=== PATIENT | female | born 1995 | race African-American/Black ===

== ENCOUNTER 2017-03-05 18:39 | Inpatient (IN) | payer MEDICAID, OTHER ==
--- NOTE | 2017-03-05 19:40 | ED ---
Psychiatric Complaint - HPI Summary HPI Summary: Pt arrives via ems and police for erratic behavior, not making sense. medication at pts residence has not been touched, "stock piled" per the act team person who called, leah stevens [phone]. also was mentioned that about a week ago pt appears fine and today was 'off the wall". On exam, patient is unable to answer direct questions and is disillusioned. She has been seen here before for similar issues and usually d/t stockpiling lithium and not taking her medications as prescribed. She is currently in a mental health facility. It is unclear is she has been using drugs, ETOH or other prescription medications d/t unclear speech. - History Of Current Complaint Chief Complaint: EDMentalHealth Time Seen by Provider: 03/05/17 18:54 Hx Obtained From: Patient ?: No Onset/Duration: Sudden Onset Timing: Constant Severity Initially: Moderate Severity Currently: Moderate Aggravating Factor(s): Medication Non-compliance Alleviating Factor(s): Medication Associated Signs And Symptoms: Positive: Confused, Hallucinating, Paranoid Behavior, Social Withdrawal, Social Isolation Related History: Positive For: Prior Psychiatric Issues, Drug Abuse Counseling, Admissions Related To Substance Abuse - Risk Factor(s) Completed Suicide Risk Factors: Negative - Allergies/Home Medications Allergies/Adverse Reactions: Allergies Allergy/AdvReac Type Severity Reaction Status Date / Time Penicillins Allergy Intermediate Rash Verified 08/04/16 18:53 Home Medications: Home Medications Divalproex ER TAB(*) [Depakote ER TAB(*)] 500 mg PO BEDTIME 03/05/17 [History Confirmed 03/05/17] Gabapentin CAP(*) [Neurontin 400 mg CAP(*)] 800 mg PO BID 03/05/17 [History Confirmed 03/05/17] Nicotine PATCH 7 MG/24 HR* 1 patch TRANSDERM DAILY 03/05/17 [History Confirmed 03/05/17] Norethindrone & Eth Estradiol [Nortrel 0.5/35 (28) 0.5-35 mg-Mcg] 1 tab PO DAILY 03/05/17 [History Confirmed 03/05/17] Ziprasidone HCl [Geodon] 60 mg PO BID 03/05/17 [History Confirmed 03/05/17] hydrOXYzine PAMOATE CAP* [Vistaril CAP*] 50 mg PO Q4HR PRN 03/05/17 [History Confirmed 03/05/17] PMH/Surg Hx/FS Hx/Imm Hx Previously Healthy: Yes Endocrine/Hematology History: Denies: Hx Diabetes Cardiovascular History: Denies: Hx Hypertension, Hx Pacemaker/ICD Respiratory History: Denies: Hx Asthma History: Denies: Hx Renal Disease Musculoskeletal History: Reports: Hx Back Problems - Chronic back pain Sensory History: Denies: Hx Hearing Aid Psychiatric History: Reports: Hx Anxiety, Hx Depression, Hx Inpatient Treatment , Hx Community Mental Health Tx, Hx Schizophrenia, Hx Bipolar Disorder, Hx Substance Abuse, Other Psychiatric Issues/Disorders Denies: Hx Eating Disorder, Hx Panic Disorder, Hx of Violent Episodes Against Others - Immunization History Date of Tetanus Vaccine: unk Date of Influenza Vaccine: unk Infectious Disease History: Unable to Obtain/Confirm Infectious Disease History: Denies: Traveled Outside the [place] in Last 30 Days - Family History Known Family History: Positive: Other - possible schizophrenia and depression to father. Brother -- autism - Social History Occupation: Unemployed Lives: Assisted Living Alcohol Use: None Hx Substance Use: Yes Substance Use Type: Reports: Marijuana Substance Use Comment - Amount & Last Used: Vague regarding amount and frequency , only acknowledges the use Hx Tobacco Use: Yes Smoking Status (MU): Light Every Day Tobacco Smoker Type: Cigarettes Amount Used/How Often: 3 cigarrettes a day maximum current smoker Have You Smoked in the Last Year: Yes Review of Systems - ROS Summary Review of Systems Summary: unable to complete a ROS d/t patients state Constitutional: Negative Eyes: Negative Cardiovascular: Negative Respiratory: Negative Positive: no symptoms reported, see HPI All Other Systems Reviewed And Are Negative: Yes Physical Exam Triage Information Reviewed: Yes Vital Signs On Initial Exam: Initial Vitals Temp Pulse Resp BP Pulse Ox 98 F 85 16 124/72 100 03/05/17 18:53 03/05/17 18:53 03/05/17 18:53 03/05/17 18:53 03/05/17 18:53 Vital Signs Reviewed: Yes Appearance: Positive: Well-Appearing, No Pain Distress, Well-Nourished Skin: Positive: Warm, Skin Color Reflects Adequate Perfusion Eyes: Positive: EOMI, DENISE Neck: Positive: Supple, No Lymphadenopathy Respiratory/Lung Sounds: Positive: Clear to Auscultation, Breath Sounds Present Cardiovascular: Positive: Normal, RRR, Pulses are Symmetrical in both Upper and Lower Extremities Musculoskeletal: Positive: Strength/ROM Intact Neurological: Positive: Alert, Oriented to Person Place, Time, CN Intact II-III Psychiatric: Positive: Normal AVPU Assessment: Alert - Yordan Coma Scale Best Eye Response: 4 - Spontaneous Best Motor Response: 6 - Obeys Commands Best Verbal Response: 5 - Oriented Coma Scale Total: 14 Diagnostics - Vital Signs Vital Signs Temp Pulse Resp BP Pulse Ox 03/05/17 18:53 98 F 85 16 124/72 100 - Laboratory Result Diagrams: 03/05/17 18:32 03/05/17 18:32 Lab Statement: Any lab studies that have been ordered have been reviewed, and results considered in the medical decision making process. Course/Dx - Course Course Of Treatment: Patient is well known to the ED for similar issues. Previously patient has not been taking depakote or lithium when she arrives with sxs such as these. Depakote and lithium level on patient. Patient [place] [facility] - Differential Dx/Clinical Impression Differential Diagnosis/HQI/PQRI: Positive: Acute Psychosis, Bipolar Disorder, Drug Overdose/Intentional, Schizophrenia Provider Diagnosis: Psychosis Discharge - Discharge Plan Condition: Stable Disposition: ADMITTED TO [facility] Discharge Disposition Comment: Admitted to [facility]
[2017-03-05 19:45] LABS: Hematocrit 37 % (35-47); Hemoglobin 12.3 g/dl (12.0-16.0); Mean Corpuscular HGB Conc 33 g/dl (31-36); Mean Corpuscular Hemoglobin 28 pg (27-31); Mean Corpuscular Volume 84 fL (80-97); Mean Platelet Volume 8 um3 (7.4-10.4); Red Blood Count 4.39 10^6/ul (4.0-5.4); Red Cell Distribution Width 15 % (10.5-15)
[2017-03-05 20:09] LABS: ALT 17 U/L (7-52); AST 24 U/L (13-39); Albumin 4.2 g/dL (3.2-5.2); Alkaline Phosphatase 71 U/L (34-104); Anion Gap 8 mmol/L (2-11); BUN/Creatinine Ratio 13.1 (8-20); Blood Urea Nitrogen 11 mg/dL (6-24); CO2 Carbon Dioxide 22 mmol/L (22-32); Calcium 9.5 mg/dL (8.6-10.3); Chloride 106 mmol/L (101-111); EGFR African American 111.2 (>60); EGFR Non-African American 86.4 (>60); Globulin 2.9 g/dL (2-4); Glucose 89 mg/dL (70-100); Potassium 3.9 mmol/L (3.5-5.0); Sodium 136 mmol/L (133-145); Total Protein 7.1 g/dL (6.4-8.9)
[2017-03-05 20:16] LABS: Acetaminophen < 15 mcg/mL; Alcohol < 10 mg/dL (<10); Lithium < 0.10 mmol/L (0.6-1.2); Salicylate < 2.50 mg/dL (<30)
[2017-03-05 20:25] LABS: TSH (Thyroid Stimulating Horm) 0.86 mcIU/mL (0.34-5.60)
[2017-03-05] MEDS ORDERED: Nicotine Inhaler* 10 MG AMP INH PRN (22:05)
[2017-03-05] MEDS ORDERED: Nicotine GUM* 2 MG PO PRN (22:05)
[2017-03-05] MEDS ORDERED: Mouth Piece, Nicotine* 1 EACH CARTRIDGE INH SCH (22:05)
[2017-03-05] MEDS ORDERED: Acetaminophen TAB* 325 MG PO PRN (22:05)
[2017-03-05] MEDS ORDERED: hydrOXYzine HCL TAB* 50 MG PO PRN (22:06)
[2017-03-05 22:07] LABS: Valproic Acid < 13.0 mcg/mL (50-100)
[2017-03-05] MEDS ORDERED: Docusate CAP* 100 MG PO PRN (22:07)
[2017-03-06] MEDS: Vitamin THERAPEUTIC TAB PO SCH (10:37)
[2017-03-06] MEDS: Gabapentin CAP(*) 400 MG PO SCH ×2 (10:39→22:00)
[2017-03-06] MEDS: Ziprasidone * 20 MG CAP (generic Geodon) PO SCH ×2 (10:39→22:02)
[2017-03-06] MEDS: Nicotine PATCH 7 MG/24 HR* PATCH TRANSDERM SCH (10:39)
[2017-03-06] MEDS: NORTREL PO SCH (10:40)
[2017-03-06] MEDS ORDERED: Ibuprofen TAB* 400 MG PO PRN (13:44)
--- NOTE | 2017-03-06 15:21 | HP ---
HISTORY AND PHYSICAL: DATE OF ADMISSION: 03/05/17 IDENTIFYING DATA: Marisa is a 21-year-old female of [place] descent with an extens maria a history of mental illness as well as substance abuse with multiple prior psychiatric hospitaliza tions, was readmitted to behavioral health unit last night because of disorganized behaviors at her residence. CHIEF COMPLAINT: "I just do not know how to associate with others." HISTORY OF PRESENT ILLNESS: This 21-year-old female was brought in by ambulance followed by [place] [employer]. According to the reports the patient was found in her room acting bizarre and wa s unresponsive initially followed by one- word answers, rasing a concern that she was risk to self a nd others. The patient actually contacted ACT Team making statements of being sorry for causing tro uble and existing as a being. Just like last evening, the patient had difficulty answering any ques tions and mostly answered with one word or two initially. Eventually, she opened up a little bit and reported that she was just trying to get away from the society and her family, especially her dad, because of some undisclosed reasons and then she reported that she has been experiencing some audito ry hallucinations as well as feeling like she could figure out what others were going to say or answ er if she asks them a question and that bothered her. Throughout the interview she tried to answer q uestions but became very emotional and tearful talking about her parents, her siblings, or anything related to her past made her very emotional and she wanted to get clear about why she goes to that. PAST PSYCHIATRIC HISTORY: Remarkable for multiple prior psychiatric hospitalizations on this unit. Her last admission was on 07/22/16, prior to that 06/17/16. She was discharged home on Depakote, G eodon, gabapentin, and hydroxyzine with a plan to follow up at [facility] as well as [facility] ACT Team. Per ACT Team report she has not been compliant with her medications a nd possibly involved in doing drugs. She did not give her urine samples during last night's admissi on and we do not know if there were any drugs involved in her mental status change last night. SUBSTANCE ABUSE HISTORY: As mentioned in HPI, there is a history of substance abuse including joon lee and she mentioned something about K2. Today she is very guarded and would not talk about any s ubstance abuse. PAST MEDICAL HISTORY: Unremarkable. ALLERGIES: PENICILLIN. FAMILY HISTORY: Marisa was born in [place] and moved to this county as a child and grew up in [place], went to school here. From collaterals it is event that she was a bright student. She has 2 sisters and a younger brother, she is the oldest among the siblings. She denies any one else in the family has mental illness; however, we are going to get collaterals to find out whether there was a nybody who has mental illness. PERSONAL OR SOCIAL HISTORY: Very limited because of the patient's uncooperativeness. She is the ol dest of 3 children from her parents who are from [place]. Marisa reports that she does not have much contact with her immediate family, although she stays in touch with her siblings. She graduated fr high school and went into college and then she did not want to talk anything about her education. 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 She left her parental home because she was asked by her mother to pay rent and there was some conflict i n the family. Since her mental status change she could not pursue her education, rather quit school and currently unemployed and mentally disabled. She does not have any legal problems. PHYSICAL EXAMINATION Was offered she just walked away; however, she does not appear to be in any kind of physical distres s at this time and from prior history there is no evidence of physical health issues. I reviewed the physical exam done in the emergency department, it is unremarkable. VITAL SIGNS: Taken this morning on the unit shows a blood pressure of 146/73, respirations 16, puls e 64, temperature 98.1, O2 sat 100. LABORATORY DATA: Labs done in the emergency department include a CBC with differential, CMP, and t ox screen. No urinalysis or urine drug screen available for review. Labs were pretty much unremark able. MENTAL STATUS EXAMINATION: The patient is a short-statured, healthy-appearing fema le wearing paper scrubs. Alert and oriented to time, place, and person. Makes good eye contact, so metimes intense. Speech is slow and frequently interrupted and stops saying anything for a while; h owever, it is mostly goal directed. At the time of evaluation, she reported feeling uncomfortable a round others as if they were being critical of her or staring at her, but denied any hallucinations, suicidal or homicidal ideations. Intelligence appears to be average as evidenced by her vocabulary , educational background, and fund of knowledge. Memory functions were grossly intact. Insight and judgement impaired. SUMMARY: This 21-year-old female with known history of substance abuse, multiple psychotic hospital izations, mostly in the context of nonadherence to treatments and ongoing substance abuse, was readm itted in a disorganized mental status. MENTAL HEALTH DIAGNOSIS: Psychosis NOS, rule out substance-induced psychosis. PHYSICAL HEALTH DIAGNOSIS: None. TREATMENT RECOMMENDATIONS: The patient will remain hospitalized on an involuntary basis for safety and stabilization. Her code status will remain full. Supportive milieu, individual, and group ther apy will be initiated. I will continue her outpatient medications and encourage her to continue to take it and will defer further changes to her assigned psychiatrist on the unit. [id number]/[facility] #: [id number]
--- NOTE | 2017-03-06 16:00 | ADMNOTE ---
Identification - Identify Employment Status: Disabled Hx Psychiatric Hospitalization: Yes Arrived to Hospital Via: BIB Ambulence History - Objective HPI: 21 y/o BF with prior h/o admission on [facility] on 07/22/16 was readmitted last night due to disorganized behavior at her retirement raising concern by ACT staff who found her unresponsive in her room and called [facility] for help and later brought her to the ED. She is limited but somewhat better cooperative today. Says she hasn't been taking her meds and reportedly was suspected of doing drugs. She heard voices yesterday and doesn't want to disclose if she was hearing voices today. Guarded and reports of feeling uncomfortable around others on the unit. Feels sad and depressed but denies SI/HI. Past Medical History: Unremarkable. Exam Appearance: Healthy Appearing Hygiene: Normal Grooming: Fairly Well Kept Psychomotor Activities: Abnormal-Decreased Exhibits Abnormal Movement: No Attitude and Relatedness: Guarded Eye Contact: Poor - Speech Quality: Unpressured Latencies: Normal Quantity: Terse Patient's Decription of Mood: "Sad" Observed Affect: Depressed Affect Consistent with: Dysphoria Patient's Thought Process: Coherent, Tangential, Circumstantial Thought Content: No Passive Wish, No Suicidal Planning, No Homicidal Ideation, No Paranoid Ideation Type of Hallucinations: Visual: No, Auditory: Yes, Command: No Level of Consciousness: Alert Orientation: Yes Intact, Yes Orientated to Time, Yes Orientated to Place, Yes Orientated to Person Impulse Control: Tenuous Insight and Judgement: Impaired Impression - Impression Merits Inpatient Hospitalization: Yes - [place] [facility] Mental Illness: Psychotic d/o NOS - [place] [facility] Medical Illness: No dx Plan - Treatment Plan Continued Medication Management: Continue Outpt Medication Medications: Current Medications Acetaminophen (Tylenol Tab*) 650 mg PO Q4H PRN PRN Reason: PAIN or TEMP > 101 F Al Hydrox/Mg Hydrox/Simethicone (Maalox Plus*) 30 ml PO Q4H PRN PRN Reason: INDIGESTION Device (Nicotine Mouth Piece*) 1 each INH .CARTRIDGE [facility] Divalproex Sodium (Depakote Dr Tab(*)) 500 mg PO BEDTIME [facility] Docusate Sodium (Colace Cap*) 100 mg PO DAILY PRN PRN Reason: CONSTIPATION Gabapentin (Neurontin Cap(*)) 800 mg PO BID [facility] Last Admin: 03/06/17 10:39 Dose: 800 mg Hydroxyzine HCl (Atarax Tab*) 50 mg PO Q4H PRN PRN Reason: . Last Admin: 03/06/17 10:37 Dose: 50 mg Ibuprofen (Motrin Tab*) 400 mg PO Q6H PRN PRN Reason: PAIN Multivitamins (Theragran Tab*) 1 tab PO DAILY [facility] Last Admin: 03/06/17 10:37 Dose: 1 tab Nicotine (Nicotine Inhaler*) 10 mg INH Q2H PRN PRN Reason: CRAVING Nicotine (Nicotine Patch 7 Mg/24 Hr*) 1 patch TRANSDERM DAILY [facility] Last Admin: 03/06/17 10:39 Dose: Not Given Nicotine Polacrilex (Nicotine Gum*) 2 mg PO Q2H PRN PRN Reason: CRAVING Nortrel ( Norethindrone/Ethinyl Estradiol) 0 .5/35 1 dose PO DAILY [facility] Last Admin: 03/06/17 10:40 Dose: Not Given Pharmacy Profile Note (Nicotine Patch Removal Note*) 1 note PATCH OFF 2099 [facility] Ziprasidone (Geodon (Generic) *) 60 mg PO BID [facility] Last Admin: 03/06/17 10:39 Dose: Not Given - Discharge Plan Discharge Plan: Outpatient Follow Up Outpatient Program: [facility]
[2017-03-06] MEDS: Divalproex DR TAB(*) 500 MG PO SCH (22:01)
[2017-03-06] MEDS: Nicotine Patch Removal NOTE PATCH OFF SCH (22:02)
[2017-03-07] MEDS: Vitamin THERAPEUTIC TAB PO SCH (09:28)
[2017-03-07] MEDS: Gabapentin CAP(*) 400 MG PO SCH ×2 (09:29→20:22)
[2017-03-07] MEDS: Ziprasidone * 20 MG CAP (generic Geodon) PO SCH ×4 (09:30→23:05)
[2017-03-07] MEDS: NORTREL PO SCH (09:37)
--- NOTE | 2017-03-07 11:43 | PN ---
Subjective - Subjective Service Type: [id number] Hosp care 15 min low complexity Subjective: Sreedhar is found in her bed under the covers where she smiles up at me and asks "Can I go now?" I inquire about her symptoms of unresponsiveness and disorganized behavior leading up to admission and she minimizes these, stating "It's just my way of showing love." She remains non-adherent with medications and states "Those don't work for me, they take me out of my high." We discuss several medication alternatives, such as paliperidone and aripiprazole, but she dismisses these, claiming to have had failed trials of them in the past. She does endorse conflict with her roommate at [facility] but denies SI or HI. Objective - Appearance Appearance: Well Developed/Nourished Dysmorphic Features: No Hygiene: Normal Grooming: Fairly Well Kept - Behavior Psychomotor Activities: Normal Exhibits Abnormal Movement: No - Attitude and Relatedness Attitude and Relatedness: Psychotically Related Eye Contact: Fair - Speech Quality: Unpressured Latencies: Normal Quantity: Appropriate - Mood Patient's Decription of Mood: "Fine" - Affect Observed Affect: Euphoric Affect Consistent with: Euphoria - Thought Process Patient's Thought Process: Loose Associations Thought Content: Yes Paranoid Ideation, No Passive Wish, No Suicidal Planning, No Homicidal Ideation - Sensorium Experiencing Hallucinations: No, Sensorium is Clear Type of Hallucinations: Visual: No, Auditory: No, Command: No - Level of Consciousness Level of Consciousness: Alert Orientation: Yes Intact, Yes Orientated to Time, Yes Orientated to Place, Yes Orientated to Person - Impulse Control Impulse Control: Poor - Insight and Judgement Insight and Judgement: Impaired - Group Participation Particating in Group Activities: No - Medication Management Medication Management Adherence: No Assessment - Assessment Merits Inpatient Hospitalization: For Immediate Safety, For Stabilization Inpatient DSM-IV Dx: Schizoaffective DO, Bipolar Type Clinical Impression: 21 y.o. single, AA female of [place] origin with a history of schizoaffective DO and minimal outpatient adherence to treatment who arrives on 9.41 due to bizarre, unresponsive behavior and inability to care for herself in the community. Plan - Plan Treatment Plan: Name: SREEDHAR MUKHERJEE Birthdate: 1995 [id number] We have resumed outpatient meds, including gabapentin, Depakote and ziprasidone , although she is refusing them thus far. She remains poorly organized, although more interactive. Continue inpatient treatment. Continued Medication Management: Continue Outpt Medication Medications: Current Medications Acetaminophen (Tylenol Tab*) 650 mg PO Q4H PRN PRN Reason: PAIN or TEMP > 101 F Al Hydrox/Mg Hydrox/Simethicone (Maalox Plus*) 30 ml PO Q4H PRN PRN Reason: INDIGESTION Device (Nicotine Mouth Piece*) 1 each INH .[facility]TRIDGE [facility] Divalproex Sodium (Depakote Dr Tab(*)) 500 mg PO BEDTIME [facility] Last Admin: 03/06/17 22:01 Dose: Not Given Docusate Sodium (Colace Cap*) 100 mg PO DAILY PRN PRN Reason: CONSTIPATION Gabapentin (Neurontin Cap(*)) 800 mg PO BID [facility] Last Admin: 03/07/17 09:29 Dose: 800 mg Hydroxyzine HCl (Atarax Tab*) 50 mg PO Q4H PRN PRN Reason: . Last Admin: 03/06/17 10:37 Dose: 50 mg Ibuprofen (Motrin Tab*) 400 mg PO Q6H PRN PRN Reason: PAIN Multivitamins (Theragran Tab*) 1 tab PO DAILY [facility] Last Admin: 03/07/17 09:28 Dose: 1 tab Nicotine (Nicotine Inhaler*) 10 mg INH Q2H PRN PRN Reason: CRAVING Nicotine (Nicotine Patch 7 Mg/24 Hr*) 1 patch TRANSDERM DAILY [facility] Last Admin: 03/06/17 10:39 Dose: Not Given Nicotine Polacrilex (Nicotine Gum*) 2 mg PO Q2H PRN PRN Reason: CRAVING Nortrel ( Norethindrone/Ethinyl Estradiol) 0 .5/35 1 dose PO DAILY [facility] Last Admin: 03/07/17 09:37 Dose: Not Given Pharmacy Profile Note (Nicotine Patch Removal Note*) 1 note PATCH OFF 2100 [facility] Last Admin: 03/06/17 22:02 Dose: Not Given Ziprasidone (Geodon (Generic) *) 60 mg PO BID [facility] Last Admin: 03/07/17 09:36 Dose: Not Given - Discharge Plan Discharge Plan: Inpatient Hospitalization
[2017-03-07] MEDS: Nicotine PATCH 7 MG/24 HR* PATCH TRANSDERM SCH ×2 (11:46→11:47)
[2017-03-07] MEDS: Divalproex DR TAB(*) 500 MG PO SCH ×2 (20:24→23:04)
[2017-03-07] MEDS: Nicotine Patch Removal NOTE PATCH OFF SCH (20:32)
[2017-03-07] MEDS: Al Hydrox/Mg Hydrox/Simet LIQ* 30 ML UDC PO PRN (23:26)
[2017-03-08 02:55] LABS: Urine Bacteria 1+ (Absent); Urine Bilirubin Negative (Negative); Urine Glucose Negative (Negative); Urine Nitrite Negative (Negative)
[2017-03-08] MEDS: Gabapentin CAP(*) 400 MG PO SCH ×2 (07:16→09:44)
[2017-03-08] MEDS: Divalproex DR TAB(*) 500 MG PO SCH ×2 (07:16→20:28)
[2017-03-08] MEDS: Ziprasidone * 20 MG CAP (generic Geodon) PO SCH ×3 (07:16→20:28)
[2017-03-08] MEDS: Vitamin THERAPEUTIC TAB PO SCH (09:44)
[2017-03-08] MEDS: Nicotine PATCH 7 MG/24 HR* PATCH TRANSDERM SCH (09:44)
[2017-03-08] MEDS: NORTREL PO SCH (09:50)
--- NOTE | 2017-03-08 11:00 | PN ---
Subjective - Subjective Service Type: 67232 Hosp care 15 min low complexity Subjective: Sreedhar presents as tired but organized and has mostly secluded herself to her room so far this morning. She became adherent with medications yesterday and does blame her somnolence on this fact. I challenge her lightly on this account , bringing up the concerns of the ACT team and the [place] agency that she appeared to be altered, as though using unknown substances of abuse just prior to admission, and suggesting perhaps that drug withdrawal was the cause of her fatigue. The patient denies abusing drugs prior to admission, stating "Oh, you' re talking about that bag they found in my room of old pills. That was just a bunch of medicine that was prescribed to me that I don't take anymore." She denies SI or HI and does not appear to be responding to internal stimuli. Objective - Appearance Appearance: Well Developed/Nourished Dysmorphic Features: No Hygiene: Normal Grooming: Fairly Well Kept - Behavior Psychomotor Activities: Normal Exhibits Abnormal Movement: No - Attitude and Relatedness Attitude and Relatedness: Cooperative Eye Contact: Fair - Speech Quality: Unpressured Latencies: Normal Quantity: Appropriate - Mood Patient's Decription of Mood: "Okay" - Affect Observed Affect: Fair Affect Consistent with: Euthymia - Thought Process Patient's Thought Process: Circumstantial Thought Content: No Passive Wish, No Suicidal Planning, No Homicidal Ideation, No Paranoid Ideation - Sensorium Experiencing Hallucinations: No, Sensorium is Clear Type of Hallucinations: Visual: No, Auditory: No, Command: No - Level of Consciousness Level of Consciousness: Alert Orientation: Yes Intact, Yes Orientated to Time, Yes Orientated to Place, Yes Orientated to Person - Impulse Control Impulse Control: Tenuous - Insight and Judgement Insight and Judgement: Fair - Group Participation Particating in Group Activities: No - Medication Management Medication Management Adherence: Yes Assessment - Assessment Merits Inpatient Hospitalization: [facility], For Discharge Planning Inpatient DSM-IV Dx: Schizoaffective DO, Bipolar Type Clinical Impression: 21 y.o. single, AA female of [place] origin with a history of schizoaffective DO and minimal outpatient adherence to treatment who arrives on 9.41 due to bizarre, unresponsive behavior and inability to care for herself in the community. Plan - Plan Treatment Plan: Name: SREEDHAR MUKHERJEE Birthdate: 1995 [id number] We have resumed outpatient meds, including gabapentin, Depakote and ziprasidone , and she is now agreeable, although she complains of sedation. We will discontinue gabapentin in the hopes that her adherence with the other medications improves. Her organization is improving and we could consider discharging her back to her [place] apartment as early as tomorrow. Continued Medication Management: Continue Outpt Medication Medications: Current Medications Acetaminophen (Tylenol Tab*) 650 mg PO Q4H PRN PRN Reason: PAIN or TEMP > 101 F Al Hydrox/Mg Hydrox/Simethicone (Maalox Plus*) 30 ml PO Q4H PRN PRN Reason: INDIGESTION Last Admin: 03/07/17 23:26 Dose: 30 ml Device (Nicotine Mouth Piece*) 1 each INH .CARTRIDGE [facility] Divalproex Sodium (Depakote Dr Tab(*)) 500 mg PO BEDTIME [facility] Last Admin: 03/08/17 07:16 Dose: Not Given Docusate Sodium (Colace Cap*) 100 mg PO DAILY PRN PRN Reason: CONSTIPATION Hydroxyzine HCl (Atarax Tab*) 50 mg PO Q4H PRN PRN Reason: . Last Admin: 03/06/17 10:37 Dose: 50 mg Ibuprofen (Motrin Tab*) 400 mg PO Q6H PRN PRN Reason: PAIN Multivitamins (Theragran Tab*) 1 tab PO DAILY [facility] Last Admin: 03/08/17 09:44 Dose: 1 tab Nicotine (Nicotine Inhaler*) 10 mg INH Q2H PRN PRN Reason: CRAVING Nicotine (Nicotine Patch 7 Mg/24 Hr*) 1 patch TRANSDERM DAILY [facility] Last Admin: 03/08/17 09:44 Dose: 1 patch Nicotine Polacrilex (Nicotine Gum*) 2 mg PO Q2H PRN PRN Reason: CRAVING Nortrel ( Norethindrone/Ethinyl Estradiol) 0 .5/35 1 dose PO DAILY [facility] Last Admin: 03/08/17 09:50 Dose: Not Given Pharmacy Profile Note (Nicotine Patch Removal Note*) 1 note PATCH OFF 2100 [facility] Last Admin: 03/07/17 20:32 Dose: 1 note Ziprasidone (Geodon (Generic) *) 60 mg PO BID [facility] Last Admin: 03/08/17 09:44 Dose: 60 mg - Discharge Plan Discharge Plan: Outpatient Follow Up Outpatient Program: ACT Team
[2017-03-08] MEDS: Nicotine Patch Removal NOTE PATCH OFF SCH (20:30)
[2017-03-08] MEDS: Al Hydrox/Mg Hydrox/Simet LIQ* 30 ML UDC PO PRN (21:20)
[2017-03-09 08:23] VITALS: BP 120/63
[2017-03-09] MEDS: Vitamin THERAPEUTIC TAB PO SCH (08:37)
[2017-03-09] MEDS: Ziprasidone * 20 MG CAP (generic Geodon) PO SCH (08:38)
[2017-03-09] MEDS: Nicotine PATCH 7 MG/24 HR* PATCH TRANSDERM SCH (08:38)
[2017-03-09] MEDS: NORTREL PO SCH (08:38)
[2017-03-09 08:59] LABS: HDL Cholesterol 46.6 mg/dL
[2017-03-09] MEDS ORDERED: diPHENhydraMINE IV* 50 MG/ML 1 ml VIAL (BENADRYL) ONE (10:57)
--- NOTE | 2017-03-09 11:33 | PN ---
MHU: Group Therapy Note - Service Type Service Type: [id number] Group Psychotherapy - Cognitive Behavioral Group Therapy ( CBT):Patient was attentive and participatory in CBT programming this morning, and remained in good behavioral control. Patient expressed positive insights regarding relevant treatment interventions and goals.
[2017-03-09] MEDS ORDERED: diPHENhydraMINE IV* 50 MG/ML 1 ml VIAL (BENADRYL) IM ONE (12:23)
--- NOTE | 2017-03-09 15:26 | DS ---
DATE OF ADMISSION: 03/05/17 DATE OF DISCHARGE: 03/09/17 DISCHARGE DIAGNOSES: Fallon I: Schizoaffective disorder, bipolar type. Fallon II: None. Fallon III: Non e. Fallon IV: Moderate primary support and housing stressors. Fallon V: At the time of admission was 3 0 and at the time of discharge is 60. CONDITION UPON RELEASE: Improved. The patient is able to respond to questions with coherent answer s. She is calm, cooperative. She has been attending groups. Her affect is bright and she is lookin g forward to spending the weekend at home in her apartment in [place], [place]. The psychotic unres ponsiveness that she presented with is fully resolved and she is able to speak not only of the prese nt, but also of the future. With respect to the future, she indicates that her plan is to follow up with her [facility], who is arriving to pick her up and transport her home to her supported housing apartment through the [facility] here in [place]. The patient is reque sting discharge and we see no reason that would justify keeping her any further on an involuntary ba sis. MENTAL STATUS EXAM AT THE TIME OF DISCHARGE: The patient is a young female of [place] descent who speaks with somewhat thick accent. She is calm, cooperative, clean, well gr oomed. Makes good eye contact. Mood is euthymic with a full affect. Through process is linear and goal directed. Thought content is significant for her desire to leave the hospital. She denies lewis icidal or homicidal ideation. She denies auditory or visual hallucinations. Insight and judgement are fair given her willingness to follow up with the [facility]. Cognitivel y, she is awake and alert with what would appear to be an average intellect. DISCHARGE INSTRUCTIONS TO THE PATIENT: A. Medications: She is taking Geodon 60 mg p.o. daily. She is taking Depakote 500 mg p.o. q.h.s. She takes a nicotine patch 7 mg transdermally daily and she takes hydroxyzine 50 mg up to every 4 hours for either anxiety or extrapyramidal side effects. She is also taking docusate 100 mg p.o. daily as a p.r.n. for constipation and she takes Nortrel oral co ntraceptive 1 dose p.o. daily. B. Diet: Regular. C. Activities: As tolerated. The patient is in the active stage of trying to quit smoking cigaret boyd and she accepts the continuation of nicotine replacement therapy as indicated in the medication section. There are no laboratory or diagnostic studies pending at this time of discharge. D. Followup Care: The patient is to follow up with the [facility] Treatment Team. They a re arriving this afternoon to pick the patient up and transport her to her supported living apartmen t. All clinical followups will be through that agency. HOSPITAL COURSE - PART A: Reason for admission: The patient is a 21-year-old mayo redding of Citizen [place] descent with an extensive history of mental illness as well as substance abuse with m augustine prior psychiatric hospitalizations who was brought in on the advice of the [facility] Treatment Team as well as her housing providers at the [facility] secondary to bizarre behav ior and inability to meet her own needs in the community. According to reports, the patient was fou nd in her room acting in a bizarre and unresponsive fashion making only 1-word nonsensical responses to questions asked by care providers. The patient did contact her ACT team making statements of be ing sorry for causing trouble and sorry for her existence as a being. She had difficulty answering questions and seemed to indicate when she could speak further that she wanted to get away from [facility] and her family. She did report that she has been experiencing some auditory hallucinations as we ll as feeling like she could figure out what people were about to say or answer questions before peo ple had even asked her. Throughout her initial interview, she tried to participate, but was very em otional and tearful and could not seem to provide a coherent history. HOSPITAL COURSE - PART B: Psychiatric treatment rendered: The patient was admitted to the [facility] unit where she was placed on q.15 minute checks for her own safety. Initially she r efused the resumption of outpatient medications, but she eventually changed her mind and did take De pakote and Geodon which she seemed to tolerate well. We were able to get collateral information fro m both the [facility] as well as the [facility] Treatment Team, both of whom seemed to indicate that until very recently the patient had been doing well in the community and th e onset of her decompensation appeared to be somewhat rapid making them wonder whether or not she pandey d used substances of abuse. It is notable that she did refuse a urine drug screen at the time of adm ission and we never did find any objective evidence of drug use. When I asked the patient about thi s topic, she indicates that at one point, her ACT team found a bag of old medicines in a plastic bag , but she denied that these were controlled substances and she further denied that she had used anyt zaire to get high in the community. Progressively, the patient became more interactive and more socia l. She became more reality focused, able to answer questions, able to carry on a conversation. At t he time of discharge, she appears fully back to her baseline, such as we understand it from prior ad missions and she is requesting discharge back to the community. Both the [facility] agencies are in agreement with the discharge plan and they are willing to come pick her up and transport her home. [id number]/[facility] #: [id number]
== END 2017-03-09 14:15 | disposition home or self-care (01) | DRG 750 ==
LOC: ED 18:39 → BSU 21:33
PROVIDERS: ADMIT Psychiatry & Neurology Psychiatry; ATTEND Psychiatry & Neurology Psychiatry
PROC: GZHZZZZ Group Psychotherapy (ICD-10-PCS; principal; 2017-03-05)
DX: F25.0 Schizoaffective disorder, bipolar type (principal); F41.9 Anxiety disorder, unspecified; Z88.0 Allergy status to penicillin; Z56.0 Unemployment, unspecified; F17.210 Nicotine dependence, cigarettes, uncomplicated; R40.2142 Coma scale, eyes open, spontaneous, at arrival to emergency department; R40.2362 Coma scale, best motor response, obeys commands, at arrival to emergency department; R40.2252 Coma scale, best verbal response, oriented, at arrival to emergency department
CPT/HCPCS: 36415; 80053; 80061; 80164; 80178; 80320; 80329; 81003; 81015; 83036; 84443; 85025; 87086; 90853; 99222; 99231; 99238; A9270-GY; G0480; J1200

== ENCOUNTER 2017-03-24 13:28 | Inpatient (IN) | payer MEDICAID, OTHER ==
[2017-03-24] MEDS ORDERED: diPHENhydraMINE IV* 50 MG/ML 1 ml VIAL (BENADRYL) IM ONE (14:15)
[2017-03-24] MEDS ORDERED: LORazepam INJ* 2 MG/ML 1 ML VIAL IM ONE (14:15)
[2017-03-24] MEDS ORDERED: Haloperidol INJ IV/IM* 5 MG/ML AMP IM ONE (14:16)
[2017-03-24] MEDS ORDERED: diPHENhydraMINE IV* 50 MG/ML 1 ml VIAL (BENADRYL) ONE (14:18)
[2017-03-24] MEDS ORDERED: Haloperidol INJ IV/IM* 5 MG/ML AMP ONE (14:18)
[2017-03-24] MEDS ORDERED: LORazepam INJ* 2 MG/ML 1 ML VIAL ONE (14:18)
[2017-03-24 15:45] LABS: Hematocrit 39 % (35-47); Hemoglobin 12.5 g/dl (12.0-16.0); Mean Corpuscular HGB Conc 32 g/dl (31-36); Mean Corpuscular Hemoglobin 28 pg (27-31); Mean Corpuscular Volume 86 fL (80-97); Mean Platelet Volume 8 um3 (7.4-10.4); Red Blood Count 4.56 10^6/ul (4.0-5.4); Red Cell Distribution Width 15 % (10.5-15); White Blood Count 6.4 10^3/ul (3.5-10.8)
[2017-03-24 15:59] LABS: ALT 14 U/L (7-52); AST 23 U/L (13-39); Albumin 4.3 g/dL (3.2-5.2); Alkaline Phosphatase 68 U/L (34-104); Anion Gap 8 mmol/L (2-11); BUN/Creatinine Ratio 16.5 (8-20); Blood Urea Nitrogen 16 mg/dL (6-24); CO2 Carbon Dioxide 22 mmol/L (22-32); Calcium 9.2 mg/dL (8.6-10.3); Chloride 106 mmol/L (101-111); EGFR African American 94.2 (>60); EGFR Non-African American 73.2 (>60); Globulin 3.1 g/dL (2-4); Glucose 81 mg/dL (70-100); Sodium 136 mmol/L (133-145); Total Protein 7.4 g/dL (6.4-8.9)
[2017-03-24 16:30] LABS: Acetaminophen < 15 mcg/mL; Alcohol < 10 mg/dL (<10); Salicylate < 2.50 mg/dL (<30)
--- NOTE | 2017-03-24 16:37 | ED ---
Psychiatric Complaint - HPI Summary HPI Summary: Patient presents to ED as 941 from [place] with increased thoughts of anger and suicide, mostly directly related to suicide in the media per patient. She denies ETOH, drug use or other complaints . She is tearful on exam and has flights of ideas and is often tangential when asking questions. She is known to the [facility] ED and psych unit. They were able to come to ED and promptly evaluate the patient in her previous state. Patient was then given a B52 and is currently calm. Denies HI or self harm. 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 ?: No Onset/Duration: Gradual Onset Timing: Intermittent Episode Lasting Severity Initially: Moderate Severity Currently: Moderate Character: Depressed, Angry, Frustrated Aggravating Factor(s): Nothing Alleviating Factor(s): Nothing Associated Signs And Symptoms: Positive: Hostile, Confused, Paranoid Behavior, Social Withdrawal Related History: Positive For: Prior Psychiatric Issues Has Suicidal: Reports: Thoughts - Risk Factor(s) Completed Suicide Risk Factors: Negative - Allergies/Home Medications Allergies/Adverse Reactions: Allergies Allergy/AdvReac Type Severity Reaction Status Date / Time Penicillins Allergy Intermediate Rash Verified 08/04/16 18:53 PMH/Surg Hx/FS Hx/Imm Hx Previously Healthy: Yes Endocrine/Hematology History: Denies: Hx Diabetes Cardiovascular History: Denies: Hx Hypertension, Hx Pacemaker/ICD Respiratory History: Denies: Hx Asthma History: Denies: Hx Renal Disease Musculoskeletal History: Reports: Hx Back Problems - Chronic back pain Sensory History: Denies: Hx Contacts or Glasses, Hx Hearing Aid Opthamlomology History: Denies: Hx Contacts or Glasses Psychiatric History: Reports: Hx Anxiety, Hx Depression, Hx Inpatient Treatment , Hx Community Mental Health Tx, Hx Schizophrenia, Hx Bipolar Disorder, Hx Substance Abuse, Other Psychiatric Issues/Disorders Denies: Hx Eating Disorder, Hx Panic Disorder, Hx of Violent Episodes Against Others - Immunization History Date of Tetanus Vaccine: unk Date of Influenza Vaccine: unk Hx Pertussis Vaccination: No Immunizations Up to Date: Unable to Obtain/Confirm Infectious Disease History: No Infectious Disease History: Denies: Traveled Outside the [place] in Last 30 Days - Family History Known Family History: Positive: Other - possible schizophrenia and depression to father. Brother -- autism - Social History Occupation: Unemployed, Disabled Lives: Intermediate Alcohol Use: None Hx Substance Use: Yes Substance Use Type: Reports: Marijuana Substance Use Comment - Amount & Last Used: Vague regarding amount and frequency , only acknowledges the use Hx Tobacco Use: Yes Smoking Status (MU): Light Every Day Tobacco Smoker Type: Cigarettes Amount Used/How Often: 3 cigarrettes a day maximum current smoker Have You Smoked in the Last Year: Yes Review of Systems Constitutional: Negative Eyes: Negative Cardiovascular: Negative Respiratory: Negative Gastrointestinal: Negative Positive: no symptoms reported, see HPI Skin: Negative Positive: Anxious, Depressed All Other Systems Reviewed And Are Negative: Yes Physical Exam Triage Information Reviewed: Yes Vital Signs On Initial Exam: Initial Vitals Resp 20 03/24/17 14:29 Vital Signs Reviewed: Yes Appearance: Positive: Well-Appearing, No Pain Distress, Well-Nourished Skin: Positive: Warm, Skin Color Reflects Adequate Perfusion Neck: Positive: Supple, Nontender, No Lymphadenopathy Respiratory/Lung Sounds: Positive: Clear to Auscultation, Breath Sounds Present Cardiovascular: Positive: Normal, RRR, Pulses are Symmetrical in both Upper and Lower Extremities Musculoskeletal: Positive: Normal, Strength/ROM Intact Neurological: Positive: Sensory/Motor Intact, Alert, Oriented to Person Place, Time Psychiatric: Positive: Normal AVPU Assessment: Alert - Yordan Coma Scale Best Eye Response: 4 - Spontaneous Best Motor Response: 6 - Obeys Commands Best Verbal Response: 5 - Oriented Coma Scale Total: 15 Diagnostics - Vital Signs Vital Signs Temp Pulse Resp BP Pulse Ox 03/24/17 15:48 99 F 75 16 125/64 100 03/24/17 14:29 20 - Laboratory Lab Results: Lab Results 03/24/17 03/24/17 Range/Units 15:38 15:38 WBC 6.4 (3.5-10.8) 10^3/ul RBC 4.56 (4.0-5.4) 10^6/ul Hgb 12.5 (12.0-16.0) g/dl Hct 39 (35-47) % MCV 86 (80-97) fL MCH 28 (27-31) pg MCHC 32 (31-36) g/dl RDW 15 (10.5-15) % Plt Count 292 (150-450) 10^3/ul MPV 8 (7.4-10.4) um3 Neut % (Auto) 70.5 (38-83) % Lymph % (Auto) 22.3 L (25-47) % [place] % (Auto) 5.4 (1-9) % Eos % (Auto) 0.7 (0-6) % Baso % (Auto) 1.1 (0-2) % Absolute Neuts (auto) 4.5 (1.5-7.7) 10^3/ul Absolute Lymphs (auto) 1.4 (1.0-4.8) 10^3/ul Absolute Monos (auto) 0.3 (0-0.8) 10^3/ul Absolute Eos (auto) 0 (0-0.6) 10^3/ul Absolute Basos (auto) 0.1 (0-0.2) 10^3/ul Absolute Nucleated RBC 0.01 10^3/ul Nucleated RBC % 0.1 Sodium 136 (133-145) mmol/L Potassium 4.0 (3.5-5.0) mmol/L Chloride 106 (101-111) mmol/L Carbon Dioxide 22 (22-32) mmol/L Anion Gap 8 (2-11) mmol/L BUN 16 (6-24) mg/dL Creatinine 0.97 H (0.51-0.95) mg/dL Est GFR ( Amer) 94.2 (>60) Est GFR (Non-Af Amer) 73.2 (>60) BUN/Creatinine Ratio 16.5 (8-20) Glucose 81 (70-100) mg/dL Calcium 9.2 (8.6-10.3) mg/dL Total Bilirubin 0.70 (0.2-1.0) mg/dL AST 23 (13-39) U/L ALT 14 (7-52) U/L Alkaline Phosphatase 68 (34-104) U/L Total Protein 7.4 (6.4-8.9) g/dL Albumin 4.3 (3.2-5.2) g/dL Globulin 3.1 (2-4) g/dL Albumin/Globulin Ratio 1.4 (1-3) TSH Pending Salicylates < 2.50 (<30) mg/dL Acetaminophen < 15 mcg/mL Serum Alcohol < 10 (<10) mg/dL Result Diagrams: 03/24/17 15:38 03/24/17 15:38 Lab Statement: Any lab studies that have been ordered have been reviewed, and results considered in the medical decision making process. Course/Dx - Course Course Of Treatment: Labs WNL. Patient is calm after B52 administration. Patient OK for MHU evaluation. - Differential Dx/Clinical Impression Provider Diagnosis: Psychosis Discharge - Discharge Plan Condition: Stable Disposition: OTHER Discharge Disposition Comment: MHU evaluation - signed out at this time
[2017-03-24 16:40] LABS: TSH (Thyroid Stimulating Horm) 1.61 mcIU/mL (0.34-5.60)
[2017-03-24 16:47] LABS: Urine Bacteria Absent (Absent); Urine Bilirubin Negative (Negative); Urine Glucose Negative (Negative); Urine Nitrite Negative (Negative)
[2017-03-24 16:58] LABS: Benzodiazepine Urine Screen None Detected (None Detect)
--- NOTE | 2017-03-24 18:48 | ED ---
Naseem Calderón Auryana, scribed for Flaco Sanchez MD on 03/24/17 at 1821 . Progress - Progress Note Progress Note: Patient will be admitted [place] [facility] [place] [facility] with diagnosis of psychosis by Dr. Salazar - Consult/PCP Time Called: 14:35 Course/Dx - Course Course Of Treatment: Labs WNL. Patient is calm after B52 administration. - Diagnoses Provider Diagnoses: Psychosis The documentation as recorded by the Naseem pastor Auryana accurately reflects the service I personally performed and the decisions made by Daniel campbell Walter, MD.
[2017-03-24] MEDS ORDERED: Mouth Piece, Nicotine* 1 EACH CARTRIDGE INH ONE (23:00)
[2017-03-24] MEDS ORDERED: Al Hydrox/Mg Hydrox/Simet LIQ* 30 ML UDC PO PRN (23:09)
[2017-03-24] MEDS ORDERED: Nicotine Inhaler* 10 MG AMP INH PRN (23:09)
[2017-03-24] MEDS ORDERED: Nicotine GUM* 2 MG PO PRN (23:09)
[2017-03-25] MEDS ORDERED: Docusate CAP* 100 MG PO PRN (00:50)
[2017-03-25] MEDS ORDERED: hydrOXYzine HCL TAB* 50 MG PO PRN (00:53)
[2017-03-25] MEDS: Gabapentin CAP(*) 400 MG PO SCH ×3 (07:24→21:03)
[2017-03-25] MEDS: Nicotine PATCH 7 MG/24 HR* PATCH TRANSDERM SCH ×2 (07:24→09:37)
[2017-03-25] MEDS: Ziprasidone * 20 MG CAP (generic Geodon) PO SCH ×3 (07:24→21:03)
[2017-03-25] MEDS: Divalproex DR TAB(*) 500 MG PO SCH ×2 (07:24→21:02)
[2017-03-25] MEDS: Vitamin THERAPEUTIC TAB PO SCH (08:25)
[2017-03-25] MEDS: NORETHINDRONE PO SCH (09:37)
[2017-03-25] MEDS: ETHINYL ESTRADIOL PO SCH (09:37)
[2017-03-25] MEDS: Acetaminophen TAB* 325 MG PO PRN (21:07)
[2017-03-25] MEDS: Nicotine Patch Removal NOTE PATCH OFF SCH (21:08)
--- NOTE | 2017-03-26 03:58 | HP ---
HISTORY AND PHYSICAL: DATE OF ADMISSION: 03/24/17 IDENTIFYING DATA: Marisa is a 21-year-old -Cymro female of [place] descent with an extensive history of mental illness as well as substance abuse with multiple prior psychiatric hospitalizations, last admission on 03/05/17, and just recently discharged to local ACT team, was brought into the emergency department by local law enforcement authority after her mother called them because of some unknown reason. CHIEF COMPLAINT: "I just don't understand why my mom brought me here." HISTORY OF PRESENT ILLNESS: This 21-year-old female with known history of psychiatric illness and repeated hospitalizations was brought into the emergency department by local law enforcement from her apartment in an agitated psychotic state where she was making incoherent statements as well as some statements about and dying. On today's evaluation, patient gives a different story about the circumstances leading up to this hospitalization. She states she was visiting one of her mom's friends in the [facility] to attend a constitution party and she found that the people over there were either unknown to her or were accusing her or judging her, so she did not stay inside the house and wandered away to a comfortable distance. At that time, her mother with her friends came and grabbed her to bring her to the emergency room. At that point , she tried to run away and her mom called the police, who eventually brought her to the emergency department. She denies or does not remember being disorganized, agitated, or psychotic. She states although she smokes marijuana , she did not do any drugs yesterday and she has been partially compliant with all her prescribed medications such as taking once in the evening instead of twice daily for some of her medications. She appeared coherent and goal directed at the time of assessment today and denied any hallucinations, delusions, suicidal or homicidal ideations. However, she has not been interacting with anyone on the unit and was found at the corner of the hallway sitting with all her food, not touching or eating them, saying that she did not have any appetite. PAST PSYCHIATRIC HISTORY: Remarkable for multiple prior psychiatric hospitalizations and the last one on 03/05/17 and discharged on 03/09/17. Prior to that, she was hospitalized here on 07/22/16 and 06/17/16. Her home medications included Depakote, Geodon, gabapentin, hydroxyzine, with a plan to see and be followed by ACT team. As mentioned earlier, she was only partially compliant with her medications. PAST MEDICAL HISTORY: Unremarkable. SUBSTANCE ABUSE HISTORY: She has an extensive history of substance abuse and smokes pot and sometimes K2. She denies using any other street drugs or drinking alcohol. ALLERGIES: PENICILLIN with rash. FAMILY HISTORY: Patient was born in [place] and moved to this country when she was a child. She grew up in the [facility]. After finishing school, she went to college. However, she never finished anything. She has two sisters and a younger brother. She is the oldest of all her siblings. There is no known family history of mental illness. PERSONAL AND SOCIAL HISTORY: Marisa lives in an apartment by herself and is being followed by the ACT team. She is unemployed and mentally disabled. PHYSICAL EXAMINATION Physical exam was offered; however, deferred per patient's request. Review of her physical examination done in the emergency department is unremarkable. She does not appear to be in any physical distress. Vitals show a blood pressure of 145/70, respirations 16, pulse 64, temperature 98.2, O2 saturation 100. LABORATORY DATA: Labs done in the emergency room was unremarkable as well, which included CBC with differential, comprehensive metabolic profile, tox screen, and urinalysis. MENTAL STATUS EXAMINATION: Marisa is a short-statured, healthy-appearing black female, wearing paper scrubs. She is alert and oriented to time, place, and person, makes good eye contact, sometimes intense. Her speech is normal in all spheres. Describes her mood as frustrated and observed affect appears to be dysphoric. Denies any hallucinations, delusions, suicidal or homicidal ideations. Intelligence appears to be average as evidenced by her vocabulary, educational background, and fund of knowledge. Memory functions are intact in all spheres. Insight and judgment impaired. SUMMARY: This 21-year-old female with known history of substance abuse, multiple psychiatric hospitalizations and treatment for psychiatric illness, was rehospitalized days after her discharge from this unit in an agitated, psychotic state. MENTAL HEALTH DIAGNOSES: Psychosis, NOS, rule out substance-induced psychosis. PHYSICAL HEALTH DIAGNOSIS: No diagnosis. TREATMENT RECOMMENDATIONS: Marisa will remain hospitalized on behavioral health unit on an involuntary status for her safety and stabilization of acute symptoms. Her code status will remain full. Supportive milieu, individual and group therapy will be initiated. We will continue her on all her outpatient medications and defer further changes to her treatment to her psychiatrist on the unit. [id number]/[facility] #: [id number] DANNA
[2017-03-26] MEDS: Gabapentin CAP(*) 400 MG PO SCH ×2 (08:24→20:13)
[2017-03-26] MEDS: Ziprasidone * 20 MG CAP (generic Geodon) PO SCH ×2 (08:25→20:13)
[2017-03-26] MEDS: Vitamin THERAPEUTIC TAB PO SCH (08:25)
[2017-03-26] MEDS: NORETHINDRONE PO SCH (09:39)
[2017-03-26] MEDS: ETHINYL ESTRADIOL PO SCH (09:39)
[2017-03-26] MEDS: Nicotine PATCH 7 MG/24 HR* PATCH TRANSDERM SCH (09:39)
--- NOTE | 2017-03-26 13:27 | PN ---
Subjective - Subjective Service Type: 16831 Hosp care 15 min low complexity Subjective: Sreedhar is taking meds as directed. Is somewhat pressured and intense. Seen today, along with SW Amie Salgado, who informs patient that DSS is threatening to cut off her financial support, claiming that she has not applied for SSI/ disability yet. Sreedhar insists that she applied for Disability and was denied and that a scientific associate for the ACT team told her not to appeal the decision. The patient is agreeable to working on the computer to update her SSI application. She appears somewhat paranoid and blames her mother for placing her in the hospital. She denies SI or HI. Objective - Appearance Appearance: Well Developed/Nourished Dysmorphic Features: No Hygiene: Normal Grooming: Fairly Well Kept - Behavior Psychomotor Activities: Normal Exhibits Abnormal Movement: No - Attitude and Relatedness Attitude and Relatedness: Appropriate Eye Contact: Fair - Speech Quality: Pressured Latencies: Short Quantity: Copious - Mood Patient's Decription of Mood: "Irritable" - Affect Observed Affect: Tense Affect Consistent with: Dysphoria - Thought Process Patient's Thought Process: Coherent Thought Content: Yes Paranoid Ideation, No Passive Wish, No Suicidal Planning, No Homicidal Ideation - Sensorium Experiencing Hallucinations: No, Sensorium is Clear Type of Hallucinations: Visual: No, Auditory: No, Command: No - Level of Consciousness Orientation: Yes Intact, Yes Orientated to Time, Yes Orientated to Place, Yes Orientated to Person - Impulse Control Impulse Control: Poor - Insight and Judgement Insight and Judgement: Impaired - Group Participation Particating in Group Activities: No - Medication Management Medication Management Adherence: Yes - Additional Observations Comments: LABS from 03/09/17: Cholesterol: 137 Triglycerides: 105 LDL: 69 HDL: 46.6 Hemoglobin A1c: 5.0% Assessment - Assessment Merits Inpatient Hospitalization: For Immediate Safety, For Stabilization Inpatient DSM-IV Dx: Schizoaffective DO, Bipolar Type Clinical Impression: 21 y.o. single, AA female of [place] origins, with a history of schizoaffective , bipolar disorder, admitted as a failed discharge following an earlier admission to the [facility] in March,, who now returns on 9.41 due to paranoid, bizarre behavior in the community. Plan - Plan Treatment Plan: Name: SREEDHAR MUKHERJEE Birthdate: 1995 [id number] The patient is adherent with her outpatient regimen, including ziprasidone, Depakote, gabapentin and hydroxyzine. SW to assist in reapplying for SSI/ Disability to avoid homelessness and the loss of financial assistance. Will gather collateral information from family, [place] and ACT team. Continue to treat on an inpatient basis. Continued Medication Management: Continue Outpt Medication Medications: Current Medications Acetaminophen (Tylenol Tab*) 650 mg PO Q4H PRN PRN Reason: PAIN or TEMP > 101 F Last Admin: 03/25/17 21:07 Dose: 650 mg Al Hydrox/Mg Hydrox/Simethicone (Maalox Plus*) 30 ml PO Q4H PRN PRN Reason: INDIGESTION Divalproex Sodium (Depakote Dr Tab(*)) 500 mg PO BEDTIME [facility] Last Admin: 03/25/17 21:02 Dose: 500 mg Docusate Sodium (Colace Cap*) 100 mg PO ONCE PRN PRN Reason: CONSTIPATION Gabapentin (Neurontin Cap(*)) 800 mg PO BID [facility] Last Admin: 03/26/17 08:24 Dose: 800 mg Hydroxyzine HCl (Atarax Tab*) 50 mg PO Q6H PRN PRN Reason: ANXIETY Multivitamins (Theragran Tab*) 1 tab PO DAILY [facility] Last Admin: 03/26/17 08:25 Dose: 1 tab Nicotine (Nicotine Inhaler*) 10 mg INH Q2H PRN PRN Reason: CRAVING Last Admin: 03/25/17 08:23 Dose: 10 mg Nicotine (Nicotine Patch 7 Mg/24 Hr*) 1 patch TRANSDERM DAILY [facility] Last Admin: 03/26/17 09:39 Dose: Not Given Nicotine Polacrilex (Nicotine Gum*) 2 mg PO Q2H PRN PRN Reason: CRAVING Norethindrone & Ethinyl Estradiol Tablets 1 dose PO DAILY [facility] Last Admin: 03/26/17 09:39 Dose: Not Given Pharmacy Profile Note (Nicotine Patch Removal Note*) 1 note PATCH OFF 2100 [facility] Last Admin: 03/25/17 21:08 Dose: Not Given Ziprasidone (Geodon (Generic) *) 60 mg PO BID [facility] Last Admin: 03/26/17 08:25 Dose: 60 mg - Discharge Plan Discharge Plan: Inpatient Hospitalization
[2017-03-26] MEDS: Divalproex DR TAB(*) 500 MG PO SCH (20:13)
[2017-03-26] MEDS: Nicotine Patch Removal NOTE PATCH OFF SCH (20:15)
[2017-03-27 07:24] VITALS: BP 123/74
[2017-03-27] MEDS: Gabapentin CAP(*) 400 MG PO SCH (08:02)
[2017-03-27] MEDS: Vitamin THERAPEUTIC TAB PO SCH (08:02)
[2017-03-27] MEDS: Ziprasidone * 20 MG CAP (generic Geodon) PO SCH (08:03)
[2017-03-27] MEDS: Acetaminophen TAB* 325 MG PO PRN (08:04)
[2017-03-27] MEDS: ETHINYL ESTRADIOL PO SCH (08:14)
[2017-03-27] MEDS: Nicotine PATCH 7 MG/24 HR* PATCH TRANSDERM SCH (08:14)
[2017-03-27] MEDS: NORETHINDRONE PO SCH (08:14)
[2017-03-27] MEDS ORDERED: Hydrocortisone 1% CREAM* 30 GM TUBE TOPICAL SCH (11:00)
--- NOTE | 2017-03-27 13:56 | PN ---
MHU: Group Therapy Note - Service Type Service Type: [id number] Group Psychotherapy - Cognitive Behavioral Group Therapy ( CBT):Patient was attentive and participatory in CBT programming this morning, and remained in good behavioral control. Patient expressed positive insights regarding relevant treatment interventions and goals.
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
== END 2017-03-27 14:20 | disposition home or self-care (01) | DRG 750 ==
LOC: ED 13:28 → BSU 19:19
PROVIDERS: ADMIT Psychiatry & Neurology Psychiatry; ATTEND Psychiatry & Neurology Psychiatry
PROC: GZHZZZZ Group Psychotherapy (ICD-10-PCS; principal; 2017-03-24)
DX: F25.0 Schizoaffective disorder, bipolar type (principal); F41.9 Anxiety disorder, unspecified; Z88.0 Allergy status to penicillin; Z56.0 Unemployment, unspecified; G89.29 Other chronic pain; M54.9 Dorsalgia, unspecified; Z81.8 Family history of other mental and behavioral disorders; F17.210 Nicotine dependence, cigarettes, uncomplicated
CPT/HCPCS: 36415; 80053; 80307; 80320; 80329; 81003; 81015; 84443; 85025; 87086; 90853; 99222; 99231; 99238; A9270-GY; G0480; J1200; J1630; J2060

== ENCOUNTER 2017-05-24 13:06 | Emergency (ER) | payer MEDICAID, OTHER ==
--- NOTE | 2017-05-24 14:54 | UC ---
Knee Pain HPI - HPI Summary HPI Summary: left knee pain began after yoga and elliptical workout 3 days ago---then rode her bike---distal anterior pain with movement - History of Current Complaint Chief Complaint: UCLowerExtremity Stated Complaint: KNEE COMPLAINT Time Seen by Provider: 05/24/17 14:52 Hx Obtained From: Patient Hx Last Menstrual Period: 05/09/17 ?: No Onset/Duration: Sudden Onset, Lasting Days - 3 Severity Initially: Moderate Severity Currently: Moderate Location Of Injury: left knee Pain Intensity: 5 Pain Scale Used: 0-10 Numeric Character: Aching, Throbbing, Spasmodic Aggravating Factor(s): Movement, Weight Bearing Associated Signs And Symptoms: Positive: Swelling Able to Bear Weight: Yes - with pain - Allergies/Home Medications Allergies/Adverse Reactions: Allergies Allergy/AdvReac Type Severity Reaction Status Date / Time Penicillins Allergy Intermediate Rash Verified 05/24/17 13:13 Home Medications: Home Medications Gabapentin CAP(*) [Neurontin 400 mg CAP(*)] 400 mg PO TID 05/24/17 [History Confirmed 05/24/17] PMH/Surg Hx/FS Hx/Imm Hx Previously Healthy: No Psychological History: Schizophrenia - Surgical History Surgical History: None - Family History Known Family History: Positive: Other - possible schizophrenia and depression to father. Brother -- autism - Social History Occupation: Student Lives: Dormitory/Roommates Alcohol Use: Rare Substance Use Type: None Substance Use Comment - Amount & Last Used: Vague regarding amount and frequency , only acknowledges the use Smoking Status (MU): Light Every Day Tobacco Smoker Type: Cigarettes Amount Used/How Often: 3-4 sig a day Length of Time of Smoking/Using Tobacco: patient has smoked cigarettes within the last 30 days. Have You Smoked in the Last Year: Yes Household Exposure Type: Cigarettes - Immunization History Most Recent Influenza Vaccination: none Most Recent Tetanus Shot: Unsure Most Recent Pneumonia Vaccination: unable to determine Review of Systems Constitutional: Negative Skin: Negative Eyes: Negative ENT: Negative Respiratory: Negative Cardiovascular: Negative Gastrointestinal: Negative Genitourinary: Negative Motor: Negative Neurovascular: Negative Musculoskeletal: Arthralgia - left knee, Edema - left knee Neurological: Negative Psychological: Negative Is Patient Immunocompromised?: No All Other Systems Reviewed And Are Negative: Yes Physical Exam Triage Information Reviewed: Yes Appearance: Well-Appearing, Well-Nourished, Pain Distress - mild Vital Signs: Initial Vital Signs Temp 97.8 F 05/24/17 13:08 Pulse 66 05/24/17 13:08 Resp 16 05/24/17 13:08 BP 112/55 05/24/17 13:08 Pulse Ox 100 05/24/17 13:08 Vital Signs Reviewed: Yes Eye Exam: Normal Eyes: Positive: Conjunctiva Clear ENT Exam: Normal ENT: Positive: Normal ENT inspection, Hearing grossly normal. Negative: Nasal congestion, Nasal drainage, Trismus, Muffled/hoarse voice Dental Exam: Normal Neck exam: Normal Neck: Positive: Supple, Nontender Respiratory Exam: Normal Respiratory: Positive: Chest non-tender, No respiratory distress, No accessory muscle use Cardiovascular Exam: Normal Cardiovascular: Positive: RRR, Pulses Normal, Brisk Capillary Refill Musculoskeletal Exam: Other - limited due to pain in left knee Musculoskeletal: Positive: Strength Limited @, ROM Limited @, Edema @ Neurological Exam: Normal Neurological: Positive: Alert Psychological Exam: Normal Skin Exam: Normal Diagnostics - Radiology No standard instances Xray Interpretation: Positive (See Comments) - moderate joint effusion left knee Radiology Interpretation Completed By: Radiologist Knee Pain Course/Dx - Course Course Of Treatment: rice, ibuprofen, dotty, knee immoblizer, crutches follow with ortho in next 3-5 days - Differential Dx/Diagnosis Differential Diagnosis/HQI/PQRI: Cellulitis, Fracture (Closed), Internal Derangement Of Knee, Infection, Sprain, Strain Provider Diagnoses: Left knee joint effusion Discharge - Discharge Plan Condition: Stable Disposition: HOME Prescriptions: Ibuprofen TAB* [Motrin TAB* 600 MG] 600 mg PO Q6H PRN #30 tab PRN Reason: pain left knee Patient Education Materials: Crutch Instructions (ED), Swollen Knee Joint (ED) , RICE Therapy (ED), Knee Immobilizer (ED) Referrals: Phyllis Stafford MD [Medical Doctor] - 4 Days
[2017-05-24] MEDS ORDERED: Ibuprofen TAB* 600 MG PO ONE (14:59)
[2017-05-24 15:38] VITALS: BP 119/75
--- NOTE | 2017-05-24 15:41 | RAD ---
Indication: LEFT knee pain and swelling following injury 3 days ago. Pain with flexion just distal to patella anteriorly. Comparison: No relevant prior exams available on the [facility] [place] for comparison. Technique: LEFT knee: AP, tunnel, lateral, sunrise views. Report: Small to moderate joint effusion and edema at the infrapatellar fat pad. No fat fluid level visualized. No cortical disruption or suspicious trabecular irregularity to suggest fracture. Normal alignment. Preserved joint spaces. Very mild anterior soft tissue swelling. IMPRESSION: Small to moderate joint effusion without fat fluid level. No fracture evident. Mild anterior soft tissue swelling. Correlate with clinical assessment and consider MRI to evaluate for ligament, tendon, or cartilage pathology if deemed appropriate.
== END 2017-05-24 16:30 | disposition home or self-care (01) ==
LOC: UCEAST 13:06
DX: M25.462 Effusion, left knee (principal); F20.9 Schizophrenia, unspecified; Z88.0 Allergy status to penicillin; F17.210 Nicotine dependence, cigarettes, uncomplicated
CPT/HCPCS: 99213; A9270-GY; G0463

== ENCOUNTER 2018-02-08 13:38 | Inpatient (IN) | payer OTHER ==
[2018-02-08] MEDS ORDERED: diPHENhydraMINE IV* 50 MG/ML 1 ml VIAL (BENADRYL) ONE (13:43)
[2018-02-08] MEDS ORDERED: LORazepam INJ* 2 MG/ML 1 ML VIAL ONE (13:43)
[2018-02-08] MEDS ORDERED: Haloperidol INJ IV/IM* 5 MG/ML AMP ONE (13:43)
[2018-02-08 14:48] LABS: ABS Basophils 0 10^3/ul (0-0.2); ABS Eosinophils 0 10^3/ul (0-0.6); ABS Lymphocytes 2.1 10^3/ul (1.0-4.8); ABS Monocytes 0.6 10^3/ul (0-0.8); ABS Neutrophils 4.6 10^3/ul (1.5-7.7); ABS Nucleated RBC 0 10^3/ul; Eosinophil % 0.5 % (0-6); Hematocrit 35 % (35-47); Hemoglobin 11.4 g/dl (12.0-16.0); Lymphocyte % 28.4 % (25-47); Mean Corpuscular HGB Conc 33 g/dl (31-36); Mean Corpuscular Hemoglobin 28 pg (27-31); Mean Corpuscular Volume 86 fL (80-97); Nucleated Red Blood Cells % 0.1; Platelet Count 246 10^3/ul (150-450); Red Blood Count 4.04 10^6/ul (4.0-5.4); Red Cell Distribution Width 14 % (10.5-15); White Blood Count 7.4 10^3/ul (3.5-10.8)
[2018-02-08 15:11] LABS: EGFR Non-African American 93.2 (>60)
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
[2018-02-08] MEDS ORDERED: Al Hydrox/Mg Hydrox/Simet LIQ* 30 ML UDC PO PRN (18:41)
[2018-02-08] MEDS ORDERED: Mouth Piece, Nicotine* 1 EACH CARTRIDGE INH ONE (22:20)
[2018-02-08] MEDS ORDERED: Mouth Piece, Nicotine* 1 EACH CARTRIDGE ONE (22:44)
[2018-02-08] MEDS ORDERED: Nicotine Inhaler* 10 MG AMP ONE (22:44)
[2018-02-08] MEDS ORDERED: Nicotine GUM* 2 MG ONE (22:44)
[2018-02-09] MEDS ORDERED: diPHENhydraMINE IV* 50 MG/ML 1 ml VIAL (BENADRYL) IM ONE (00:52)
[2018-02-09] MEDS ORDERED: LORazepam INJ* 2 MG/ML 1 ML VIAL IM ONE (00:52)
[2018-02-09] MEDS ORDERED: Haloperidol INJ IV/IM* 5 MG/ML AMP IM ONE (00:52)
[2018-02-09] MEDS ORDERED: OLANzapine TAB*ODT* 5 MG PO ONE (00:52)
[2018-02-09] MEDS ORDERED: LORazepam INJ* 2 MG/ML 1 ML VIAL ONE ×2 (00:59→14:41)
[2018-02-09] MEDS ORDERED: diPHENhydraMINE IV* 50 MG/ML 1 ml VIAL (BENADRYL) ONE (00:59)
[2018-02-09] MEDS ORDERED: OLANzapine TAB*ODT* 5 MG ONE (00:59)
[2018-02-09] MEDS ORDERED: Haloperidol INJ IV/IM* 5 MG/ML AMP ONE (01:00)
--- NOTE | 2018-02-09 01:29 | PN ---
Progress Note - Progress Note Date of Service: 02/09/18 Note: CAT x2 response Mrs Woo was the subject of 2 CAT calls. Each for 'seizure-like' activity. However, upon my arrival she was not seizing and did not appear post-ictal. At one point she was on the ground shaking all over, calling out for her 'Auntie' with her eyes closed. During another, she was noted by nursing to maintain a mouthful of water while 'seizing' only to spit it out afterwards. She was refusing blood draws and vital signs. After the 2nd episode, she did allow blood to be drawn, but kept yelling 'regional property manager' during. Otherwise, she appeared to have disorganized thinking, expressed paranoid and delusional thoughts that some of her medication was 'laced'. Labs were drawn and sent, but were not immediately run. As such the lactic acid of 2.6 is inaccurate as it was run ~3 hours after being drawn. When lab presented to redraw the lactic acid, Mrs Woo refused. Lab work was otherwise reasonably normal and non-specific. While protocol recommends transferring a patient with 2 rapid sequence CAT calls to ICU, at this time I see no evidence of a medical condition requiring treatment. Additionally, her illness does appear to be psychiatric and removing her from the behavioral services unit would effectively decrease the facilities ability to adequately treat her.
[2018-02-09 04:29] LABS: ABS Basophils 0.1 10^3/ul (0-0.2); ABS Eosinophils 0 10^3/ul (0-0.6); ABS Lymphocytes 3.5 10^3/ul (1.0-4.8); ABS Monocytes 0.8 10^3/ul (0-0.8); ABS Neutrophils 6.2 10^3/ul (1.5-7.7); ABS Nucleated RBC 0.1 10^3/ul; Eosinophil % 0.4 % (0-6); Hematocrit 39 % (35-47); Hemoglobin 12.8 g/dl (12.0-16.0); Lymphocyte % 32.8 % (25-47); Mean Corpuscular HGB Conc 33 g/dl (31-36); Mean Corpuscular Hemoglobin 29 pg (27-31); Mean Corpuscular Volume 87 fL (80-97); Mean Platelet Volume 8.6 um3 (7.4-10.4); Nucleated Red Blood Cells % 0.6; Platelet Count 278 10^3/ul (150-450); Red Blood Count 4.46 10^6/ul (4.0-5.4); Red Cell Distribution Width 14 % (10.5-15); White Blood Count 10.7 10^3/ul (3.5-10.8)
[2018-02-09 04:37] LABS: EGFR Non-African American 68.4 (>60)
[2018-02-09] MEDS: Nicotine PATCH 14 MG/24 HR* PATCH TRANSDERM SCH (09:01)
[2018-02-09] MEDS: Vitamin THERAPEUTIC TAB PO SCH (09:01)
[2018-02-09] MEDS ORDERED: Ziprasidone IM INJ* 20 MG/ML VIAL ONE (13:54)
[2018-02-09] MEDS ORDERED: Ziprasidone IM INJ* 20 MG/ML VIAL IM ONE (13:57)
--- NOTE | 2018-02-09 17:13 | HP ---
HISTORY AND PHYSICAL: DATE OF ADMISSION: 02/08/18 IDENTIFYING DATA: Marisa is a 22-year-old female of [place] descent with an extensive history of mental illness, repeated psychiatric hospitalizations here on the behavioral science unit and her last admission to this unit was March of last year. Marisa also has an extensive history of substance abuse. CHIEF COMPLAINT: "You have to talk to my mom and go away." HISTORY OF PRESENT ILLNESS: Marisa was brought to the emergency department by law enforcement after they, along with the SWAT team, showed up to her apartment following a distressed called from Marisa's mother who reported that she was threatening to kill other people and had a knife in her hands. She initially medicated herself, but later was brought to the emergency department where she was agitated and aggressive requiring IM injections. Since her transfer to the unit, she required multiple stat medications, all intramuscular. She has been disorganized, extremely paranoid, jumping on her bed and showing verbal and physical aggression. Multiple attempts to engage her into conversation since this morning were all unsuccessful. A few minutes ago, she was standing at the corner holding a salt shaker in her hand and popping handful of salt into her mouth and then drooling. She appears to be very paranoid, going into the corner of the unit, extremely tensed. She refused to take any oral medications and we were forced to call for help from the security and they are in the process of giving her 20 mg Geodon IM stat. She threw the salt shaker on the floor and stomped it and broke it and showing signs of aggression towards other people. Rest of the history is going to be reported from collateral informations that I have. PAST PSYCHIATRIC HISTORY: Remarkable for multiple repeated psychiatric hospitalizations, mostly last year. Her home medications were Depakote, Geodon , gabapentin, hydroxyzine, which according to collateral, she did not take. She was also noncompliant with her appointments. PAST MEDICAL HISTORY: Unremarkable. SUBSTANCE ABUSE HISTORY: Marisa has an extensive history of smoking marijuana along with K2. She denies drinking alcohol. ALLERGIES: PENICILLIN with a reaction of rash. FAMILY HISTORY: The patient was born in [place] and moved to this country when she was a child. She grew up in the [facility]. After finishing high school, she went to college; however, could not continue for long because of repeated hospitalizations for mental health reason. She has 2 sisters and a younger brother. She is the oldest of all her siblings. There is no known history of mental illness in her family members. PERSONAL AND SOCIAL HISTORY: Also includes Marisa lives in an apartment by herself and was being followed by [facility] team. She is supported by her social security benefits. PHYSICAL EXAMINATION Not possible at this time because of acute psychotic state. I have reviewed the physical exam done in the emergency department, which is unremarkable. VITAL SIGNS: Show a blood pressure of 167/101, pulse rate 82, temperature 98.3 degrees Fahrenheit, pulse ox 98% on room air, respirations 16. LABORATORY DATA: Labs done include a CBC with differential, comprehensive metabolic profile. She refused to provide urine sample, so urinalysis or urine drug screen was not performed. CBC shows a WBC count of 7.4, hemoglobin 11.4 with hematocrit of 35, platelet count is 246,000. Comprehensive metabolic profile shows a sodium level of 137, potassium 3.5, chloride 106, carbon dioxide 22, GFR 119.9. Rest of the lab reports are all unremarkable. At this time, she does not appear to be in any kind of physical distress. MENTAL STATUS EXAMINATION: Marisa is a healthy-appearing, average height female who is appropriately dressed, fairly groomed with fair personal hygiene. At this time, she is extremely paranoid and guarded, unwilling to cooperate with the examination. She is also showing some signs of aggression, threw the salt shaker on the floor and stomped on it, requiring the safety to be called and get her to the quiet room. SUMMARY: This 22-year-old female with known history of mental illness and extensive history of substance use who is being rehospitalized in the context of acute psychosis and threats of physical violence towards others. MENTAL HEALTH DIAGNOSES: As per last discharge summary: 1. Schizoaffective disorder, bipolar type. 2. Cannabis use disorder. PHYSICAL HEALTH DIAGNOSIS: None. TREATMENT RECOMMENDATIONS: Marisa will remain hospitalized against her will for her safety and safety to others. Her code status will remain full. While on the unit, supportive milieu, individual and group therapy will be initiated and she will be encouraged to participate as she tolerates. At this time, she is unwilling to accept any help including medications and has already received multiple stat medications with Haldol, Benadryl, lorazepam, and finally IM Geodon. I will resume her on her discharge medications and we will try to encourage her to take them or continue to manage her as situation gets worse. [id number]/CPS #: [id number] MTDD
[2018-02-09] MEDS: Haloperidol TAB* 5 MG PO PRN (19:02)
[2018-02-09] MEDS: LORazepam TAB(*) 1 MG PO PRN (19:04)
[2018-02-09] MEDS: Ziprasidone * 20 MG CAP (generic Geodon) PO SCH (20:02)
[2018-02-09] MEDS: Ziprasidone CAP* 80 MG PO SCH (20:03)
[2018-02-10] MEDS: Nicotine Patch Removal NOTE PATCH OFF SCH ×2 (01:00→21:34)
[2018-02-10] MEDS: LORazepam TAB(*) 1 MG PO PRN ×3 (01:35→08:37)
[2018-02-10] MEDS: Haloperidol TAB* 5 MG PO PRN (01:35)
[2018-02-10] MEDS: Divalproex DR TAB(*) 500 MG PO SCH (08:30)
[2018-02-10] MEDS: Gabapentin CAP(*) 400 MG PO SCH (08:30)
[2018-02-10] MEDS: Vitamin THERAPEUTIC TAB PO SCH (08:36)
[2018-02-10] MEDS: Nicotine PATCH 14 MG/24 HR* PATCH TRANSDERM SCH (08:51)
[2018-02-10] MEDS: Ziprasidone * 20 MG CAP (generic Geodon) PO SCH ×2 (21:33→23:30)
[2018-02-10] MEDS: Ziprasidone CAP* 80 MG PO SCH ×2 (21:34→23:30)
[2018-02-11] MEDS: Vitamin THERAPEUTIC TAB PO SCH (07:42)
[2018-02-11] MEDS: LORazepam TAB(*) 1 MG PO PRN ×2 (07:44→20:34)
[2018-02-11] MEDS: Gabapentin CAP(*) 400 MG PO SCH ×3 (07:45→20:29)
[2018-02-11] MEDS: Divalproex DR TAB(*) 500 MG PO SCH (07:45)
[2018-02-11] MEDS: Haloperidol TAB* 5 MG PO PRN (07:46)
[2018-02-11] MEDS: Nicotine PATCH 14 MG/24 HR* PATCH TRANSDERM SCH (07:55)
[2018-02-11] MEDS ORDERED: [UNRECOGNIZED DRUG - OTHER] TOPICAL SCH (11:00)
--- NOTE | 2018-02-11 11:23 | PN ---
MHU: Group Therapy Note - Service Type Service Type: 18818 Group Psychotherapy - Cognitive Behavioral Therapy (CBT): Patient presents with high volume of speech that impresses as being coherent within the context of self-report, but is tangential and off topic in group context. Concerns regarding disorganization of thought are apparent.
[2018-02-11] MEDS ORDERED: Mouth Piece, Nicotine* 1 EACH CARTRIDGE ONE (14:01)
[2018-02-11] MEDS: Nicotine Inhaler* 10 MG AMP INH PRN (14:02)
[2018-02-11] MEDS: Permethrin 1% LOTION* 59 ML BTL TOPICAL ONE ×2 (14:02→16:08)
--- NOTE | 2018-02-11 15:58 | PN ---
Subjective - Subjective Date of Service: 02/11/18 Service Type: 98193 Hosp care 25 min moderate complexity Subjective: Sreedhar is pleasant to talk to, but she is also labile of mood and somewhat irritable. it is unclear how she feels about being back in the hospital: confused, guilty, frustrated, regretful, relieved. She is slightly suspicious and feels like there is nothing good about being here in the hospital. We do go over her medications and make some adjustments for her, such as adding probiotics, Colace, PRN Ativan (for anxiety > 4), eliminating the nicotine patch , and increasing gabapentin to BID. Objective - Appearance Appearance: Well Developed/Nourished, Healthy Appearing Dysmorphic Features: No Hygiene: Normal Grooming: Well Kept - Behavior Psychomotor Activities: Normal Exhibits Abnormal Movement: No - Attitude and Relatedness Attitude and Relatedness: Needy Eye Contact: Good - Speech Quality: Unpressured Latencies: Normal Quantity: Copious - Mood Patient's Decription of Mood: "Terrible" - Affect Observed Affect: Tense Affect Consistent with: Dysphoria - Thought Process Patient's Thought Process: Coherent, Circumstantial Thought Content: Yes Paranoid Ideation, No Passive Wish, No Suicidal Planning, No Homicidal Ideation - Sensorium Experiencing Hallucinations: No, Sensorium is Clear Type of Hallucinations: Visual: No, Auditory: No, Command: No - Level of Consciousness Level of Consciousness: Alert Orientation: Yes Intact, Yes Orientated to Time, Yes Orientated to Place, Yes Orientated to Person - Impulse Control Impulse Control: Impaired - Insight and Judgement Insight and Judgement: Fair - Group Participation Particating in Group Activities: Yes - Medication Management Medication Management Adherence: Yes - Additional Observations Comments: Sreedhar appears to be well groomed, although she reports that she may have head lice. Permethrin was ordered. Sreedhar acknowledges that she can control her emotions much of the time and that the tears are a betrayal of her usual appearance of being calm and together. It seems, however, that while Sreedhar asserts that these recent problems are a result of "letting people in," the absence of medications is a more likely culprit. Assessment - Assessment Merits Inpatient Hospitalization: For Immediate Safety Clinical Impression: 22-y-o woman with a history of psychosis and mood disorder who comes to the hospital in a disorganized state. At this time, Sreedhar's state of mind is improving. Although she remains sad and somewhat confused about how she feels about being in the hospital, she is able to pull herself together. It is evident that there is family trauma that is affecting her. She would like to see her mother, who is concerned that she will be coming to see her too soon. Plan - Plan Treatment Plan: Name: SREEDHAR MUKHERJEE Birthdate: 1995 [id number] Continued Medication Management: Continue Outpt Medication Medications: Current Medications Acetaminophen (Tylenol Tab*) 650 mg PO Q4H PRN PRN Reason: PAIN or TEMP > 101 F Al Hydrox/Mg Hydrox/Simethicone (Maalox Plus*) 30 ml PO Q4H PRN PRN Reason: INDIGESTION Device (Nix Comb) 1 each TOPICAL . DIRECTED [facility] Divalproex Sodium (Depakote Dr Tab(*)) 500 mg PO DAILY [facility] Last Admin: 02/11/18 07:45 Dose: 500 mg Docusate Sodium (Colace Cap*) 100 mg PO DAILY [facility] Gabapentin (Neurontin Cap(*)) 800 mg PO BID [facility] Haloperidol (Haldol Tab*) 5 mg PO Q6H PRN PRN Reason: AGITATION Last Admin: 02/11/18 07:46 Dose: 5 mg Lactobacillus Rhamnosus (Lactobacillus Acidophilus*) 1 tab PO BID [facility] Lorazepam (Ativan Tab(*)) 1 mg PO Q6H PRN PRN Reason: ANXIETY Multivitamins (Theragran Tab*) 1 tab PO DAILY [facility] Last Admin: 02/11/18 07:42 Dose: 1 tab Nicotine (Nicotine Inhaler*) 10 mg INH Q2H PRN PRN Reason: CRAVINGS Last Admin: 02/11/18 14:02 Dose: 10 mg Nicotine Polacrilex (Nicotine Gum*) 2 mg PO Q2H PRN PRN Reason: CRAVINGS Ziprasidone (Geodon Cap*) 80 mg PO BEDTIME [facility] Last Admin: 02/10/18 23:30 Dose: 80 mg Ziprasidone (Geodon (Generic) *) 40 mg PO BEDTIME [facility] Last Admin: 02/10/18 23:30 Dose: 40 mg - Discharge Plan Discharge Plan: Outpatient Follow Up Outpatient Program: [facility] Additional Comments: Ihotu will remain on the BSU and improve in the stability of mood and behavior. She feels in control of her medications and when she begins using them appropriately, we can begin considering discharge.
[2018-02-11] MEDS: Lactobacillus Acidophilus* 1 TAB PO SCH (20:29)
[2018-02-11] MEDS: Ziprasidone * 20 MG CAP (generic Geodon) PO SCH (20:30)
[2018-02-11] MEDS: Ziprasidone CAP* 80 MG PO SCH (20:31)
[2018-02-12] MEDS: Gabapentin CAP(*) 400 MG PO SCH ×2 (08:15→21:35)
[2018-02-12] MEDS: Docusate CAP* 100 MG PO SCH (08:17)
[2018-02-12] MEDS: Lactobacillus Acidophilus* 1 TAB PO SCH ×2 (08:17→21:37)
[2018-02-12] MEDS: Vitamin THERAPEUTIC TAB PO SCH (08:17)
[2018-02-12] MEDS: LORazepam TAB(*) 1 MG PO PRN ×3 (08:20→21:40)
[2018-02-12] MEDS: Acetaminophen TAB* 325 MG PO PRN ×2 (08:20→12:30)
--- NOTE | 2018-02-12 11:29 | PN ---
MHU: Group Therapy Note - Service Type Service Type: [id number] Group Psychotherapy - Cognitive Behavioral Group Therapy ( CBT):Patient was attentive and participatory in CBT programming this morning, and remained in good behavioral control. Patient expressed positive insights regarding relevant treatment interventions and goals.
[2018-02-12] MEDS: Divalproex DR TAB(*) 250 MG PO SCH ×2 (12:28→21:34)
--- NOTE | 2018-02-12 14:17 | PN ---
Subjective - Subjective Date of Service: 02/12/18 Service Type: [id number] Hosp care 25 min moderate complexity Subjective: Met with Sreedhar several times today. We discussed possible drug use (no urinalysis/drug screen was completed), which she denies. We talked more specifically about what led to her admission which she asserts is too much stress. I suggested that she might want to increase some medications, but she is not ready to discuss that yet. She states once per year in the hospital is okay with her. Objective - Appearance Appearance: Well Developed/Nourished Dysmorphic Features: No Hygiene: Normal Grooming: Fairly Well Kept - Behavior Psychomotor Activities: Normal Exhibits Abnormal Movement: No - Attitude and Relatedness Attitude and Relatedness: Needy Eye Contact: Good - Speech Quality: Unpressured Latencies: Normal Quantity: Appropriate - Mood Patient's Decription of Mood: "Okay" - Affect Observed Affect: Expansive Affect Consistent with: Euthymia - Thought Process Patient's Thought Process: Goal Directed Thought Content: No Passive Wish, No Suicidal Planning, No Homicidal Ideation, No Paranoid Ideation - Sensorium Experiencing Hallucinations: No, Sensorium is Clear Type of Hallucinations: Visual: No, Auditory: No, Command: No - Level of Consciousness Level of Consciousness: Agitated Orientation: Yes Intact, Yes Orientated to Time, Yes Orientated to Place, Yes Orientated to Person - Impulse Control Impulse Control: Impaired - Insight and Judgement Insight and Judgement: Fair - Group Participation Particating in Group Activities: Yes - Medication Management Medication Management Adherence: Yes - Additional Observations Comments: Sreedhar appears to be well groomed, although she reports that she may have head lice. Permethrin was ordered. Sreedhar acknowledges that she can control her emotions much of the time and that the tears are a betrayal of her usual appearance of being calm and together. It seems, however, that while Sreedhar asserts that these recent problems are a result of "letting people in," the presence of enormous stressors is likely the problem. Assessment - Assessment Merits Inpatient Hospitalization: For Stabilization Clinical Impression: 22-y-o woman with a history of psychosis and mood disorder who comes to the hospital in a disorganized state. At this time, Sreedhar's state of mind is improving. Although she remains sad and somewhat confused about how she feels about being in the hospital, she is able to pull herself together. It is evident that there is family trauma that is affecting her. She would like to see her mother, who is concerned that she will be coming to see her too soon. Plan - Plan Treatment Plan: Name: SREEDHAR MUKHERJEE Birthdate: 1995 [id number] Medications: Current Medications Acetaminophen (Tylenol Tab*) 650 mg PO Q4H PRN PRN Reason: PAIN or TEMP > 101 F Last Admin: 02/12/18 12:30 Dose: 325 mg Al Hydrox/Mg Hydrox/Simethicone (Maalox Plus*) 30 ml PO Q4H PRN PRN Reason: INDIGESTION Device (Nix Comb) 1 each TOPICAL . DIRECTED [facility] Divalproex Sodium (Depakote Dr Tab(*)) 250 mg PO BID [facility] Last Admin: 02/12/18 12:28 Dose: 250 mg Divalproex Sodium (Depakote Dr Tab(*)) 500 mg PO BEDTIME [facility] Docusate Sodium (Colace Cap*) 100 mg PO DAILY [facility] Last Admin: 02/12/18 08:17 Dose: 100 mg Gabapentin (Neurontin Cap(*)) 800 mg PO BID [facility] Last Admin: 02/12/18 08:15 Dose: 800 mg Haloperidol (Haldol Tab*) 5 mg PO Q6H PRN PRN Reason: AGITATION Last Admin: 02/11/18 07:46 Dose: 5 mg Lactobacillus Rhamnosus (Lactobacillus Acidophilus*) 1 tab PO BID [facility] Last Admin: 02/12/18 08:17 Dose: 1 tab Lorazepam (Ativan Tab(*)) 1 mg PO Q6H PRN PRN Reason: ANXIETY Last Admin: 02/12/18 08:20 Dose: 1 mg Multivitamins (Theragran Tab*) 1 tab PO DAILY [facility] Last Admin: 02/12/18 08:17 Dose: 1 tab Nicotine (Nicotine Inhaler*) 10 mg INH Q2H PRN PRN Reason: CRAVINGS Last Admin: 02/11/18 14:02 Dose: 10 mg Nicotine Polacrilex (Nicotine Gum*) 2 mg PO Q2H PRN PRN Reason: CRAVINGS Ziprasidone (Geodon Cap*) 80 mg PO BEDTIME [facility] Last Admin: 02/11/18 20:31 Dose: 80 mg Ziprasidone (Geodon (Generic) *) 40 mg PO BEDTIME [facility] Last Admin: 02/11/18 20:30 Dose: 40 mg - Discharge Plan Additional Comments: Ihotu will remain on the BSU and improve in the stability of mood and behavior. She feels in control of her medications and when she begins using them appropriately, we can begin considering discharge. She continues to stabilize. We will likely discuss discharge for .
[2018-02-12] MEDS: Nicotine GUM* 2 MG PO PRN (16:19)
[2018-02-12] MEDS ORDERED: Divalproex DR TAB(*) 500 MG PO SCH (21:00)
[2018-02-12] MEDS: Ziprasidone CAP* 80 MG PO SCH (21:38)
[2018-02-12] MEDS: Ziprasidone * 20 MG CAP (generic Geodon) PO SCH (21:38)
[2018-02-13] MEDS: Acetaminophen TAB* 325 MG PO PRN (07:26)
[2018-02-13] MEDS: Gabapentin CAP(*) 400 MG PO SCH ×2 (09:25→20:14)
[2018-02-13] MEDS: Docusate CAP* 100 MG PO SCH (09:27)
[2018-02-13] MEDS: Vitamin THERAPEUTIC TAB PO SCH (09:30)
[2018-02-13] MEDS: Lactobacillus Acidophilus* 1 TAB PO SCH ×2 (09:31→20:13)
[2018-02-13] MEDS: Divalproex DR TAB(*) 250 MG PO SCH ×2 (11:51→20:14)
--- NOTE | 2018-02-13 14:50 | PN ---
Subjective - Subjective Date of Service: 02/13/18 Service Type: 47099 Hosp care 25 min moderate complexity Subjective: Sreedhar again wants to discuss a variety of topics. We discuss luis and she states, "Do you not want me to enjoy my time here? I can act miserable." After much talking and negotiating, Sreedhar agreed to a temporary increase in Depakote to 750 mg from 500 mg, all at bedtime. At this point she declines to take it after her discharge. This will be an ongoing discussion. Sreedhar complains of a sore knee and requests a PT consult, which is entered. Sreedhar continues to discuss her concern that she has ADHD. Talking about the differences between ADHD and bipolar disorder was not helpful as she could not keep on topic. Objective - Appearance Appearance: Well Developed/Nourished Dysmorphic Features: No Hygiene: Normal Grooming: Fairly Well Kept - Behavior Psychomotor Activities: Normal Exhibits Abnormal Movement: No - Attitude and Relatedness Attitude and Relatedness: Superficially Cooperative Eye Contact: Good - Speech Quality: Pressured Latencies: Normal Quantity: Copious - Mood Patient's Decription of Mood: "Good" - Affect Observed Affect: Expansive Affect Consistent with: Euthymia - Thought Process Patient's Thought Process: Coherent, Loose Associations Thought Content: No Passive Wish, No Suicidal Planning, No Homicidal Ideation, No Paranoid Ideation - Sensorium Type of Hallucinations: Visual: No, Auditory: No, Command: No - Level of Consciousness Level of Consciousness: Alert Orientation: Yes Intact, Yes Orientated to Time, Yes Orientated to Place, Yes Orientated to Person - Impulse Control Impulse Control: Tenuous - Insight and Judgement Insight and Judgement: Impaired - Group Participation Particating in Group Activities: Yes - Medication Management Medication Management Adherence: Yes - Additional Observations Comments: Sreedhar appears to be well groomed, although she reports that she may have head lice. Permethrin was ordered. Sreedhar acknowledges that she can control her emotions much of the time and that the tears are a betrayal of her usual appearance of being calm and together. It seems, however, that while Sreedhar asserts that these recent problems are a result of "letting people in," the presence of enormous stressors is likely the problem. Additional Depakote may help with the luis that is continuing. Strong eye contact observed between us. She also got up close to me to watch my mouth move so she could be certain of what I was saying. Assessment - Assessment Merits Inpatient Hospitalization: For Immediate Safety, For Stabilization Inpatient DSM-V Dx: F31.2 Clinical Impression: 22-y-o woman with a history of psychosis and mood disorder who comes to the hospital in a disorganized state. At this time, Trells state of mind is improving. Although she remains sad and somewhat confused about how she feels about being in the hospital, she is able to pull herself together. It is evident that there is family trauma that is affecting her. Sreedhar is not able to hold herself together as well today as she was yesterday. Feedback from other staff is that she remains somewhat disorganized. She is pleasant and funny. She is relying a lot on her journal to keep track of her thoughts. Plan - Plan Treatment Plan: Name: SREEDHAR MUKHERJEE Birthdate: 1995 [id number] Medications: Current Medications Acetaminophen (Tylenol Tab*) 650 mg PO Q4H PRN PRN Reason: PAIN or TEMP > 101 F Last Admin: 02/13/18 07:26 Dose: 650 mg Al Hydrox/Mg Hydrox/Simethicone (Maalox Plus*) 30 ml PO Q4H PRN PRN Reason: INDIGESTION Device (Nix Comb) 1 each TOPICAL . DIRECTED [facility] Divalproex Sodium (Depakote Dr Tab(*)) 500 mg PO BEDTIME [facility] Divalproex Sodium (Depakote Dr Tab(*)) 250 mg PO BEDTIME [facility] Docusate Sodium (Colace Cap*) 100 mg PO DAILY [facility] Last Admin: 02/13/18 09:27 Dose: 100 mg Gabapentin (Neurontin Cap(*)) 800 mg PO BID [facility] Last Admin: 02/13/18 09:25 Dose: 800 mg Haloperidol (Haldol Tab*) 5 mg PO Q6H PRN PRN Reason: AGITATION Last Admin: 02/11/18 07:46 Dose: 5 mg Lactobacillus Rhamnosus (Lactobacillus Acidophilus*) 1 tab PO BID [facility] Last Admin: 02/13/18 09:31 Dose: 1 tab Lorazepam (Ativan Tab(*)) 1 mg PO Q6H PRN PRN Reason: ANXIETY Last Admin: 02/12/18 21:40 Dose: 1 mg Multivitamins (Theragran Tab*) 1 tab PO DAILY [facility] Last Admin: 02/13/18 09:30 Dose: Not Given Nicotine (Nicotine Inhaler*) 10 mg INH Q2H PRN PRN Reason: CRAVINGS Last Admin: 02/11/18 14:02 Dose: 10 mg Nicotine Polacrilex (Nicotine Gum*) 2 mg PO Q2H PRN PRN Reason: CRAVINGS Last Admin: 02/12/18 16:19 Dose: 2 mg Ziprasidone (Geodon Cap*) 80 mg PO BEDTIME [facility] Last Admin: 02/12/18 21:38 Dose: 80 mg Ziprasidone (Geodon (Generic) *) 40 mg PO BEDTIME [facility] Last Admin: 02/12/18 21:38 Dose: 40 mg - Discharge Plan Discharge Plan: Outpatient Follow Up Outpatient Program: [facility] Additional Comments: Ihotu will remain on the BSU and improve in the stability of mood and behavior. She feels in control of her medications and when she begins using them appropriately, we can begin considering discharge. She continues to stabilize. We will likely discuss discharge for next week as her apparent stabilization when I met with her was an aberrant finding in that she was not so organized with others who spoke with her for longer and about a wider range of topics.
[2018-02-13] MEDS: Nicotine Inhaler* 10 MG AMP INH PRN ×2 (18:26→21:19)
[2018-02-13] MEDS: Nicotine GUM* 2 MG PO PRN ×2 (18:26→21:19)
[2018-02-13] MEDS: Divalproex DR TAB(*) 500 MG PO SCH (20:13)
[2018-02-13] MEDS: Ziprasidone * 20 MG CAP (generic Geodon) PO SCH (20:15)
[2018-02-13] MEDS: Ziprasidone CAP* 80 MG PO SCH (20:15)
[2018-02-14] MEDS: LORazepam TAB(*) 1 MG PO PRN ×2 (04:07→12:59)
[2018-02-14] MEDS: Gabapentin CAP(*) 400 MG PO SCH ×2 (08:58→20:20)
[2018-02-14] MEDS: Lactobacillus Acidophilus* 1 TAB PO SCH ×2 (08:58→20:20)
[2018-02-14] MEDS: Docusate CAP* 100 MG PO SCH (08:59)
[2018-02-14] MEDS: Vitamin THERAPEUTIC TAB PO SCH (08:59)
--- NOTE | 2018-02-14 11:27 | PN ---
MHU: Group Therapy Note - Service Type Service Type: [id number] Group Psychotherapy - Cognitive Behavioral Group Therapy ( CBT):Patient was attentive and participatory in CBT programming this morning, and remained in good behavioral control. Patient expressed positive insights regarding relevant treatment interventions and goals.
[2018-02-14] MEDS: Nicotine Inhaler* 10 MG AMP INH PRN (12:59)
[2018-02-14] MEDS: Nicotine GUM* 2 MG PO PRN (12:59)
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
[2018-02-14] MEDS: Ziprasidone * 20 MG CAP (generic Geodon) PO SCH (20:20)
[2018-02-14] MEDS: Ziprasidone CAP* 80 MG PO SCH (20:20)
[2018-02-14] MEDS: Divalproex DR TAB(*) 500 MG PO SCH (20:20)
[2018-02-14] MEDS: Divalproex DR TAB(*) 250 MG PO SCH (21:06)
[2018-02-15] MEDS: Gabapentin CAP(*) 400 MG PO SCH ×2 (09:10→20:37)
[2018-02-15] MEDS: Vitamin THERAPEUTIC TAB PO SCH (09:11)
[2018-02-15] MEDS: Lactobacillus Acidophilus* 1 TAB PO SCH ×3 (09:11→21:58)
[2018-02-15] MEDS: Docusate CAP* 100 MG PO SCH (09:11)
[2018-02-15] MEDS: Acetaminophen TAB* 325 MG PO PRN (09:16)
[2018-02-15] MEDS ORDERED: LORazepam TAB(*) 1 MG PO PRN (14:57)
[2018-02-15] MEDS: Divalproex DR TAB(*) 500 MG PO SCH ×2 (20:36→21:40)
[2018-02-15] MEDS: Divalproex DR TAB(*) 250 MG PO SCH ×2 (20:37→21:40)
[2018-02-15] MEDS: OLANzapine TAB*ODT* 10 MG TAB PO SCH ×2 (20:39→21:40)
--- NOTE | 2018-02-15 21:06 | PN ---
Subjective - Subjective Date of Service: 02/15/18 Service Type: [id number] Hosp care 35 min high complexity Subjective: Sreedhar is currently distinctly psychotic. It is unclear why she has decompensated further, although information has been garnered that she is quite adept at cheeking her medications. In addition, despite her assertion that she did not take illicit drugs before being admitted, she has refused to supply a urine sample. Today she has been making bizarre, often irrelevant statements, and has long latencies followed by unhelpful, obstructionist statements. Objective - Appearance Appearance: Well Developed/Nourished Dysmorphic Features: No Hygiene: Normal Grooming: Fairly Well Kept - Behavior Psychomotor Activities: Normal Exhibits Abnormal Movement: Yes - Attitude and Relatedness Attitude and Relatedness: Psychotically Related Eye Contact: Good - Speech Quality: Unpressured Latencies: Long Quantity: Terse - Mood Patient's Decription of Mood: "Terrible" - Affect Observed Affect: Tense Affect Consistent with: Dysphoria - Thought Process Patient's Thought Process: Incoherent, Disorganized, Loose Associations, Tangential Thought Content: No Passive Wish, No Suicidal Planning, No Homicidal Ideation, No Paranoid Ideation - Sensorium Experiencing Hallucinations: No, Sensorium is Clear Type of Hallucinations: Visual: No, Auditory: No, Command: No - Level of Consciousness Level of Consciousness: Agitated Orientation: Yes Intact, Yes Orientated to Time, Yes Orientated to Place, Yes Orientated to Person - Impulse Control Impulse Control: Impaired - Insight and Judgement Insight and Judgement: Poor - Group Participation Particating in Group Activities: No - Medication Management Medication Management Adherence: No - Additional Observations Comments: Sreedhar appears to be well groomed. Strong eye contact observed. Her affect is intense. She appears to have a tremor in her lower lip which I initially interpreted as emotion, but at this time its origin is unclear. Assessment - Assessment Merits Inpatient Hospitalization: For Immediate Safety Inpatient DSM-V Dx: F31.2 Clinical Impression: 22-y-o woman with a history of psychosis and mood disorder who comes to the hospital in a disorganized state. At this time, Trells state of mind is not improving. She has, in fact, decompensated significantly. She had been writing down items that were important to remember, yet she has not referenced that notebook and remains accusatory and defiant despite her own previously recorded notes. When I spoke to her mother, it became clear that Sreedhar is known to be excellent at cheeking medications. I do not anticipate that the current regimen of medications will be sufficient. Plan - Plan Treatment Plan: Name: SREEDHAR MUKHERJEE Birthdate: 1995 [id number] Continued Medication Management: Different Medication Medications: Current Medications Acetaminophen (Tylenol Tab*) 650 mg PO Q4H PRN PRN Reason: PAIN or TEMP > 101 F Last Admin: 02/15/18 09:16 Dose: 650 mg Al Hydrox/Mg Hydrox/Simethicone (Maalox Plus*) 30 ml PO Q4H PRN PRN Reason: INDIGESTION Device (Nix Comb) 1 each TOPICAL . DIRECTED [facility] Diphenhydramine HCl (Benadryl Po*) 50 mg PO Q6H PRN PRN Reason: AGITATION Divalproex Sodium (Depakote Dr Tab(*)) 500 mg PO BEDTIME [facility] Last Admin: 02/15/18 20:36 Dose: Not Given Divalproex Sodium (Depakote Dr Tab(*)) 250 mg PO BEDTIME [facility] Last Admin: 02/15/18 20:37 Dose: Not Given Docusate Sodium (Colace Cap*) 100 mg PO DAILY [facility] Last Admin: 02/15/18 09:11 Dose: 100 mg Gabapentin (Neurontin Cap(*)) 800 mg PO BID [facility] Last Admin: 02/15/18 20:37 Dose: 800 mg Haloperidol (Haldol Tab*) 5 mg PO Q6H PRN PRN Reason: AGITATION Last Admin: 02/11/18 07:46 Dose: 5 mg Lactobacillus Rhamnosus (Lactobacillus Acidophilus*) 1 tab PO BID [facility] Last Admin: 02/15/18 20:39 Dose: Not Given Lorazepam (Ativan Tab(*)) 2 mg PO Q6H PRN PRN Reason: AGITATION Multivitamins (Theragran Tab*) 1 tab PO DAILY [facility] Last Admin: 02/15/18 09:11 Dose: Not Given Nicotine (Nicotine Inhaler*) 10 mg INH Q2H PRN PRN Reason: CRAVINGS Last Admin: 02/14/18 12:59 Dose: 10 mg Nicotine Polacrilex (Nicotine Gum*) 2 mg PO Q2H PRN PRN Reason: CRAVINGS Last Admin: 02/14/18 12:59 Dose: 2 mg Olanzapine (Zyprexa * Tab Odt) 5 mg PO DAILY [facility] Olanzapine (Zyprexa *Odt*) 10 mg PO BEDTIME [facility] Last Admin: 02/15/18 20:39 Dose: Not Given - Discharge Plan Discharge Plan: Inpatient Hospitalization Additional Comments: Sreedhar will remain on the BSU and improve in the stability of mood and behavior. Her apparent stabilization when I met with her earlier in the week was an aberrant finding in that she was not so organized with others who spoke with her for longer and about a wider range of topics. Today she is not able to keep her thoughts together at all. She is bizarre and hostile. Her medications will be changed to Zyprexa Zydis both at bedtime and in the morning. Depakote will remain at 750 at bedtime. Continued effort to encourage Sreedhar to take her medications will be necessary.
[2018-02-15] MEDS: LORazepam TAB(*) 1 MG PO PRN (21:39)
[2018-02-15] MEDS: diPHENhydraMINE PO* 50 MG PO PRN (21:40)
[2018-02-15] MEDS: Haloperidol TAB* 5 MG PO PRN (21:40)
[2018-02-16] MEDS: Divalproex DR TAB(*) 500 MG PO SCH ×2 (00:21→23:38)
[2018-02-16] MEDS: OLANzapine TAB*ODT* 10 MG TAB PO SCH ×2 (00:22→23:38)
[2018-02-16] MEDS: OLANzapine TAB*ODT* 5 MG PO SCH (11:00)
[2018-02-16] MEDS: Docusate CAP* 100 MG PO SCH (14:11)
[2018-02-16] MEDS: Gabapentin CAP(*) 400 MG PO SCH ×2 (14:11→23:38)
[2018-02-16] MEDS: Lactobacillus Acidophilus* 1 TAB PO SCH ×2 (14:12→23:38)
[2018-02-16] MEDS: Vitamin THERAPEUTIC TAB PO SCH (14:12)
[2018-02-16] MEDS ORDERED: Ziprasidone IM INJ* 20 MG/ML VIAL IM ONE (17:10)
[2018-02-16] MEDS ORDERED: Ziprasidone IM INJ* 20 MG/ML VIAL ONE (17:12)
--- NOTE | 2018-02-16 21:29 | PN ---
Subjective - Subjective Date of Service: 02/16/18 Service Type: [id number] Hosp care 15 min low complexity Subjective: Sreedhar has been very difficult to manage. First of all she spet all her meds and showing tentrum during meals. Threw the food tray on the ground thd picked up from the floor to eat. Was walking too close to others, staring intensely at others from too close range and making bizarre statements such as " why did you do this between me and my mom". Objective - Appearance Appearance: Healthy Appearing Dysmorphic Features: No Hygiene: Mal-odorous Grooming: Disheveled - Behavior Psychomotor Activities: Abnormal-Increased - Attitude and Relatedness Attitude and Relatedness: Psychotically Related Eye Contact: Good - Speech Quality: Unpressured Latencies: Long Quantity: Terse - Mood Patient's Decription of Mood: "Upset" - Affect Observed Affect: Tense Affect Consistent with: Dysphoria - Thought Process Patient's Thought Process: Coherent, Disorganized, Loose Associations, Tangential Thought Content: No Passive Wish, No Suicidal Planning, No Homicidal Ideation, No Paranoid Ideation - Sensorium Experiencing Hallucinations: No, Sensorium is Clear - Level of Consciousness Level of Consciousness: Alert Orientation: No Intact, No Orientated to Time, No Orientated to Place, No Orientated to Person - Impulse Control Impulse Control: Impaired - Insight and Judgement Insight and Judgement: Impaired - Group Participation Particating in Group Activities: No - Medication Management Medication Management Adherence: No Assessment - Assessment Merits Inpatient Hospitalization: For Immediate Safety, For Stabilization Inpatient DSM-V Dx: F31.2 Clinical Impression: Still grossly psychotic and unsafe for discharge. Plan - Plan Treatment Plan: Name: SREEDHAR MUKHERJEE Birthdate: 1995 [id number] Continued Medication Management: Continue Outpt Medication Medications: Current Medications Acetaminophen (Tylenol Tab*) 650 mg PO Q4H PRN PRN Reason: PAIN or TEMP > 101 F Last Admin: 02/15/18 09:16 Dose: 650 mg Al Hydrox/Mg Hydrox/Simethicone (Maalox Plus*) 30 ml PO Q4H PRN PRN Reason: INDIGESTION Device (Nix Comb) 1 each TOPICAL . DIRECTED [facility] Diphenhydramine HCl (Benadryl Po*) 50 mg PO Q6H PRN PRN Reason: AGITATION Divalproex Sodium (Depakote Dr Tab(*)) 500 mg PO BEDTIME [facility] Last Admin: 02/16/18 00:21 Dose: Not Given Divalproex Sodium (Depakote Dr Tab(*)) 250 mg PO BEDTIME [facility] Last Admin: 02/15/18 21:40 Dose: 250 mg Docusate Sodium (Colace Cap*) 100 mg PO DAILY [facility] Last Admin: 02/16/18 14:11 Dose: Not Given Gabapentin (Neurontin Cap(*)) 800 mg PO BID [facility] Last Admin: 02/16/18 14:11 Dose: Not Given Haloperidol (Haldol Tab*) 5 mg PO Q6H PRN PRN Reason: AGITATION Last Admin: 02/11/18 07:46 Dose: 5 mg Lactobacillus Rhamnosus (Lactobacillus Acidophilus*) 1 tab PO BID [facility] Last Admin: 02/16/18 14:12 Dose: Not Given Lorazepam (Ativan Tab(*)) 2 mg PO Q6H PRN PRN Reason: AGITATION Multivitamins (Theragran Tab*) 1 tab PO DAILY [facility] Last Admin: 02/16/18 14:12 Dose: Not Given Nicotine (Nicotine Inhaler*) 10 mg INH Q2H PRN PRN Reason: CRAVINGS Last Admin: 02/14/18 12:59 Dose: 10 mg Nicotine Polacrilex (Nicotine Gum*) 2 mg PO Q2H PRN PRN Reason: CRAVINGS Last Admin: 02/14/18 12:59 Dose: 2 mg Olanzapine (Zyprexa * Tab Odt) 5 mg PO DAILY [facility] Last Admin: 02/16/18 11:00 Dose: 5 mg Olanzapine (Zyprexa *Odt*) 10 mg PO BEDTIME [facility] Last Admin: 02/16/18 00:22 Dose: Not Given - Discharge Plan Discharge Plan: Consider Longer Term Tx [facility]patient [facility]
[2018-02-16] MEDS: Divalproex DR TAB(*) 250 MG PO SCH (23:38)
[2018-02-17] MEDS: Nicotine Inhaler* 10 MG AMP INH PRN (08:38)
[2018-02-17] MEDS: Gabapentin CAP(*) 400 MG PO SCH ×2 (08:46→20:24)
[2018-02-17] MEDS: Docusate CAP* 100 MG PO SCH (08:46)
[2018-02-17] MEDS: OLANzapine TAB*ODT* 5 MG PO SCH (08:46)
[2018-02-17] MEDS: Vitamin THERAPEUTIC TAB PO SCH (08:47)
[2018-02-17] MEDS: Lactobacillus Acidophilus* 1 TAB PO SCH ×2 (10:24→20:24)
[2018-02-17] MEDS: LORazepam TAB(*) 1 MG PO PRN (13:21)
[2018-02-17] MEDS: Divalproex DR TAB(*) 500 MG PO SCH (20:23)
[2018-02-17] MEDS: Divalproex DR TAB(*) 250 MG PO SCH (20:55)
[2018-02-17] MEDS: OLANzapine TAB*ODT* 10 MG TAB PO SCH (20:55)
[2018-02-18] MEDS: Gabapentin CAP(*) 400 MG PO SCH ×2 (08:18→21:11)
[2018-02-18] MEDS: Docusate CAP* 100 MG PO SCH (08:18)
[2018-02-18] MEDS: OLANzapine TAB*ODT* 5 MG PO SCH (08:18)
[2018-02-18] MEDS: Vitamin THERAPEUTIC TAB PO SCH (08:18)
[2018-02-18] MEDS: Lactobacillus Acidophilus* 1 TAB PO SCH ×2 (08:19→21:23)
[2018-02-18] MEDS: Acetaminophen TAB* 325 MG PO PRN ×2 (14:04→21:17)
[2018-02-18] MEDS: Nicotine GUM* 2 MG PO PRN (14:04)
[2018-02-18] MEDS: Nicotine Inhaler* 10 MG AMP INH PRN (14:04)
[2018-02-18] MEDS: LORazepam TAB(*) 1 MG PO PRN ×2 (14:05→21:18)
--- NOTE | 2018-02-18 16:22 | PN ---
Subjective - Subjective Date of Service: 02/18/18 Service Type: [id number] Hosp care 25 min moderate complexity Subjective: Ihotu has not improved. Her intense stare continues, although she asserts "that' s my face." She was heard discussing this with other patients who gave her the feedback that the stare was too intense and that she would benefit from reducing the intensity. During our first conversation, with Ira العلي, she asked me to leave, which I did. In our second conversation, when we spoke alone , she asserted that what is being observed is a cultural divide and her personality. She feels like she is being "punished for [her] personality." She stated her first six days were her trying to be pleasant and cordial and that the remaining days do not fall into the same category. While this may or may not be true, it does not explain all of her behavior. She asked to stand during the conversation and then walked down the nelson and back and then sat down. We were interrupted for a phone call. It took a full 30 seconds for her to decide what to do about it and then she changed her mind. She would periodically say the word, "Blunt." Eventually I stopped the meeting and explained that if she was not willing to take medications as prescribed she would be taken to court for treatment over objection. She said, "I've done court before." Objective - Appearance Appearance: Well Developed/Nourished Dysmorphic Features: No Hygiene: Normal Grooming: Fairly Well Kept - Behavior Psychomotor Activities: Normal Exhibits Abnormal Movement: No - Attitude and Relatedness Attitude and Relatedness: Superficially Cooperative Eye Contact: Good - Speech Quality: Unpressured Latencies: Long Quantity: Terse - Mood Patient's Decription of Mood: "Fine" - Affect Observed Affect: Constricted Affect Consistent with: Dysphoria - Thought Process Patient's Thought Process: Tangential Thought Content: No Passive Wish, No Suicidal Planning, No Homicidal Ideation, No Paranoid Ideation - Sensorium Type of Hallucinations: Visual: No, Auditory: No, Command: No - Level of Consciousness Level of Consciousness: Agitated Orientation: Yes Intact, Yes Orientated to Time, Yes Orientated to Place, Yes Orientated to Person - Impulse Control Impulse Control: Tenuous - Insight and Judgement Insight and Judgement: Poor - Group Participation Particating in Group Activities: Yes - Medication Management Medication Management Adherence: Partial - Additional Observations Comments: Sreedhar appears to be well groomed. Strong eye contact observed. Her affect is intense. She appears to have a tremor in her lower lip which I initially interpreted as emotion. There are latencies before each statement. All statements seem to be highly considered, but they do not seem to be universally relevant. Assessment - Assessment Merits Inpatient Hospitalization: For Immediate Safety Inpatient DSM-V Dx: F31.2 Clinical Impression: 22-y-o woman with a history of psychosis and mood disorder who comes to the hospital in a disorganized state. At this time, Trells state of mind is not improving. She has, in fact, decompensated significantly. When I spoke to her mother, it became clear that Sreedhar is known to be excellent at cheeking medications. An agreed-upon increase in Depakote was not successfully initiated. Addition of Zyprexa Zydis was not successful, as Sreedhar did not take it. Plan - Plan Treatment Plan: Name: SREEDHAR MUKHERJEE Birthdate: 1995 [id number] Continued Medication Management: Different Medication Medications: Current Medications Acetaminophen (Tylenol Tab*) 650 mg PO Q4H PRN PRN Reason: PAIN or TEMP > 101 F Last Admin: 02/18/18 14:04 Dose: 650 mg Al Hydrox/Mg Hydrox/Simethicone (Maalox Plus*) 30 ml PO Q4H PRN PRN Reason: INDIGESTION Device (Nix Comb) 1 each TOPICAL . DIRECTED [facility] Diphenhydramine HCl (Benadryl Po*) 50 mg PO Q6H PRN PRN Reason: AGITATION Divalproex Sodium (Depakote Dr Tab(*)) 500 mg PO BEDTIME [facility] Last Admin: 02/17/18 20:23 Dose: 500 mg Divalproex Sodium (Depakote Dr Tab(*)) 250 mg PO BEDTIME [facility] Last Admin: 02/17/18 20:55 Dose: 250 mg Docusate Sodium (Colace Cap*) 100 mg PO DAILY [facility] Last Admin: 02/18/18 08:18 Dose: 100 mg Gabapentin (Neurontin Cap(*)) 800 mg PO BID [facility] Last Admin: 02/18/18 08:18 Dose: 800 mg Haloperidol (Haldol Tab*) 5 mg PO Q6H PRN PRN Reason: AGITATION Last Admin: 02/11/18 07:46 Dose: 5 mg Lactobacillus Rhamnosus (Lactobacillus Acidophilus*) 1 tab PO BID [facility] Last Admin: 02/18/18 08:19 Dose: Not Given Lorazepam (Ativan Tab(*)) 2 mg PO Q6H PRN PRN Reason: AGITATION Last Admin: 02/18/18 14:05 Dose: 2 mg Multivitamins (Theragran Tab*) 1 tab PO DAILY [facility] Last Admin: 02/18/18 08:18 Dose: 1 tab Nicotine (Nicotine Inhaler*) 10 mg INH Q2H PRN PRN Reason: CRAVINGS Last Admin: 02/18/18 14:04 Dose: 10 mg Nicotine Polacrilex (Nicotine Gum*) 2 mg PO Q2H PRN PRN Reason: CRAVINGS Last Admin: 02/18/18 14:04 Dose: 2 mg Olanzapine (Zyprexa * Tab Odt) 5 mg PO DAILY [facility] Last Admin: 02/18/18 08:18 Dose: Not Given Olanzapine (Zyprexa *Odt*) 10 mg PO BEDTIME [facility] Last Admin: 02/17/18 20:55 Dose: 10 mg - Discharge Plan Additional Comments: Sreedhar will remain on the BSU and improve in the stability of mood and behavior. Her apparent stabilization when I met with her earlier in the week was an aberrant finding in that she was not so organized with others who spoke with her for longer and about a wider range of topics. Today she is not able to keep her thoughts together. She is bizarre and hostile. Her medications was changed to Zyprexa Zydis both at bedtime and in the morning. Depakote will remain at 750 at bedtime. Continued effort to encourage Sreedhar to take her medications has been attempted. Sreedhar's continued psychotic presentation will likely lead to treatment over objection.
[2018-02-18] MEDS: OLANzapine TAB*ODT* 10 MG TAB PO SCH (21:11)
[2018-02-18] MEDS: Divalproex DR TAB(*) 500 MG PO SCH (21:11)
[2018-02-18] MEDS: Divalproex DR TAB(*) 250 MG PO SCH (21:11)
[2018-02-18] MEDS: diPHENhydraMINE PO* 50 MG PO PRN (21:18)
[2018-02-19] MEDS: OLANzapine TAB*ODT* 5 MG PO SCH (08:40)
[2018-02-19] MEDS: Gabapentin CAP(*) 400 MG PO SCH ×2 (08:41→21:20)
[2018-02-19] MEDS: Docusate CAP* 100 MG PO SCH (08:41)
[2018-02-19] MEDS: Lactobacillus Acidophilus* 1 TAB PO SCH ×2 (08:42→21:22)
[2018-02-19] MEDS: Vitamin THERAPEUTIC TAB PO SCH (08:42)
[2018-02-19] MEDS: LORazepam TAB(*) 1 MG PO PRN (16:47)
[2018-02-19] MEDS: Acetaminophen TAB* 325 MG PO PRN (16:49)
[2018-02-19] MEDS: Nicotine Inhaler* 10 MG AMP INH PRN (16:51)
[2018-02-19] MEDS: Nicotine GUM* 2 MG PO PRN (16:52)
--- NOTE | 2018-02-19 18:57 | PN ---
Subjective - Subjective Date of Service: 02/19/18 Service Type: [id number] Hosp care 15 min low complexity Subjective: Sreedhar has moments of clear, well-directed conversation with me today. She asked appropriate questions. Long latencies remain which she explains by saying she likes to think about her answer before she gives it. When told that her answers don't always make sense, she stated, "Then they weren't meant for you." She remains bizarre at times and illogical at others. She was adherent to medication recommendations last night and yesterday morning. We will revisit her 30 minute/staff pass status tomorrow. Objective - Appearance Appearance: Well Developed/Nourished Dysmorphic Features: No Hygiene: Normal Grooming: Fairly Well Kept - Behavior Psychomotor Activities: Normal Exhibits Abnormal Movement: No - Attitude and Relatedness Attitude and Relatedness: Superficially Cooperative Eye Contact: Good - Speech Quality: Unpressured Latencies: Long Quantity: Terse - Mood Patient's Decription of Mood: "Fine" - Affect Observed Affect: Constricted Affect Consistent with: Dysphoria - Thought Process Patient's Thought Process: Disorganized, Loose Associations Thought Content: Yes Paranoid Ideation, No Passive Wish, No Suicidal Planning, No Homicidal Ideation - Sensorium Experiencing Hallucinations: No, Sensorium is Clear Type of Hallucinations: Visual: No, Auditory: No, Command: No - Level of Consciousness Level of Consciousness: Agitated Orientation: Yes Intact, Yes Orientated to Time, Yes Orientated to Place, Yes Orientated to Person - Impulse Control Impulse Control: Tenuous - Insight and Judgement Insight and Judgement: Impaired - Group Participation Particating in Group Activities: Yes - Medication Management Medication Management Adherence: Partial - Additional Observations Comments: Sreedhar appears to be well groomed. Strong eye contact observed. Her affect is intense. She appears to have a tremor in her lower lip which I initially interpreted as emotion. There are latencies before each statement. All statements seem to be highly considered, but they do not seem to be universally relevant. She is heard having happy interactions in the milieu with other patients and at times with staff members. The staff members report that she can have bizarre interactions: that she can be on-topic and then deviate. Assessment - Assessment Merits Inpatient Hospitalization: For Immediate Safety Inpatient DSM-V Dx: F31.2 Clinical Impression: 22-y-o woman with a history of psychosis and mood disorder who comes to the hospital in a disorganized state. At this time, Sreedhar's state of mind is not improving. She has, in fact, decompensated significantly. When I spoke to her mother, it became clear that Sreedhar is known to be excellent at cheeking medications. An agreed-upon increase in Depakote was not successfully initiated, although today Sreedhar has been adherent to medications that were ordered. Change in behavior was not observed. Plan - Plan Treatment Plan: Name: SREEDHAR MUKHERJEE Birthdate: 1995 [id number] Medications: Current Medications Acetaminophen (Tylenol Tab*) 325 mg PO Q6H PRN PRN Reason: PAIN OR TEMPERATURE Last Admin: 02/19/18 16:49 Dose: 325 mg Al Hydrox/Mg Hydrox/Simethicone (Maalox Plus*) 30 ml PO Q4H PRN PRN Reason: INDIGESTION Diphenhydramine HCl (Benadryl Po*) 50 mg PO Q6H PRN PRN Reason: AGITATION Last Admin: 02/18/18 21:18 Dose: 50 mg Divalproex Sodium (Depakote Dr Tab(*)) 500 mg PO BEDTIME [facility] Last Admin: 02/18/18 21:11 Dose: 500 mg Divalproex Sodium (Depakote Dr Tab(*)) 250 mg PO BEDTIME [facility] Last Admin: 02/18/18 21:11 Dose: 250 mg Docusate Sodium (Colace Cap*) 100 mg PO DAILY [facility] Last Admin: 02/19/18 08:41 Dose: 100 mg Gabapentin (Neurontin Cap(*)) 800 mg PO BID [facility] Last Admin: 02/19/18 08:41 Dose: 800 mg Haloperidol (Haldol Tab*) 5 mg PO Q6H PRN PRN Reason: AGITATION Last Admin: 02/11/18 07:46 Dose: 5 mg Lactobacillus Rhamnosus (Lactobacillus Acidophilus*) 1 tab PO BID [facility] Last Admin: 02/19/18 08:42 Dose: 1 tab Lorazepam (Ativan Tab(*)) 2 mg PO Q6H PRN PRN Reason: AGITATION Last Admin: 02/18/18 21:18 Dose: 1 mg Lorazepam (Ativan Tab(*)) 1 mg PO Q4H PRN PRN Reason: ANXIETY Last Admin: 02/19/18 16:47 Dose: 1 mg Multivitamins (Theragran Tab*) 1 tab PO DAILY [facility] Last Admin: 02/19/18 08:42 Dose: 1 tab Nicotine (Nicotine Inhaler*) 10 mg INH Q2H PRN PRN Reason: CRAVINGS Last Admin: 02/19/18 16:51 Dose: 10 mg Nicotine Polacrilex (Nicotine Gum*) 2 mg PO Q2H PRN PRN Reason: CRAVINGS Last Admin: 02/19/18 16:52 Dose: 2 mg Olanzapine (Zyprexa * Tab Odt) 5 mg PO DAILY [facility] Last Admin: 02/19/18 08:40 Dose: 5 mg Olanzapine (Zyprexa *Odt*) 10 mg PO BEDTIME [facility] Last Admin: 02/18/18 21:11 Dose: 10 mg - Discharge Plan Additional Comments: Sreedhar will remain on the BSU and improve in the stability of mood and behavior. Her apparent stabilization when I met with her earlier iwas an aberrant finding in that she was not so organized with others who spoke with her for longer and about a wider range of topics. Today she is not able to keep her thoughts together. She is bizarre and hostile. Her medication was changed to Zyprexa Zydis both at bedtime and in the morning. Depakote will remain at 750 at bedtime. Continued effort to encourage Sreedhar to take her medications has been attempted. Sreedhar's continued psychotic presentation will lead us to continued encouragement of medication adherence.
[2018-02-19] MEDS: Divalproex DR TAB(*) 500 MG PO SCH (21:20)
[2018-02-19] MEDS: Divalproex DR TAB(*) 250 MG PO SCH (21:20)
[2018-02-19] MEDS: OLANzapine TAB*ODT* 10 MG TAB PO SCH (21:21)
[2018-02-20] MEDS: diPHENhydraMINE PO* 50 MG PO PRN (03:06)
[2018-02-20] MEDS: LORazepam TAB(*) 1 MG PO PRN ×3 (05:08→17:42)
[2018-02-20] MEDS: Docusate CAP* 100 MG PO SCH (09:09)
[2018-02-20] MEDS: Vitamin THERAPEUTIC TAB PO SCH (09:09)
[2018-02-20] MEDS: Lactobacillus Acidophilus* 1 TAB PO SCH ×2 (09:09→21:06)
[2018-02-20] MEDS: OLANzapine TAB*ODT* 5 MG PO SCH (09:09)
[2018-02-20] MEDS: Gabapentin CAP(*) 400 MG PO SCH ×2 (09:09→21:05)
--- NOTE | 2018-02-20 15:22 | PN ---
Subjective - Subjective Date of Service: 02/20/18 Service Type: [id number] Hosp care 15 min low complexity Subjective: Sreedhar seems improved over yesterday. Eye contact is less intense, latencies are shorter, conversation is more on topic. She remains demanding and wants a clock , staff pass, comfort room privileges, computer privileges. We discuss that many of these privileges will be available on Sunday, which she maintains is a long time away. They privileges are linked to her agreement to continue taking medications. Objective - Appearance Appearance: Well Developed/Nourished Dysmorphic Features: No Hygiene: Normal Grooming: Fairly Well Kept - Behavior Psychomotor Activities: Normal Exhibits Abnormal Movement: No - Attitude and Relatedness Attitude and Relatedness: Cooperative Eye Contact: Good - Speech Quality: Unpressured Latencies: Short Quantity: Terse - Mood Patient's Decription of Mood: "Fine" - Affect Observed Affect: Constricted Affect Consistent with: Dysphoria - Thought Process Patient's Thought Process: Coherent, Loose Associations, Tangential Thought Content: No Passive Wish, No Suicidal Planning, No Homicidal Ideation, No Paranoid Ideation - Sensorium Experiencing Hallucinations: No, Sensorium is Clear Type of Hallucinations: Visual: No, Auditory: No, Command: No - Level of Consciousness Level of Consciousness: Alert Orientation: Yes Intact, Yes Orientated to Time, Yes Orientated to Place, Yes Orientated to Person - Impulse Control Impulse Control: Impaired - Insight and Judgement Insight and Judgement: Impaired - Group Participation Particating in Group Activities: Yes - Medication Management Medication Management Adherence: Yes - Additional Observations Comments: Sreedhar appears to be well groomed. Strong eye contact observed. Her affect is intense. She appears to have a tremor in her lower lip which I initially interpreted as emotion. There are latencies before each statement. All statements seem to be highly considered, but they do not seem to be universally relevant. She is heard having happy interactions in the milieu with other patients and at times with staff members. The staff members report that she can have bizarre interactions: that she can be on-topic and then deviate. Still, she is improving. Latencies are shorter. She is less hostile. Conversation is more on target. Assessment - Assessment Merits Inpatient Hospitalization: For Immediate Safety, For Stabilization Inpatient DSM-V Dx: F31.2 Clinical Impression: 22-y-o woman with a history of psychosis and mood disorder who comes to the hospital in a disorganized state. She is improving with adherence to medication recommendations. Plan - Plan Treatment Plan: Name: SREEDHAR MUKHERJEE Birthdate: 1995 [id number] Medications: Current Medications Acetaminophen (Tylenol Tab*) 325 mg PO Q6H PRN PRN Reason: PAIN OR TEMPERATURE Last Admin: 02/19/18 16:49 Dose: 325 mg Al Hydrox/Mg Hydrox/Simethicone (Maalox Plus*) 30 ml PO Q4H PRN PRN Reason: INDIGESTION Diphenhydramine HCl (Benadryl Po*) 50 mg PO Q6H PRN PRN Reason: AGITATION Last Admin: 02/20/18 03:06 Dose: 50 mg Divalproex Sodium (Depakote Dr Tab(*)) 500 mg PO BEDTIME [facility] Last Admin: 02/19/18 21:20 Dose: 500 mg Divalproex Sodium (Depakote Dr Tab(*)) 250 mg PO BEDTIME [facility] Last Admin: 02/19/18 21:20 Dose: 250 mg Docusate Sodium (Colace Cap*) 100 mg PO DAILY [facility] Last Admin: 02/20/18 09:09 Dose: 100 mg Gabapentin (Neurontin Cap(*)) 800 mg PO BID [facility] Last Admin: 02/20/18 09:09 Dose: 800 mg Haloperidol (Haldol Tab*) 5 mg PO Q6H PRN PRN Reason: AGITATION Last Admin: 02/11/18 07:46 Dose: 5 mg Lactobacillus Rhamnosus (Lactobacillus Acidophilus*) 1 tab PO BID [facility] Last Admin: 02/20/18 09:09 Dose: 1 tab Lorazepam (Ativan Tab(*)) 2 mg PO Q6H PRN PRN Reason: AGITATION Last Admin: 02/18/18 21:18 Dose: 1 mg Lorazepam (Ativan Tab(*)) 1 mg PO Q4H PRN PRN Reason: ANXIETY Last Admin: 02/20/18 13:18 Dose: 1 mg Multivitamins (Theragran Tab*) 1 tab PO DAILY [facility] Last Admin: 02/20/18 09:09 Dose: 1 tab Nicotine (Nicotine Inhaler*) 10 mg INH Q2H PRN PRN Reason: CRAVINGS Last Admin: 06/19/18 16:51 Dose: 10 mg Nicotine Polacrilex (Nicotine Gum*) 2 mg PO Q2H PRN PRN Reason: CRAVINGS Last Admin: 02/19/18 16:52 Dose: 2 mg Olanzapine (Zyprexa * Tab Odt) 5 mg PO DAILY [facility] Last Admin: 02/20/18 09:09 Dose: 5 mg Olanzapine (Zyprexa *Odt*) 10 mg PO BEDTIME [facility] Last Admin: 02/19/18 21:21 Dose: 10 mg - Discharge Plan Additional Comments: Ihotu will remain on the BSU and improve in the stability of mood and behavior. Her apparent stabilization when I met with her earlier during her admission was an aberrant finding in that she was not so organized with others who spoke with her for longer and about a wider range of topics. Her medication was changed to Zyprexa Zydis both at bedtime and in the morning. Depakote will remain at 750 at bedtime. Continued effort to encourage Ihotu to take her medications has been attempted. With continued adherence, discharge may be possible next week.
[2018-02-20] MEDS: Nicotine Inhaler* 10 MG AMP INH PRN (17:28)
[2018-02-20] MEDS: Nicotine GUM* 2 MG PO PRN (17:30)
[2018-02-20] MEDS: Divalproex DR TAB(*) 250 MG PO SCH (21:04)
[2018-02-20] MEDS: Divalproex DR TAB(*) 500 MG PO SCH (21:04)
[2018-02-20] MEDS: OLANzapine TAB*ODT* 10 MG TAB PO SCH (21:06)
[2018-02-21] MEDS: Gabapentin CAP(*) 400 MG PO SCH ×2 (09:22→20:14)
[2018-02-21] MEDS: OLANzapine TAB*ODT* 5 MG PO SCH (09:22)
[2018-02-21] MEDS: Vitamin THERAPEUTIC TAB PO SCH (09:22)
[2018-02-21] MEDS: Docusate CAP* 100 MG PO SCH (09:22)
[2018-02-21] MEDS: Lactobacillus Acidophilus* 1 TAB PO SCH ×2 (09:23→20:14)
[2018-02-21] MEDS: Acetaminophen TAB* 325 MG PO PRN (12:46)
[2018-02-21] MEDS: LORazepam TAB(*) 1 MG PO PRN (12:47)
[2018-02-21] MEDS: Divalproex DR TAB(*) 500 MG PO SCH (20:14)
[2018-02-21] MEDS: OLANzapine TAB*ODT* 10 MG TAB PO SCH (20:15)
[2018-02-21] MEDS: Nicotine GUM* 2 MG PO PRN (20:52)
[2018-02-21] MEDS: Divalproex DR TAB(*) 250 MG PO SCH (20:53)
--- NOTE | 2018-02-21 21:48 | PN ---
Subjective - Subjective Date of Service: 02/21/18 Service Type: [id number] Hosp care 15 min low complexity Subjective: Sreedhar is bizarre today. During a conversation, in which I followed her from the milieu, to the door of the comfort room, to the doorway of her room where she set a chair in the doorway, she asserted that the "Devil is confused...God bless you." She asked questions such as, "Do you have something to say to me? Are we meeting?" She remains hostile at times, pointedly ignoring questions and then asking again if a meeting will take place. Her stare has lessened, but she glares at people rather than asking them to move or acknowledge her. Objective - Appearance Appearance: Well Developed/Nourished Dysmorphic Features: No Hygiene: Normal Grooming: Fairly Well Kept - Behavior Psychomotor Activities: Normal Exhibits Abnormal Movement: No - Attitude and Relatedness Attitude and Relatedness: Psychotically Related Eye Contact: Good - Speech Quality: Unpressured Latencies: Long Quantity: Terse - Mood Patient's Decription of Mood: "Fine" - Affect Observed Affect: Tense Affect Consistent with: Dysphoria - Thought Process Patient's Thought Process: Disorganized Thought Content: No Passive Wish, No Suicidal Planning, No Homicidal Ideation, No Paranoid Ideation - Sensorium Experiencing Hallucinations: No, Sensorium is Clear Type of Hallucinations: Visual: No, Auditory: No, Command: No - Level of Consciousness Level of Consciousness: Alert Orientation: Yes Intact, Yes Orientated to Time, Yes Orientated to Place, Yes Orientated to Person - Impulse Control Impulse Control: Impaired - Insight and Judgement Insight and Judgement: Poor - Group Participation Particating in Group Activities: Yes - Medication Management Medication Management Adherence: Yes - Additional Observations Comments: Sreedhar appears to be well groomed. Strong eye contact observed. Her affect is intense. She appears to have a tremor in her lower lip which I initially interpreted as emotion. There are latencies before each statement. All statements seem to be highly considered, but they do not seem to be universally relevant. She is heard having happy interactions in the milieu with other patients and at times with staff members. The staff members report that she can have bizarre interactions: that she can be on-topic and then deviate. She has decompensated again today and appears to be more psychotic than yesterday. Assessment - Assessment Merits Inpatient Hospitalization: For Immediate Safety Inpatient DSM-V Dx: F31.2 Clinical Impression: 22-y-o woman with a history of psychosis and mood disorder who comes to the hospital in a disorganized state. She is adherent to medication schedule, but is not making progress today. Plan - Plan Treatment Plan: Name: SREEDHAR MUKHERJEE Birthdate: 1995 [id number] Medications: Current Medications Acetaminophen (Tylenol Tab*) 325 mg PO Q6H PRN PRN Reason: PAIN OR TEMPERATURE Last Admin: 02/21/18 12:46 Dose: 325 mg Al Hydrox/Mg Hydrox/Simethicone (Maalox Plus*) 30 ml PO Q4H PRN PRN Reason: INDIGESTION Diphenhydramine HCl (Benadryl Po*) 50 mg PO Q6H PRN PRN Reason: AGITATION Last Admin: 02/20/18 03:06 Dose: 50 mg Divalproex Sodium (Depakote Dr Tab(*)) 500 mg PO BEDTIME [facility] Last Admin: 02/21/18 20:14 Dose: 500 mg Divalproex Sodium (Depakote Dr Tab(*)) 250 mg PO BEDTIME [facility] Last Admin: 02/21/18 20:53 Dose: 250 mg Docusate Sodium (Colace Cap*) 100 mg PO DAILY [facility] Last Admin: 02/21/18 09:22 Dose: 100 mg Gabapentin (Neurontin Cap(*)) 800 mg PO BID [facility] Last Admin: 02/21/18 20:14 Dose: 800 mg Haloperidol (Haldol Tab*) 5 mg PO Q6H PRN PRN Reason: AGITATION Last Admin: 02/11/18 07:46 Dose: 5 mg Lactobacillus Rhamnosus (Lactobacillus Acidophilus*) 1 tab PO BID [facility] Last Admin: 02/21/18 20:14 Dose: 1 tab Lorazepam (Ativan Tab(*)) 2 mg PO Q6H PRN PRN Reason: AGITATION Last Admin: 02/18/18 21:18 Dose: 1 mg Lorazepam (Ativan Tab(*)) 1 mg PO Q4H PRN PRN Reason: ANXIETY Last Admin: 02/21/18 12:47 Dose: 1 mg Multivitamins (Theragran Tab*) 1 tab PO DAILY [facility] Last Admin: 02/21/18 09:22 Dose: 1 tab Nicotine (Nicotine Inhaler*) 10 mg INH Q2H PRN PRN Reason: CRAVINGS Last Admin: 02/20/18 17:28 Dose: 10 mg Nicotine Polacrilex (Nicotine Gum*) 2 mg PO Q2H PRN PRN Reason: CRAVINGS Last Admin: 02/21/18 20:52 Dose: 2 mg Olanzapine (Zyprexa * Tab Odt) 5 mg PO DAILY [facility] Last Admin: 02/21/18 09:22 Dose: 5 mg Olanzapine (Zyprexa *Odt*) 10 mg PO BEDTIME [facility] Last Admin: 02/21/18 20:15 Dose: 10 mg - Discharge Plan Additional Comments: Ihotu will remain on the BSU and improve in the stability of mood and behavior. Her apparent stabilization when I met with her earlier during her admission was an aberrant finding in that she was not so organized with others who spoke with her for longer and about a wider range of topics. Her medication was changed to Zyprexa Zydis both at bedtime and in the morning. Depakote will remain at 750 at bedtime. Continued effort to encourage Ihotu to take her medications has been attempted. With continued adherence, discharge may be possible next week. Still, her improvement has stalled and it is unclear whether she should remain here or move on to the [facility].
[2018-02-22] MEDS: Docusate CAP* 100 MG PO SCH (10:03)
[2018-02-22] MEDS: Gabapentin CAP(*) 400 MG PO SCH ×2 (10:03→21:55)
[2018-02-22] MEDS: Vitamin THERAPEUTIC TAB PO SCH (10:03)
[2018-02-22] MEDS: Lactobacillus Acidophilus* 1 TAB PO SCH ×2 (10:04→22:21)
[2018-02-22] MEDS: OLANzapine TAB*ODT* 5 MG PO SCH (10:04)
--- NOTE | 2018-02-22 13:49 | PN ---
Subjective - Subjective Date of Service: 02/22/18 Service Type: [id number] Hosp care 15 min low complexity Subjective: Ira Zohra and I attempted to meet with [facility] to discuss referral to [facility]. Although Sreedhar rarely made eye contact and barely spoke to us, she did acknowledge that we were speaking. After I had explained twice that I believed she needed to go to the [facility], she stood up and walked away. She then returned to say to Ira, "Thank you for your time." Objective - Appearance Appearance: Well Developed/Nourished, Healthy Appearing Dysmorphic Features: No Hygiene: Normal Grooming: Well Kept - Behavior Psychomotor Activities: Normal Exhibits Abnormal Movement: No - Attitude and Relatedness Attitude and Relatedness: Minimally Cooperative Eye Contact: Poor - Speech Quality: Unpressured Latencies: Long Quantity: Terse - Mood Patient's Decription of Mood: no description - Affect Observed Affect: Constricted Affect Consistent with: Dysphoria - Thought Process Patient's Thought Process: Disorganized, Impoverished Thought Content: No Passive Wish, No Suicidal Planning, No Homicidal Ideation, No Paranoid Ideation - Sensorium Experiencing Hallucinations: No, Sensorium is Clear Type of Hallucinations: Visual: No, Auditory: No, Command: No - Level of Consciousness Level of Consciousness: Agitated Orientation: Yes Intact, Yes Orientated to Time, Yes Orientated to Place, Yes Orientated to Person - Impulse Control Impulse Control: Impaired - Insight and Judgement Insight and Judgement: Poor - Group Participation Particating in Group Activities: Yes - Medication Management Medication Management Adherence: Yes - Additional Observations Comments: Sreedhar appears to be well groomed. Strong eye contact observed, when she chooses to make eye contact. Her affect is intense. She appears to have a tremor in her lower lip which I initially interpreted as emotion. There are latencies before each statement. All statements seem to be highly considered, but they do not seem to be relevant. She is decompensated again today and appears to be more psychotic than yesterday , once again. Assessment - Assessment Merits Inpatient Hospitalization: For Immediate Safety Inpatient DSM-V Dx: F31.2 Clinical Impression: 22-y-o woman with a history of psychosis and mood disorder who comes to the hospital in a disorganized state. She is adherent to medication schedule, but is not making progress today. Sreedhar has been here since February 08 and has not made progress, and in fact is less well than she was when she arrived. Plan - Plan Treatment Plan: Name: SREEDHAR MUKHERJEE Birthdate: 1995 [id number] Medications: Current Medications Acetaminophen (Tylenol Tab*) 325 mg PO Q6H PRN PRN Reason: PAIN OR TEMPERATURE Last Admin: 02/21/18 12:46 Dose: 325 mg Al Hydrox/Mg Hydrox/Simethicone (Maalox Plus*) 30 ml PO Q4H PRN PRN Reason: INDIGESTION Diphenhydramine HCl (Benadryl Po*) 50 mg PO Q6H PRN PRN Reason: AGITATION Last Admin: 02/20/18 03:06 Dose: 50 mg Divalproex Sodium (Depakote Dr Tab(*)) 500 mg PO BEDTIME [facility] Last Admin: 02/21/18 20:14 Dose: 500 mg Divalproex Sodium (Depakote Dr Tab(*)) 250 mg PO BEDTIME [facility] Last Admin: 02/21/18 20:53 Dose: 250 mg Docusate Sodium (Colace Cap*) 100 mg PO DAILY [facility] Last Admin: 02/22/18 10:03 Dose: 100 mg Gabapentin (Neurontin Cap(*)) 800 mg PO BID [facility] Last Admin: 02/22/18 10:03 Dose: 800 mg Haloperidol (Haldol Tab*) 5 mg PO Q6H PRN PRN Reason: AGITATION Last Admin: 02/11/18 07:46 Dose: 5 mg Lactobacillus Rhamnosus (Lactobacillus Acidophilus*) 1 tab PO BID [facility] Last Admin: 02/22/18 10:04 Dose: 1 tab Lorazepam (Ativan Tab(*)) 2 mg PO Q6H PRN PRN Reason: AGITATION Last Admin: 02/18/18 21:18 Dose: 1 mg Lorazepam (Ativan Tab(*)) 1 mg PO Q4H PRN PRN Reason: ANXIETY Last Admin: 02/21/18 12:47 Dose: 1 mg Multivitamins (Theragran Tab*) 1 tab PO DAILY [facility] Last Admin: 02/22/18 10:03 Dose: 1 tab Nicotine (Nicotine Inhaler*) 10 mg INH Q2H PRN PRN Reason: CRAVINGS Last Admin: 02/20/18 17:28 Dose: 10 mg Nicotine Polacrilex (Nicotine Gum*) 2 mg PO Q2H PRN PRN Reason: CRAVINGS Last Admin: 02/21/18 20:52 Dose: 2 mg Olanzapine (Zyprexa * Tab Odt) 5 mg PO DAILY [facility] Last Admin: 02/22/18 10:04 Dose: 5 mg Olanzapine (Zyprexa *Odt*) 10 mg PO BEDTIME [facility] Last Admin: 02/21/18 20:15 Dose: 10 mg - Discharge Plan Additional Comments: Sreedhar will remain on the BSU and improve in the stability of mood and behavior. Her apparent stabilization when I met with her earlier during her admission was an aberrant finding in that she was not so organized with others who spoke with her for longer and about a wider range of topics. Her medication was changed to Zyprexa Zydis both at bedtime and in the morning. Depakote will remain at 750 at bedtime. Continued effort to encourage Sreedhar to take her medications has been attempted. With continued adherence for several days, Sreedhar is not doing well. A referral to the [facility] will be begun.
[2018-02-22] MEDS: Acetaminophen TAB* 325 MG PO PRN (18:31)
[2018-02-22] MEDS: Nicotine GUM* 2 MG PO PRN ×2 (18:32→21:59)
[2018-02-22] MEDS: LORazepam TAB(*) 1 MG PO PRN (18:32)
[2018-02-22] MEDS: Divalproex DR TAB(*) 250 MG PO SCH (21:56)
[2018-02-22] MEDS: OLANzapine TAB*ODT* 10 MG TAB PO SCH (21:57)
[2018-02-22] MEDS: Divalproex DR TAB(*) 500 MG PO SCH (21:57)
[2018-02-23] MEDS: Lactobacillus Acidophilus* 1 TAB PO SCH ×2 (12:13→13:07)
[2018-02-23] MEDS: Docusate CAP* 100 MG PO SCH (12:13)
[2018-02-23] MEDS: Gabapentin CAP(*) 400 MG PO SCH ×3 (12:13→13:13)
[2018-02-23] MEDS: OLANzapine TAB*ODT* 5 MG PO SCH ×3 (12:14→13:13)
[2018-02-23] MEDS: Vitamin THERAPEUTIC TAB PO SCH (12:14)
[2018-02-23] MEDS: LORazepam TAB(*) 1 MG PO PRN (18:56)
[2018-02-23] MEDS: Acetaminophen TAB* 325 MG PO PRN (18:56)
[2018-02-23] MEDS: Nicotine GUM* 2 MG PO PRN (18:57)
[2018-02-23] MEDS: Nicotine Inhaler* 10 MG AMP INH PRN (18:57)
[2018-02-24] MEDS: OLANzapine TAB*ODT* 10 MG TAB PO SCH ×2 (01:25→21:46)
[2018-02-24] MEDS: Lactobacillus Acidophilus* 1 TAB PO SCH ×3 (01:25→21:46)
[2018-02-24] MEDS: Acetaminophen TAB* 325 MG PO PRN ×3 (01:25→19:58)
[2018-02-24] MEDS: Divalproex DR TAB(*) 250 MG PO SCH ×2 (01:25→21:45)
[2018-02-24] MEDS: Divalproex DR TAB(*) 500 MG PO SCH ×2 (01:25→21:45)
[2018-02-24] MEDS: Gabapentin CAP(*) 400 MG PO SCH ×3 (01:25→21:45)
[2018-02-24] MEDS: LORazepam TAB(*) 1 MG PO PRN ×3 (01:25→19:57)
[2018-02-24] MEDS: OLANzapine TAB*ODT* 5 MG PO SCH (08:21)
[2018-02-24] MEDS: Docusate CAP* 100 MG PO SCH (08:21)
[2018-02-24] MEDS: Vitamin THERAPEUTIC TAB PO SCH (08:22)
[2018-02-24] MEDS: diPHENhydraMINE PO* 50 MG PO PRN (19:57)
[2018-02-25] MEDS: Vitamin THERAPEUTIC TAB PO SCH (08:20)
[2018-02-25] MEDS: Gabapentin CAP(*) 400 MG PO SCH ×2 (08:20→20:26)
[2018-02-25] MEDS: Docusate CAP* 100 MG PO SCH (08:20)
[2018-02-25] MEDS: OLANzapine TAB*ODT* 5 MG PO SCH (08:20)
[2018-02-25] MEDS: Lactobacillus Acidophilus* 1 TAB PO SCH ×2 (08:20→20:27)
[2018-02-25] MEDS: Acetaminophen TAB* 325 MG PO PRN (10:56)
[2018-02-25] MEDS: LORazepam TAB(*) 1 MG PO PRN (10:57)
[2018-02-25] MEDS ORDERED: OLANzapine TAB*ODT* 5 MG PO ONE (14:00)
--- NOTE | 2018-02-25 14:42 | PN ---
Subjective - Subjective Date of Service: 02/25/18 Service Type: [id number] Hosp care 25 min moderate complexity Subjective: Sreedhar seems a bit better today. Although she still has an intense gaze and is less than enthusiastic about speaking to me, in fact requesting to speak only while Ira العلي, PERSONAL CARE ATTENDANT, is present and often addresses questions to me to Ira. Sreedhar asserts she is much better. She says her second week here was "a reaction" although she doesn't say to what, neither does she identify the behaviors she is referring to. We discuss that she had rotting fruit in her shower and she states the fruit was actually under her bed and that it wasn't rotting. She also had a cup of oil in the shower due to having inadequate moisturizer. She could/would not say where she got it. Her affect is strange and she does acknowledge that as a cultural difference. We discussed this, too, as at the beginning of her hospitalization she seemed acclimated to this culture. Objective - Appearance Appearance: Well Developed/Nourished Dysmorphic Features: No Hygiene: Normal Grooming: Well Kept - Behavior Psychomotor Activities: Normal Exhibits Abnormal Movement: No - Attitude and Relatedness Attitude and Relatedness: Superficially Cooperative Eye Contact: Fair - Speech Quality: Unpressured Latencies: Short Quantity: Terse - Mood Patient's Decription of Mood: "Irritable" - Affect Observed Affect: Tense Affect Consistent with: Dysphoria - Thought Process Patient's Thought Process: Coherent, Loose Associations Thought Content: No Passive Wish, No Suicidal Planning, No Homicidal Ideation, No Paranoid Ideation - Sensorium Experiencing Hallucinations: No, Sensorium is Clear Type of Hallucinations: Visual: No, Auditory: No, Command: No - Level of Consciousness Level of Consciousness: Agitated Orientation: Yes Intact, Yes Orientated to Time, Yes Orientated to Place, Yes Orientated to Person - Impulse Control Impulse Control: Impaired - Insight and Judgement Insight and Judgement: Poor - Group Participation Particating in Group Activities: Yes - Medication Management Medication Management Adherence: Yes - Additional Observations Comments: Sreedhar appears to be well groomed. Strong eye contact observed, when she chooses to make eye contact. Her affect is intense. She appears to have a tremor in her lower lip which I initially interpreted as emotion. There are latencies before each statement. All statements seem to be highly considered, but they do not seem to be relevant. She is initially less decompensated than she had been. As conversation continues , more symptoms of disorganization are revealed. Assessment - Assessment Merits Inpatient Hospitalization: For Immediate Safety Inpatient DSM-V Dx: F31.2 Clinical Impression: 22-y-o woman with a history of psychosis and mood disorder who comes to the hospital in a disorganized state. She is adherent to medication schedule, but is not making progress today. Sreedhar has been here since February 08 and has not made progress, and in fact is less well than she was when she arrived. She lacks insight into her behaviors being strange or unusual and has explanations for them that also do not make sense. Plan - Plan Treatment Plan: Name: SREEDHAR MUKHERJEE Birthdate: 1995 [id number] Medications: Current Medications Acetaminophen (Tylenol Tab*) 325 mg PO Q6H PRN PRN Reason: PAIN OR TEMPERATURE Last Admin: 02/25/18 10:56 Dose: 325 mg Al Hydrox/Mg Hydrox/Simethicone (Maalox Plus*) 30 ml PO Q4H PRN PRN Reason: INDIGESTION Diphenhydramine HCl (Benadryl Po*) 50 mg PO Q6H PRN PRN Reason: AGITATION Last Admin: 02/24/18 19:57 Dose: 50 mg Divalproex Sodium (Depakote Dr Tab(*)) 500 mg PO BEDTIME [facility] Last Admin: 02/24/18 21:45 Dose: 500 mg Divalproex Sodium (Depakote Dr Tab(*)) 250 mg PO BEDTIME [facility] Last Admin: 02/24/18 21:45 Dose: 250 mg Docusate Sodium (Colace Cap*) 100 mg PO DAILY [facility] Last Admin: 02/25/18 08:20 Dose: 100 mg Gabapentin (Neurontin Cap(*)) 800 mg PO BID [facility] Last Admin: 02/25/18 08:20 Dose: 800 mg Haloperidol (Haldol Tab*) 5 mg PO Q6H PRN PRN Reason: AGITATION Last Admin: 02/11/18 07:46 Dose: 5 mg Lactobacillus Rhamnosus (Lactobacillus Acidophilus*) 1 tab PO BID [facility] Last Admin: 02/25/18 08:20 Dose: 1 tab Lorazepam (Ativan Tab(*)) 2 mg PO Q6H PRN PRN Reason: AGITATION Last Admin: 02/24/18 19:57 Dose: 2 mg Lorazepam (Ativan Tab(*)) 1 mg PO Q4H PRN PRN Reason: ANXIETY Last Admin: 02/25/18 10:57 Dose: 1 mg Multivitamins (Theragran Tab*) 1 tab PO DAILY [facility] Last Admin: 02/25/18 08:20 Dose: 1 tab Nicotine (Nicotine Inhaler*) 10 mg INH Q2H PRN PRN Reason: CRAVINGS Last Admin: 02/23/18 18:57 Dose: 10 mg Nicotine Polacrilex (Nicotine Gum*) 2 mg PO Q2H PRN PRN Reason: CRAVINGS Last Admin: 02/23/18 18:57 Dose: 2 mg Olanzapine (Zyprexa *Odt*) 10 mg PO BID [facility] - Discharge Plan Discharge Plan: Consider Longer Term Tx Additional Comments: Sreedhar will remain on the BSU and improve in the stability of mood and behavior. Her apparent stabilization when I met with her earlier during her admission was an aberrant finding in that she was not so organized with others who spoke with her for longer and about a wider range of topics. Her medication was changed to Zyprexa Zydis 10 mg both at bedtime and in the morning (this is a 5 mg increase today). Depakote will remain at 750 at bedtime. Continued effort to encourage Sreedhar to take her medications has been attempted. Sreedhar is not doing well. A referral to the [facility] has begun.
[2018-02-25] MEDS: Nicotine GUM* 2 MG PO PRN (15:44)
[2018-02-25] MEDS: Nicotine Inhaler* 10 MG AMP INH PRN (15:44)
[2018-02-25] MEDS: Divalproex DR TAB(*) 500 MG PO SCH (20:27)
[2018-02-25] MEDS: Divalproex DR TAB(*) 250 MG PO SCH (20:28)
[2018-02-25] MEDS: OLANzapine TAB*ODT* 10 MG TAB PO SCH (20:28)
[2018-02-26] MEDS: Vitamin THERAPEUTIC TAB PO SCH (08:22)
[2018-02-26] MEDS: Gabapentin CAP(*) 400 MG PO SCH ×2 (08:22→21:24)
[2018-02-26] MEDS: Lactobacillus Acidophilus* 1 TAB PO SCH ×2 (08:22→21:27)
[2018-02-26] MEDS: Docusate CAP* 100 MG PO SCH (08:22)
[2018-02-26] MEDS: OLANzapine TAB*ODT* 10 MG TAB PO SCH ×2 (08:22→21:27)
[2018-02-26] MEDS: LORazepam TAB(*) 1 MG PO PRN (13:33)
[2018-02-26] MEDS: Acetaminophen TAB* 325 MG PO PRN (17:26)
[2018-02-26] MEDS: Nicotine GUM* 2 MG PO PRN (17:27)
[2018-02-26] MEDS: Nicotine Inhaler* 10 MG AMP INH PRN (17:27)
[2018-02-26] MEDS: Divalproex DR TAB(*) 500 MG PO SCH (21:24)
[2018-02-26] MEDS: Divalproex DR TAB(*) 250 MG PO SCH (21:24)
[2018-02-27] MEDS: Docusate CAP* 100 MG PO SCH (08:34)
[2018-02-27] MEDS: Gabapentin CAP(*) 400 MG PO SCH ×2 (08:34→21:00)
[2018-02-27] MEDS: Lactobacillus Acidophilus* 1 TAB PO SCH ×2 (08:35→21:01)
[2018-02-27] MEDS: Vitamin THERAPEUTIC TAB PO SCH (08:35)
[2018-02-27] MEDS: OLANzapine TAB*ODT* 10 MG TAB PO SCH ×2 (08:35→21:01)
--- NOTE | 2018-02-27 15:19 | PN ---
Subjective - Subjective Date of Service: 02/27/18 Service Type: [id number] Hosp care 35 min high complexity Subjective: Sreedahr, her mom, Sharee, her friend Haven, Ira العلي, and I had a family meeting , which was quite lengthy. Sreedahr is scheduled to go to court on Sunday, but she is improving significantly and that may not be necessary. We agreed to revisit the idea of court tomorrow before 2 pm. Trells latencies remain noticeable, but she is also aware of them now. She had many coherent things to say and when the conversation topic ranged from the one at hand, it was an understandable digression. Objective - Appearance Appearance: Well Developed/Nourished Dysmorphic Features: No Hygiene: Normal Grooming: Well Kept - Behavior Psychomotor Activities: Normal Exhibits Abnormal Movement: No - Attitude and Relatedness Attitude and Relatedness: Well Related - Speech Quality: Unpressured Latencies: Normal Quantity: Appropriate - Mood Patient's Decription of Mood: "Okay" - Affect Observed Affect: Fair Affect Consistent with: Dysphoria - Thought Process Patient's Thought Process: Coherent, Goal Directed Thought Content: No Passive Wish, No Suicidal Planning, No Homicidal Ideation, No Paranoid Ideation - Sensorium Experiencing Hallucinations: No, Sensorium is Clear Type of Hallucinations: Visual: No, Auditory: No, Command: No - Level of Consciousness Level of Consciousness: Alert Orientation: Yes Intact, Yes Orientated to Time, Yes Orientated to Place, Yes Orientated to Person - Insight and Judgement Insight and Judgement: Fair - Group Participation Particating in Group Activities: Yes - Medication Management Medication Management Adherence: Yes - Additional Observations Comments: Sreedhar appears to be well groomed. Her eye contact has lessened in intensity. Latencies in speech are also reduced and she is aware of them. There has been significant improvement. Assessment - Assessment Merits Inpatient Hospitalization: For Immediate Safety, For Stabilization Inpatient DSM-V Dx: F31.2 Clinical Impression: 22-y-o woman with a history of psychosis and mood disorder who came to the hospital in a disorganized state. She is adherent to medication schedule, and is making progress today. Sreedhar has been here since February 08. She appears to be improving and had a successful family meeting Plan - Plan Treatment Plan: Name: SREEDHAR MUKHERJEE Birthdate: 1995 [id number] Medications: Current Medications Acetaminophen (Tylenol Tab*) 325 mg PO Q6H PRN PRN Reason: PAIN OR TEMPERATURE Last Admin: 02/26/18 17:26 Dose: 325 mg Al Hydrox/Mg Hydrox/Simethicone (Maalox Plus*) 30 ml PO Q4H PRN PRN Reason: INDIGESTION Diphenhydramine HCl (Benadryl Po*) 50 mg PO Q6H PRN PRN Reason: AGITATION Last Admin: 02/24/18 19:57 Dose: 50 mg Divalproex Sodium (Depakote Dr Tab(*)) 500 mg PO BEDTIME [facility] Last Admin: 02/26/18 21:24 Dose: 500 mg Divalproex Sodium (Depakote Dr Tab(*)) 250 mg PO BEDTIME [facility] Last Admin: 02/26/18 21:24 Dose: 250 mg Docusate Sodium (Colace Cap*) 100 mg PO DAILY [facility] Last Admin: 02/27/18 08:34 Dose: Not Given Gabapentin (Neurontin Cap(*)) 800 mg PO BID [facility] Last Admin: 02/27/18 08:34 Dose: 800 mg Haloperidol (Haldol Tab*) 5 mg PO Q6H PRN PRN Reason: AGITATION Last Admin: 02/11/18 07:46 Dose: 5 mg Lactobacillus Rhamnosus (Lactobacillus Acidophilus*) 1 tab PO BID [facility] Last Admin: 02/27/18 08:35 Dose: 1 tab Lorazepam (Ativan Tab(*)) 2 mg PO Q6H PRN PRN Reason: AGITATION Last Admin: 02/26/18 13:33 Dose: 2 mg Lorazepam (Ativan Tab(*)) 1 mg PO Q4H PRN PRN Reason: ANXIETY Last Admin: 02/25/18 10:57 Dose: 1 mg Multivitamins (Theragran Tab*) 1 tab PO DAILY [facility] Last Admin: 02/27/18 08:35 Dose: 1 tab Nicotine (Nicotine Inhaler*) 10 mg INH Q2H PRN PRN Reason: CRAVINGS Last Admin: 02/26/18 17:27 Dose: 10 mg Nicotine Polacrilex (Nicotine Gum*) 2 mg PO Q2H PRN PRN Reason: CRAVINGS Last Admin: 02/26/18 17:27 Dose: 2 mg Olanzapine (Zyprexa *Odt*) 10 mg PO BID [facility] Last Admin: 02/27/18 08:35 Dose: 10 mg - Discharge Plan Additional Comments: Ihotu will remain on the BSU and improve in the stability of mood and behavior. Her medication was changed to Zyprexa Zydis 10 mg both at bedtime and in the morning (this is a 5 mg increase on Sunday the ). Depakote will remain at 750 at bedtime. Continued effort to encourage Ihotcass to take her medications has been attempted. A referral to the [facility] has begun, but during the family meeting Ihotu had improved significantly.
[2018-02-27] MEDS: LORazepam TAB(*) 1 MG PO PRN (18:34)
[2018-02-27] MEDS: Acetaminophen TAB* 325 MG PO PRN (19:46)
[2018-02-27] MEDS: Divalproex DR TAB(*) 500 MG PO SCH (21:00)
[2018-02-27] MEDS: Divalproex DR TAB(*) 250 MG PO SCH (21:00)
[2018-02-28] MEDS: Vitamin THERAPEUTIC TAB PO SCH (08:42)
[2018-02-28] MEDS: Gabapentin CAP(*) 400 MG PO SCH ×2 (08:42→21:24)
[2018-02-28] MEDS: Lactobacillus Acidophilus* 1 TAB PO SCH ×2 (08:42→21:23)
[2018-02-28] MEDS: Docusate CAP* 100 MG PO SCH (08:42)
[2018-02-28] MEDS: OLANzapine TAB*ODT* 10 MG TAB PO SCH ×2 (08:42→21:26)
[2018-02-28] MEDS: Nicotine Inhaler* 10 MG AMP INH PRN (09:07)
[2018-02-28] MEDS: Nicotine GUM* 2 MG PO PRN (09:07)
[2018-02-28] MEDS: Acetaminophen TAB* 325 MG PO PRN (09:07)
[2018-02-28] MEDS: Divalproex DR TAB(*) 250 MG PO SCH (21:25)
[2018-02-28] MEDS: Divalproex DR TAB(*) 500 MG PO SCH (21:26)
[2018-03-01] MEDS: Docusate CAP* 100 MG PO SCH (09:14)
[2018-03-01] MEDS: Gabapentin CAP(*) 400 MG PO SCH ×2 (09:14→20:35)
[2018-03-01] MEDS: OLANzapine TAB*ODT* 10 MG TAB PO SCH ×2 (09:15→20:40)
[2018-03-01] MEDS: Vitamin THERAPEUTIC TAB PO SCH (09:15)
[2018-03-01] MEDS: Lactobacillus Acidophilus* 1 TAB PO SCH ×2 (09:15→20:36)
--- NOTE | 2018-03-01 15:16 | PN ---
Subjective - Subjective Date of Service: 03/01/18 Service Type: [id number] Hosp care 15 min low complexity Subjective: Sreedhar is quiet, but pleasant. She seems thoughtful, but not preoccupied. Latencies remain in conversation, but she is on topic and reasonable. She would like to reduce her medications, and we will revisit this on Sunday, but as she is not fully well, I don't see this as a possibility. Objective - Appearance Appearance: Well Developed/Nourished, Healthy Appearing Dysmorphic Features: No Hygiene: Normal Grooming: Well Kept - Behavior Psychomotor Activities: Normal Exhibits Abnormal Movement: No - Attitude and Relatedness Attitude and Relatedness: Cooperative Eye Contact: Good - Speech Quality: Unpressured Latencies: Long Quantity: Terse - Mood Patient's Decription of Mood: "Fine" - Affect Observed Affect: Constricted Affect Consistent with: Euthymia - Thought Process Patient's Thought Process: Coherent, Goal Directed Thought Content: No Passive Wish, No Suicidal Planning, No Homicidal Ideation, No Paranoid Ideation - Sensorium Experiencing Hallucinations: No, Sensorium is Clear Type of Hallucinations: Visual: Yes, Auditory: Yes, Command: Yes - Level of Consciousness Level of Consciousness: Alert Orientation: Yes Intact, Yes Orientated to Time, Yes Orientated to Place, Yes Orientated to Person - Impulse Control Impulse Control: Impaired - Insight and Judgement Insight and Judgement: Impaired - Group Participation Particating in Group Activities: No - Medication Management Medication Management Adherence: Yes - Additional Observations Comments: Sreedhar appears to be well groomed. Her eye contact has lessened in intensity. Latencies in speech are also reduced and she is aware of them. There has been significant improvement, yet she remains impaired. Nevertheless, she remains on topic in conversation. She is not obviously responding to internal stimuli. She relates in a strange way, as if she is carefully choosing her words. Assessment - Assessment Merits Inpatient Hospitalization: For Immediate Safety, For Stabilization Inpatient DSM-V Dx: F31.2 Clinical Impression: 22-y-o woman with a history of psychosis and mood disorder who came to the hospital in a disorganized state. She is adherent to medication schedule, and is making progress today. Sreedhar has been here since February 08. She appears to be improving and had a successful family meeting. Today she has been seclusive to her room, but calls it a "restful" time. Her progress continues, although it seems to fluctuate from day to day. Plan - Plan Treatment Plan: Name: SREEDHAR MUKHERJEE Birthdate: 1995 [id number] Medications: Current Medications Acetaminophen (Tylenol Tab*) 325 mg PO Q6H PRN PRN Reason: PAIN OR TEMPERATURE Last Admin: 02/28/18 09:07 Dose: 325 mg Al Hydrox/Mg Hydrox/Simethicone (Maalox Plus*) 30 ml PO Q4H PRN PRN Reason: INDIGESTION Diphenhydramine HCl (Benadryl Po*) 50 mg PO Q6H PRN PRN Reason: AGITATION Last Admin: 02/24/18 19:57 Dose: 50 mg Divalproex Sodium (Depakote Dr Tab(*)) 500 mg PO BEDTIME [facility] Last Admin: 02/28/18 21:26 Dose: 500 mg Divalproex Sodium (Depakote Dr Tab(*)) 250 mg PO BEDTIME [facility] Last Admin: 02/28/18 21:25 Dose: 250 mg Docusate Sodium (Colace Cap*) 100 mg PO DAILY [facility] Last Admin: 03/01/18 09:14 Dose: Not Given Gabapentin (Neurontin Cap(*)) 800 mg PO BID [facility] Last Admin: 03/01/18 09:14 Dose: 800 mg Haloperidol (Haldol Tab*) 5 mg PO Q6H PRN PRN Reason: AGITATION Last Admin: 02/11/18 07:46 Dose: 5 mg Lactobacillus Rhamnosus (Lactobacillus Acidophilus*) 1 tab PO BID [facility] Last Admin: 03/01/18 09:15 Dose: 1 tab Lorazepam (Ativan Tab(*)) 2 mg PO Q6H PRN PRN Reason: AGITATION Last Admin: 02/27/18 18:34 Dose: 2 mg Lorazepam (Ativan Tab(*)) 1 mg PO Q4H PRN PRN Reason: ANXIETY Last Admin: 02/25/18 10:57 Dose: 1 mg Multivitamins (Theragran Tab*) 1 tab PO DAILY [facility] Last Admin: 03/01/18 09:15 Dose: 1 tab Nicotine (Nicotine Inhaler*) 10 mg INH Q2H PRN PRN Reason: CRAVINGS Last Admin: 02/28/18 09:07 Dose: 10 mg Nicotine Polacrilex (Nicotine Gum*) 2 mg PO Q2H PRN PRN Reason: CRAVINGS Last Admin: 02/28/18 09:07 Dose: 2 mg Olanzapine (Zyprexa *Odt*) 10 mg PO BID [facility] Last Admin: 03/01/18 09:15 Dose: 10 mg - Discharge Plan Discharge Plan: Outpatient Follow Up Outpatient Program: [facility] Additional Comments: Sreedhar will remain on the BSU and improve in the stability of mood and behavior. Her medication was changed to Zyprexa Zydis 10 mg both at bedtime and in the morning (this is a 5 mg increase on Sunday the ). Depakote will remain at 750 at bedtime. Continued effort to encourage Sreedhar to take her medications has been attempted. A referral to the [facility] has begun, but during the family meeting Sreedhar had improved significantly. We have at least temporarily suspended the referral to the [facility]. Upon discharge, Sreedhar's Depakote will be reduced to 500 mg, as I agreed to this on the first week.
[2018-03-01] MEDS: Divalproex DR TAB(*) 500 MG PO SCH (20:36)
[2018-03-01] MEDS: Divalproex DR TAB(*) 250 MG PO SCH (20:36)
[2018-03-02] MEDS: Gabapentin CAP(*) 400 MG PO SCH ×2 (08:30→21:27)
[2018-03-02] MEDS: Docusate CAP* 100 MG PO SCH (08:30)
[2018-03-02] MEDS: Vitamin THERAPEUTIC TAB PO SCH (08:30)
[2018-03-02] MEDS: Lactobacillus Acidophilus* 1 TAB PO SCH ×2 (08:30→21:27)
[2018-03-02] MEDS: OLANzapine TAB*ODT* 10 MG TAB PO SCH ×2 (08:31→21:27)
[2018-03-02] MEDS: Acetaminophen TAB* 325 MG PO PRN (13:54)
[2018-03-02] MEDS: Nicotine GUM* 2 MG PO PRN (17:20)
[2018-03-02] MEDS: Divalproex DR TAB(*) 250 MG PO SCH (21:27)
[2018-03-02] MEDS: Divalproex DR TAB(*) 500 MG PO SCH (21:27)
[2018-03-03] MEDS: Vitamin THERAPEUTIC TAB PO SCH (09:47)
[2018-03-03] MEDS: Lactobacillus Acidophilus* 1 TAB PO SCH ×2 (09:47→21:41)
[2018-03-03] MEDS: OLANzapine TAB*ODT* 10 MG TAB PO SCH ×2 (09:48→21:41)
[2018-03-03] MEDS: Gabapentin CAP(*) 400 MG PO SCH ×2 (09:48→21:41)
[2018-03-03] MEDS: Acetaminophen TAB* 325 MG PO PRN (09:49)
[2018-03-03] MEDS: Docusate CAP* 100 MG PO SCH (09:52)
[2018-03-03] MEDS: diPHENhydraMINE PO* 50 MG PO PRN (11:53)
[2018-03-03] MEDS: LORazepam TAB(*) 1 MG PO PRN (14:17)
[2018-03-03] MEDS: Divalproex DR TAB(*) 500 MG PO SCH (21:41)
[2018-03-03] MEDS: Divalproex DR TAB(*) 250 MG PO SCH (21:41)
[2018-03-04] MEDS: Gabapentin CAP(*) 400 MG PO SCH ×2 (07:54→21:20)
[2018-03-04] MEDS: Vitamin THERAPEUTIC TAB PO SCH (07:54)
[2018-03-04] MEDS: Docusate CAP* 100 MG PO SCH (07:56)
[2018-03-04] MEDS: Lactobacillus Acidophilus* 1 TAB PO SCH ×2 (07:56→21:21)
[2018-03-04] MEDS: OLANzapine TAB*ODT* 10 MG TAB PO SCH ×2 (07:56→21:21)
--- NOTE | 2018-03-04 11:58 | PN ---
MHU: Group Therapy Note - Service Type Service Type: [id number] Group Psychotherapy - Cognitive Behavioral Group Therapy ( CBT):Patient was attentive and participatory in CBT programming this morning, and remained in good behavioral control. Patient expressed positive insights regarding relevant treatment interventions and goals.
--- NOTE | 2018-03-04 12:57 | PN ---
Subjective - Subjective Date of Service: 03/04/18 Service Type: [id number] Hosp care 15 min low complexity Subjective: Sreedhar has been keeping to herself over the weekend. her conversation with me is less strained. She very clearly wants to go home and is gently assertive in asking for that. While not the bubbly person I met a few days after her arrival , she does not pose a danger to herself or others. Latencies are shorter and fewer. Objective - Appearance Appearance: Well Developed/Nourished Dysmorphic Features: No Hygiene: Normal Grooming: Well Kept - Behavior Psychomotor Activities: Normal Exhibits Abnormal Movement: No - Attitude and Relatedness Attitude and Relatedness: Appropriate Eye Contact: Good - Speech Quality: Unpressured Latencies: Short Quantity: Terse - Mood Patient's Decription of Mood: "Fine" - Affect Observed Affect: Tense Affect Consistent with: Dysphoria - Thought Process Patient's Thought Process: Coherent, Goal Directed Thought Content: No Passive Wish, No Suicidal Planning, No Homicidal Ideation, No Paranoid Ideation - Sensorium Experiencing Hallucinations: No, Sensorium is Clear Type of Hallucinations: Visual: No, Auditory: No, Command: No - Level of Consciousness Level of Consciousness: Alert Orientation: Yes Intact, Yes Orientated to Time, Yes Orientated to Place, Yes Orientated to Person - Impulse Control Impulse Control: Intact - Insight and Judgement Insight and Judgement: Fair - Group Participation Particating in Group Activities: No - Medication Management Medication Management Adherence: Yes - Additional Observations Comments: Sreedhar appears to be well groomed. Her eye contact has lessened in intensity. Latencies in speech are also reduced and she is aware of them. There has been significant improvement, yet she remains impaired. Nevertheless, she remains on topic in conversation. She is not obviously responding to internal stimuli and denies it. She relates in a strange way, as if she is carefully choosing her words. Her eye contact is less intense. She is irritable, but she also points out she's been here three weeks and wants to leave. Assessment - Assessment Merits Inpatient Hospitalization: For Stabilization, For Ongoing Evaluation Inpatient DSM-V Dx: F31.2 Clinical Impression: 22-y-o woman with a history of psychosis and mood disorder who came to the hospital in a disorganized state. She is adherent to medication schedule, and is making progress today. Sreedhar has been here since February 08. She appears to be improving and had a successful family meeting. She is irritable and unhappy about being in the hospital, but she brightens considerably when told she can go home tomorrow. Plan - Plan Treatment Plan: Name: SREEDHAR MUKHERJEE Birthdate: 1995 [id number] Medications: Current Medications Acetaminophen (Tylenol Tab*) 325 mg PO Q6H PRN PRN Reason: PAIN OR TEMPERATURE Last Admin: 03/03/18 09:49 Dose: 325 mg Al Hydrox/Mg Hydrox/Simethicone (Maalox Plus*) 30 ml PO Q4H PRN PRN Reason: INDIGESTION Diphenhydramine HCl (Benadryl Po*) 50 mg PO Q6H PRN PRN Reason: AGITATION Last Admin: 03/03/18 11:53 Dose: 50 mg Divalproex Sodium (Depakote Dr Tab(*)) 500 mg PO BEDTIME [facility] Last Admin: 03/03/18 21:41 Dose: 500 mg Divalproex Sodium (Depakote Dr Tab(*)) 250 mg PO BEDTIME [facility] Last Admin: 03/03/18 21:41 Dose: 250 mg Docusate Sodium (Colace Cap*) 100 mg PO DAILY [facility] Last Admin: 03/04/18 07:56 Dose: Not Given Gabapentin (Neurontin Cap(*)) 800 mg PO BID [facility] Last Admin: 03/04/18 07:54 Dose: 800 mg Haloperidol (Haldol Tab*) 5 mg PO Q6H PRN PRN Reason: AGITATION Last Admin: 02/11/18 07:46 Dose: 5 mg Lactobacillus Rhamnosus (Lactobacillus Acidophilus*) 1 tab PO BID [facility] Last Admin: 03/04/18 07:56 Dose: 1 tab Lorazepam (Ativan Tab(*)) 2 mg PO Q6H PRN PRN Reason: AGITATION Last Admin: 02/27/18 18:34 Dose: 2 mg Lorazepam (Ativan Tab(*)) 1 mg PO Q4H PRN PRN Reason: ANXIETY Last Admin: 03/03/18 14:17 Dose: 1 mg Multivitamins (Theragran Tab*) 1 tab PO DAILY [facility] Last Admin: 03/04/18 07:54 Dose: 1 tab Nicotine (Nicotine Inhaler*) 10 mg INH Q2H PRN PRN Reason: CRAVINGS Last Admin: 02/28/18 09:07 Dose: 10 mg Nicotine Polacrilex (Nicotine Gum*) 2 mg PO Q2H PRN PRN Reason: CRAVINGS Last Admin: 03/02/18 17:20 Dose: 2 mg Olanzapine (Zyprexa *Odt*) 10 mg PO BID [facility] Last Admin: 03/04/18 07:56 Dose: 10 mg - Discharge Plan Discharge Plan: Outpatient Follow Up Outpatient Program: [facility] Additional Comments: Sreedhar will remain on the BSU and improve in the stability of mood and behavior. Her medication was changed to Zyprexa Zydis 10 mg both at bedtime and in the morning (this is a 5 mg increase on Sunday the ). Depakote will remain at 750 at bedtime. Continued effort to encourage Sreedhar to take her medications has been attempted. Upon discharge, Sreedhar's Depakote will be reduced to 500 mg, as I agreed to this on the first week. She will be diischarged tomorrow.
[2018-03-04] MEDS: LORazepam TAB(*) 1 MG PO PRN (15:22)
[2018-03-04] MEDS: Nicotine Inhaler* 10 MG AMP INH PRN (15:23)
[2018-03-04] MEDS: Nicotine GUM* 2 MG PO PRN (15:24)
[2018-03-04] MEDS: Divalproex DR TAB(*) 250 MG PO SCH (21:19)
[2018-03-04] MEDS: Divalproex DR TAB(*) 500 MG PO SCH (21:19)
[2018-03-05] MEDS: OLANzapine TAB*ODT* 10 MG TAB PO SCH ×2 (08:57→21:11)
[2018-03-05] MEDS: Docusate CAP* 100 MG PO SCH ×2 (08:57→09:00)
[2018-03-05] MEDS: Gabapentin CAP(*) 400 MG PO SCH ×2 (08:57→21:11)
[2018-03-05] MEDS: Lactobacillus Acidophilus* 1 TAB PO SCH ×2 (08:57→21:11)
[2018-03-05] MEDS: Vitamin THERAPEUTIC TAB PO SCH (08:57)
[2018-03-05] MEDS: Acetaminophen TAB* 325 MG PO PRN (08:58)
[2018-03-05] MEDS: Nicotine Inhaler* 10 MG AMP INH PRN (09:41)
[2018-03-05] MEDS ORDERED: Mouth Piece, Nicotine* 1 EACH CARTRIDGE ONE (09:41)
[2018-03-05] MEDS: Nicotine GUM* 2 MG PO PRN (11:41)
--- NOTE | 2018-03-05 13:51 | PN ---
MHU: Group Therapy Note - Service Type Service Type: [id number] Group Psychotherapy - Cognitive Behavioral Group Therapy ( CBT):Patient was attentive and participatory in CBT programming this morning, and remained in good behavioral control. Patient expressed positive insights regarding relevant treatment interventions and goals.
--- NOTE | 2018-03-05 14:16 | PN ---
Subjective - Subjective Date of Service: 03/05/18 Service Type: 08596 Hosp care 15 min low complexity Subjective: Sreedhar is glad to be on track to go home. She is still not excited about her medications. I spoke with her mother who would like Sreedhar to stay in the hospital longer and find a medication that Sreedhar would like. This is really not a viable option as Sreedhar has been here a long time, has tried many multiple medications in the past , and declined Latuda. Objective - Appearance Appearance: Well Developed/Nourished Dysmorphic Features: No Hygiene: Normal Grooming: Well Kept - Behavior Psychomotor Activities: Normal Exhibits Abnormal Movement: No - Attitude and Relatedness Attitude and Relatedness: Superficially Cooperative Eye Contact: Good - Speech Quality: Unpressured Latencies: Normal Quantity: Terse - Mood Patient's Decription of Mood: "Okay" - Affect Observed Affect: Constricted Affect Consistent with: Euthymia - Thought Process Patient's Thought Process: Coherent Thought Content: No Passive Wish, No Suicidal Planning, No Homicidal Ideation, No Paranoid Ideation - Sensorium Experiencing Hallucinations: No, Sensorium is Clear Type of Hallucinations: Visual: No, Auditory: No, Command: No - Level of Consciousness Level of Consciousness: Alert Orientation: Yes Intact, Yes Orientated to Time, Yes Orientated to Place, Yes Orientated to Person - Impulse Control Impulse Control: Intact - Insight and Judgement Insight and Judgement: Fair - Group Participation Particating in Group Activities: Yes - Medication Management Medication Management Adherence: Yes - Additional Observations Comments: Sreedhar appears to be well groomed. Her eye contact has lessened in intensity. Latencies in speech are also reduced and she is aware of them. There has been significant improvement, yet she remains impaired. Nevertheless, she remains on topic in conversation. She is not obviously responding to internal stimuli and denies it. She relates in a strange way, as if she is carefully choosing her words. Her eye contact is less intense. She is irritable, but she also points out she's been here three weeks and wants to leave. Assessment - Assessment Merits Inpatient Hospitalization: For Stabilization, For Discharge Planning Inpatient DSM-V Dx: F31.2 Clinical Impression: 22-y-o woman with a history of psychosis and mood disorder who came to the hospital in a disorganized state. She is adherent to medication schedule, and is making progress today. Sreedhar has been here since February 08. She appears to be improving and had a successful family meeting. She is irritable and unhappy about being in the hospital, but she brightens considerably when told she can go home . Plan - Plan Treatment Plan: Name: SREEDHAR MUKHERJEE Birthdate: 1995 [id number] Medications: Current Medications Acetaminophen (Tylenol Tab*) 325 mg PO Q6H PRN PRN Reason: PAIN OR TEMPERATURE Last Admin: 03/05/18 08:58 Dose: 325 mg Al Hydrox/Mg Hydrox/Simethicone (Maalox Plus*) 30 ml PO Q4H PRN PRN Reason: INDIGESTION Diphenhydramine HCl (Benadryl Po*) 50 mg PO Q6H PRN PRN Reason: AGITATION Last Admin: 03/03/18 11:53 Dose: 50 mg Divalproex Sodium (Depakote Dr Tab(*)) 500 mg PO BEDTIME [facility] Last Admin: 03/04/18 21:19 Dose: 500 mg Divalproex Sodium (Depakote Dr Tab(*)) 250 mg PO BEDTIME [facility] Last Admin: 03/04/18 21:19 Dose: 250 mg Docusate Sodium (Colace Cap*) 100 mg PO DAILY [facility] Last Admin: 03/05/18 09:00 Dose: Not Given Gabapentin (Neurontin Cap(*)) 800 mg PO BID [facility] Last Admin: 03/05/18 08:57 Dose: 800 mg Haloperidol (Haldol Tab*) 5 mg PO Q6H PRN PRN Reason: AGITATION Last Admin: 02/11/18 07:46 Dose: 5 mg Lactobacillus Rhamnosus (Lactobacillus Acidophilus*) 1 tab PO BID [facility] Last Admin: 03/05/18 08:57 Dose: 1 tab Lorazepam (Ativan Tab(*)) 2 mg PO Q6H PRN PRN Reason: AGITATION Last Admin: 03/04/18 15:22 Dose: 2 mg Lorazepam (Ativan Tab(*)) 1 mg PO Q4H PRN PRN Reason: ANXIETY Last Admin: 03/03/18 14:17 Dose: 1 mg Multivitamins (Theragran Tab*) 1 tab PO DAILY [facility] Last Admin: 03/05/18 08:57 Dose: 1 tab Nicotine (Nicotine Inhaler*) 10 mg INH Q2H PRN PRN Reason: CRAVINGS Last Admin: 03/05/18 09:41 Dose: 10 mg Nicotine Polacrilex (Nicotine Gum*) 2 mg PO Q2H PRN PRN Reason: CRAVINGS Last Admin: 03/05/18 11:41 Dose: 2 mg Olanzapine (Zyprexa *Odt*) 10 mg PO BID [facility] Last Admin: 03/05/18 08:57 Dose: 10 mg - Discharge Plan Discharge Plan: Outpatient Follow Up Outpatient Program: [facility] Additional Comments: Sreedhar will remain on the BSU and improve in the stability of mood and behavior. Her medication was changed to Zyprexa Zydis 10 mg both at bedtime and in the morning (this is a 5 mg increase on Sunday the ). Depakote will remain at 750 at bedtime. Continued effort to encourage Sreedhar to take her medications has been attempted. Upon discharge, Sreedhar's Depakote will be reduced to 500 mg, as I agreed to this on the first week. She will be discharged .
[2018-03-05] MEDS: LORazepam TAB(*) 1 MG PO PRN (14:19)
[2018-03-05] MEDS: Divalproex DR TAB(*) 250 MG PO SCH (21:11)
[2018-03-05] MEDS: Divalproex DR TAB(*) 500 MG PO SCH (21:15)
[2018-03-06] MEDS: diPHENhydraMINE PO* 50 MG PO PRN (01:49)
[2018-03-06] MEDS: Docusate CAP* 100 MG PO SCH (09:22)
[2018-03-06] MEDS: Gabapentin CAP(*) 400 MG PO SCH ×2 (09:24→21:40)
[2018-03-06] MEDS: Vitamin THERAPEUTIC TAB PO SCH (09:24)
[2018-03-06] MEDS: Lactobacillus Acidophilus* 1 TAB PO SCH ×2 (09:25→21:40)
[2018-03-06] MEDS: OLANzapine TAB*ODT* 10 MG TAB PO SCH ×2 (09:25→21:40)
[2018-03-06] MEDS: Acetaminophen TAB* 325 MG PO PRN (09:26)
[2018-03-06] MEDS: Nicotine GUM* 2 MG PO PRN (09:33)
[2018-03-06] MEDS: Nicotine Inhaler* 10 MG AMP INH PRN (09:33)
[2018-03-06] MEDS: Divalproex DR TAB(*) 250 MG PO SCH (21:40)
[2018-03-06] MEDS: Divalproex DR TAB(*) 500 MG PO SCH (21:40)
[2018-03-06] MEDS: LORazepam TAB(*) 1 MG PO PRN (22:12)
[2018-03-07] MEDS: diPHENhydraMINE PO* 50 MG PO PRN (05:28)
[2018-03-07] MEDS: Gabapentin CAP(*) 400 MG PO SCH (08:51)
[2018-03-07] MEDS: OLANzapine TAB*ODT* 10 MG TAB PO SCH (08:51)
[2018-03-07] MEDS: Vitamin THERAPEUTIC TAB PO SCH (08:51)
[2018-03-07] MEDS: Docusate CAP* 100 MG PO SCH (08:52)
[2018-03-07] MEDS: Lactobacillus Acidophilus* 1 TAB PO SCH (08:52)
[2018-03-07 11:50] VITALS: BP 129/66
[2018-03-07] MEDS: LORazepam TAB(*) 1 MG PO PRN (13:17)
--- NOTE | 2018-03-08 13:06 | DS ---
CC: [facility] * DISCHARGE SUMMARY: DATE OF ADMISSION: 02/08/18 DATE OF DISCHARGE: 03/07/18 PROVIDER: Tri Shepherd NP. PSYCHIATRY SUPERVISING PHYSICIAN: Lewis Lanza MD.* (DICTATED BY TRI SHEPHERD NP) DIAGNOSES: [place] I: Schizoaffective disorder, bipolar type. [place] II: Cluster B traits. CONDITION AT THE TIME OF DISCHARGE: Improved. Psychiatrically cleared, stable. Participating in groups, social with peers at times. Mother was agreeable to discharge. She has done well here psychiatrically over time. She tolerated Zyprexa reasonably well. She agreed to attend [facility]. MENTAL STATUS EXAM AT THE TIME OF DISCHARGE: Marisa is calm, cooperative, and makes good eye contact. She is alert and oriented x3. Her grooming is good. Her speech pace is normal. Her thought processes are logical. She is no longer psychotic. She is not delusional. Denies auditory and visual hallucinations. Denies suicidal and homicidal ideation. Insight and judgement are fair to good. Impulse control is good. She is willing to follow up and is urged to see provider of some kind every month. DISCHARGE INSTRUCTIONS: A. Medications: 1. Depakote 500 mg daily. 2. Gabapentin 800 mg daily. 3. Benadryl 50 mg q. 6 hours p.r.n. anxiety. 4. Docusate 100 mg capsule. 5. Lactobacillus acidophilus 1 tab twice a day. 6. Lorazepam 1 mg tablet p.o. q. 8 hours take 1 up to twice a day dispensed 15. 7. Nicotine patch 14 mg. 8. Nicotine gum 2 mg. 9. Olanzapine 10 mg twice a day. 10. Therapeutic vitamin 1 tab daily. B. Diet: Regular. C. Activities: As tolerated. Marisa is a smoker. She has access to the smokers quitline. She also has nicotine replacement therapy. There are no studies pending at the time of discharge. D. Followup care: She has appointments with [facility], with [facility], and with [facility]. E. Substance abuse followup is not indicated. HOSPITAL COURSE: A. Chief complaint: "You have to take to my mom and go away. " Marisa was brought to the emergency department by law enforcement after they along with the SWAT Team showed up to her apartment following a distress call from [facility]'s mother, who reported that she was threatening to kill other people and had knife in her hands. She initially medicated herself, but later was brought to the emergency department where she was agitated and aggressive requiring IM injections. Since her transfer to the unit, she required multiple stat medications, all intramuscular. She has been disorganized, extremely paranoid, jumping on her bed and showing verbal and physical aggression. Multiple attempts to engage her into conversation since this morning were all unsuccessful. A few minutes ago, she was standing up the corner holding herself , shaking her hand, and popping handfuls of salt in her mouth and then drooling. She appears to be very paranoid, getting into the corner of the unit extremely tensed. She refused to take any oral medications and we were forced to call for help from security and they were in the process of giving her 20 mg Geodon IM stat. She through the salt shaker on the floor, stomped it, and broke it, and showing signs of aggression towards other people. Rest of the history is going to be reported from collateral information that were had at that time. B. Psychiatric treatment was rendered: The patient was admitted to the adult behavioral unit and placed on 15-minute checks for safety. [facility] had a very long admission. The first three days went reasonably well. She began to decompensate after that and became extremely psychotic, would not make eye contact, would not speak, or made extremely intense eye contact and would then walk away. She eventually tolerated 20 mg of Zyprexa total as well as gabapentin and Ativan. She is not enthusiastic about taking the Zyprexa, was disappointed to learn that she has for about 10 days been taking 10 mg b.i.d. instead of the 10 and 5 that she thought she was taking. We discussed at length that she will do the best on medication. If she chooses to not to take medications, she needs to do that in concert with her outpatient providers in order to avoid returning to the hospital. She has in the past taken Geodon, Abilify, Haldol, and Invega Sustenna. Her hemoglobin A1c on the 02/09/18 was 5.1. Her triglycerides were 62, cholesterol 150, LDL cholesterol 79, HDL cholesterol 59. We did meet twice with her mother. Her mother is very hesitant to have her back in the community as she feels that Ihotu is not back to her old self. Nutrition consult was entered for her. She is much improved over her most decompensated time. She is no longer psychotic. Her sleep is more normal. Her appetite is normal. She is not having suicidal ideations and she is very interested in going home and being on her own, although she is accepting of her mother's gentle supervision. TRI SHEPHERD, NICOLE [id number]/CPS #: [id number] DANNA
== END 2018-03-07 14:15 | disposition home or self-care (01) | DRG 750 ==
LOC: ED 13:38 → BSU 16:12
PROVIDERS: ADMIT Psychiatry & Neurology Psychiatry; ATTEND Psychiatry & Neurology Psychiatry
PROC: GZHZZZZ Group Psychotherapy (ICD-10-PCS; principal; 2018-02-11)
DX: F25.0 Schizoaffective disorder, bipolar type (principal); R45.850 Homicidal ideations; G89.29 Other chronic pain; B85.0 Pediculosis due to Pediculus humanus capitis; F39 Unspecified mood [affective] disorder; M54.9 Dorsalgia, unspecified; F17.210 Nicotine dependence, cigarettes, uncomplicated; F12.90 Cannabis use, unspecified, uncomplicated; Z78.1 Physical restraint status; Z81.8 Family history of other mental and behavioral disorders; Z72.89 Other problems related to lifestyle; Z88.0 Allergy status to penicillin
CPT/HCPCS: 36415; 80048; 80053; 80061; 80320; 80329; 83036; 83605; 84443; 85025; 90853; 99222; 99231; 99232; 99233; 99238; 99283; A9270-GY; G0480; J1200; J1630; J2060; J3486

== ENCOUNTER 2018-08-15 11:57 | Inpatient (IN) | payer OTHER ==
--- NOTE | 2018-08-15 12:10 | ED ---
Psychiatric Complaint - HPI Summary HPI Summary: Pt is a 23 y/o female brought in by EMS and police on a 945 who presents to the ED c/o mental health symptoms. As per EMS, she called her mother at 3:00 this morning and said she wasnt doing well. Pts mother called the police because she was worried. As per police, pt was hesitant to come to the ED but was not violent. She is not speaking or moving at all. Pt is a level 5 caveat, as she is unwilling to give any history. PMHx schizophrenia, depression, anxiety, bipolar disorder, and substance abuse. - History Of Current Complaint Hx Obtained From: EMS Hx From Patient Unobtainable Due To: Other - Unwilling to give hx Hx Last Menstrual Period: 05/09/17 Onset/Duration: Other - Unknown Aggravating Factor(s): Other - Unknown Alleviating Factor(s): Other - Unknown Related History: Positive For: Prior Psychiatric Issues - Allergies/Home Medications Allergies/Adverse Reactions: Allergies Allergy/AdvReac Type Severity Reaction Status Date / Time Penicillins Allergy Intermediate Rash Verified 02/08/18 18:41 PMH/Surg Hx/FS Hx/Imm Hx Endocrine/Hematology History: Denies: Hx Diabetes Cardiovascular History: Denies: Hx Hypertension, Hx Pacemaker/ICD Respiratory History: Denies: Hx Asthma History: Denies: Hx Renal Disease Musculoskeletal History: Reports: Hx Back Problems - Chronic back pain- no objective functional problems observed Sensory History: Denies: Hx Cataracts, Hx Contacts or Glasses, Hx Eye Injury, Hx Eye Prosthesis, Hx Hearing Aid Opthamlomology History: Denies: Hx Cataracts, Hx Contacts or Glasses, Hx Eye Injury, Hx Eye Prosthesis Psychiatric History: Reports: Hx Anxiety, Hx Depression, Hx Inpatient Treatment , Hx Community Mental Health Tx, Hx Schizophrenia, Hx Bipolar Disorder, Hx Substance Abuse - Marijuana, K2, Other Psychiatric Issues/Disorders Denies: Hx Eating Disorder, Hx Panic Disorder, Hx of Violent Episodes Against Others - Surgical History Surgery Procedure, Year, and Place: None - Immunization History Date of Tetanus Vaccine: unk Date of Influenza Vaccine: unk - Family History Known Family History: Positive: Other - possible schizophrenia and depression to father. Brother -- autism - Social History Alcohol Use: Rare Hx Substance Use: Yes Substance Use Type: Reports: Marijuana, Other - K2 Substance Use Comment - Amount & Last Used: Vague regarding amount and frequency , only acknowledges the use Hx Tobacco Use: Yes Smoking Status (MU): Current Every Day Smoker Type: Cigarettes Amount Used/How Often: 3-4 sig a day Length of Time of Smoking/Using Tobacco: patient has smoked cigarettes within the last 30 days. Have You Smoked in the Last Year: Yes Review of Systems Positive: Other - "not doing well" All Other Systems Reviewed And Are Negative: No Physical Exam - Summary Physical Exam Summary: Appearance: Well appearing, no pain distress, no obvious signs of trauma, no smell of alcohol or marijuana Skin: warm, dry, reflects adequate perfusion Head/face: normal Eyes: EOMI, DENISE ENT: mucous membranes moist Neck: supple, non-tender Respiratory: CTA, breath sounds present Cardiovascular: RRR, pulses symmetrical, no edema Abdomen: non-tender, soft Bowel Sounds: present Musculoskeletal: normal, strength/ROM intact Neuro: normal, sensory motor intact, A&Ox3 Psych: detached, mute, flat affect Triage Information Reviewed: Yes Vital Signs Reviewed: Yes Diagnostics - Laboratory Result Diagrams: 08/15/18 12:34 08/15/18 12:34 Lab Statement: Any lab studies that have been ordered have been reviewed, and results considered in the medical decision making process. - EKG 13:34 Cardiac Rate: NL - 98 bpm EKG Rhythm: Sinus Rhythm ST Segment: Normal Summary of EKG Findings: Nl axis, short SC Re-Evaluation - Re-Evaluation First Eval Re-Evaluation Time: 12:03 Change: Worse Comment: Pt began to swing at the staff. Security was called and pt was restrained. Informed that mother should not be allowed back, since she is physical with the pt. Second Eval Re-Evaluation Time: 13:40 Change: Unchanged Comment: Pt is medically cleared for a MHE. Course/Dx - Course Course Of Treatment: Nurse's note reviewed. Patient with history of schizophrenia/schizoaffective who presents largely mute and not contributing to history. She had episodes of violence where she scratched to nurse's and was kicking at others. She required restraint. She was given Geodon and Ativan intramuscularly. She continued to be very aggressive here and required ketamine sedation. She calmed with this. [facility] and have arranged with the psychiatrist to admit her. She required treatment for her agitation prior to admission however. - Differential Dx/Clinical Impression Differential Diagnosis/HQI/PQRI: Positive: Acute Psychosis, Homicidal Ideation, Homicidal Gesture Provider Diagnosis: Violent behavior, Schizoaffective disorder, bipolar type - Physician Notifications Discussed Care Of Patient With: Lewis Lanza Time Discussed With Above Provider: 14:00 Instructed by Provider To: Other - Dr. Lanza accepts pt for admission. - Critical Care Time Critical Care Time: 30-74 min - CCT is EXCLUSIVE of separately billable procedures. Discharge - Sign-Out/Discharge Documenting (check all that apply): Patient Departure - Admit - Discharge Plan Condition: Fair Disposition: ADMITTED TO [facility] Referrals: Odessa Schafer MD [Primary Care Provider] - - Billing Disposition and Condition Condition: FAIR Disposition: Admitted to [facility] - Attestation Statements Document Initiated by Goldieibe: Yes Documenting Scribe: Megan Feliciano Provider For Whom Scribe is Documenting (Include Credential): Gomez Lo MD Scribe Attestation: Megan Calderón scribed for Gomez Lo MD on 08/15/18 at 1832. Scribe Documentation Reviewed: Yes Provider Attestation: The documentation as recorded by the Megan pastor accurately reflects the service I personally performed and the decisions made by , Gomez Lo MD Status of Scribe Document: Viewed
[2018-08-15] MEDS ORDERED: Ziprasidone IM INJ* 20 MG/ML VIAL IM ONE (12:11)
[2018-08-15] MEDS ORDERED: Sterile Water for Inj* 10 ML ONE (12:21)
[2018-08-15 12:51] LABS: ABS Basophils 0 10^3/ul (0-0.2); ABS Eosinophils 0 10^3/ul (0-0.6); ABS Lymphocytes 1.4 10^3/ul (1.0-4.8); ABS Monocytes 0.5 10^3/ul (0-0.8); ABS Neutrophils 4.1 10^3/ul (1.5-7.7); ABS Nucleated RBC 0 10^3/ul; Eosinophil % 0.7 %; Hematocrit 40 % (35-47); Hemoglobin 13.3 g/dl (12.0-16.0); Lymphocyte % 23.3 %; Mean Corpuscular HGB Conc 33 g/dl (31-36); Mean Corpuscular Hemoglobin 28 pg (27-31); Mean Corpuscular Volume 85 fL (80-97); Mean Platelet Volume 7.7 fL (7.4-10.4); Nucleated Red Blood Cells % 0; Platelet Count 293 10^3/ul (150-450); Red Blood Count 4.77 10^6/ul (4.00-5.40); Red Cell Distribution Width 14 % (10.5-15); White Blood Count 6.1 10^3/ul (3.5-10.8)
[2018-08-15 13:11] LABS: ALT 12 U/L (7-52); AST 13 U/L (13-39); Albumin 4.3 g/dL (3.2-5.2); Albumin/Globulin Ratio 1.5 (1-3); Alkaline Phosphatase 59 U/L (34-104); Anion Gap 7 mmol/L (2-11); BUN/Creatinine Ratio 15.4 (8-20); Blood Urea Nitrogen 12 mg/dL (6-24); CO2 Carbon Dioxide 21 mmol/L (22-32); Calcium 9.3 mg/dL (8.6-10.3); Chloride 105 mmol/L (101-111); EGFR African American 111.7 (>60); EGFR Non-African American 92.4 (>60); Globulin 2.8 g/dL (2-4); Glucose 97 mg/dL (70-100); Sodium 133 mmol/L (135-145); Total Protein 7.1 g/dL (6.4-8.9)
[2018-08-15 13:17] LABS: HCG Pregnancy < 0.60 mIU/mL
[2018-08-15 13:28] LABS: Acetaminophen < 15 mcg/mL; Alcohol < 10 mg/dL (<10); Salicylate < 2.50 mg/dL (<30)
[2018-08-15 13:42] LABS: TSH (Thyroid Stimulating Horm) 0.92 mcIU/mL (0.34-5.60)
[2018-08-15] MEDS ORDERED: LORazepam TAB(*) 1 MG PO ONE (14:19)
[2018-08-15] MEDS ORDERED: Al Hydrox/Mg Hydrox/Simet LIQ* 30 ML UDC PO PRN (14:27)
[2018-08-15] MEDS ORDERED: LORazepam INJ* 2 MG/ML 1 ML VIAL ONE (14:35)
[2018-08-15] MEDS ORDERED: LORazepam INJ* 2 MG/ML 1 ML VIAL IM ONE (14:35)
[2018-08-15] MEDS ORDERED: KETAMINE HCL* 50 MG/ML 10 ML VIAL ONE (14:53)
[2018-08-15] MEDS ORDERED: KETAMINE HCL* 50 MG/ML 10 ML VIAL IM ONE (15:10)
[2018-08-15] MEDS: Gabapentin CAP(*) 400 MG PO SCH ×2 (22:49→23:19)
[2018-08-15] MEDS: OLANzapine TAB* 10 MG PO SCH (23:01)
[2018-08-15] MEDS: Divalproex DR TAB(*) 500 MG PO SCH (23:01)
[2018-08-16] MEDS: LORazepam TAB(*) 1 MG PO PRN ×3 (01:17→23:46)
[2018-08-16] MEDS ORDERED: Mouth Piece, Nicotine* 1 EACH CARTRIDGE ONE (07:20)
[2018-08-16 09:06] VITALS: BP 139/79
[2018-08-16] MEDS: Gabapentin CAP(*) 400 MG PO SCH ×2 (09:40→20:24)
[2018-08-16] MEDS: Docusate CAP* 100 MG PO SCH (09:41)
[2018-08-16] MEDS: Nicotine PATCH 14 MG/24 HR* PATCH TRANSDERM SCH (09:41)
[2018-08-16] MEDS: Divalproex DR TAB(*) 500 MG PO SCH ×2 (09:41→20:24)
[2018-08-16] MEDS: OLANzapine TAB* 10 MG PO SCH ×2 (09:41→20:29)
[2018-08-16] MEDS: Vitamin THERAPEUTIC TAB PO SCH (09:42)
[2018-08-16] MEDS ORDERED: hydrOXYzine HCL TAB* 50 MG PO PRN (11:42)
[2018-08-16 12:19] LABS: Cholesterol 142 mg/dL; HDL Cholesterol 57.4 mg/dL; LDL Cholesterol 70 mg/dL; Triglycerides 71 mg/dL
[2018-08-16] MEDS ORDERED: risperiDONE-M * 1 MG TAB.ORADIS PO PRN (14:26)
--- NOTE | 2018-08-16 19:38 | HP ---
HISTORY AND PHYSICAL: DATE OF ADMISSION: 08/15/18 PROVIDER: Tri Shepherd NP, Psychiatry. SUPERVISING PHYSICIAN: Lewis Lanza MD.* (DICTATED BY TRI SHEPHERD NP ) JUSTIFICATION FOR ADMISSION: The patient is in need of 24-hour supervision and care secondary to gross disorganization. CHIEF COMPLAINT: "I woke up at 3 in the morning with Sophie within my apartment." HISTORY OF PRESENT ILLNESS: The patient is a 23-year-old single [place] Indian female with a history of schizoaffective disorder, who arrived brought in by ambulance and is here on a 9.39 status with her complaining of not doing well. She is uncooperative upon arrival and refuses to speak. She is presenting with symptoms of schizoaffective disorder. According to collateral, Marisa called her mother at 3 in the morning and reported that she was not doing well. The mom called the police for Sophie, and police were sent to roll picker Marisa who indeed was not doing well. According to collateral, Marisa has been in her apartment for several weeks, becoming increasingly ill. The clinic staff and law enforcement as well as the mobile crisis team have been trying to get Marisa out of her apartment. She was found, after having to force the door, with several packed bags, some of which contained knives, that she was clutching while she was lying in bed. Her mother had to forcibly take the bags out of her hands in order for law enforcement to take Marisa to the hospital. Upon arrival at the hospital, Marisa was restrained twice and she was agitated and uncooperative and violent in the emergency department, swinging at staff and scratching one of them with her nails. She, according to her lab results, is not taking her Depakote (a VA level of 0.15). She states that she takes olanzapine 10 mg in the morning only and she takes Depakote 500 as needed. She does not have insight into this being a bad idea; it is clearly not holding her and she is still again quite ill. PAST PSYCHIATRIC HISTORY: Marisa's history is remarkable for many previous psychiatric hospitalizations. Most of these have occurred beginning in 2014 and steadily continuing in 2015 when she had most of the admissions, less frequently in 2016, and she has been hospitalized once before in 2018 in February. PAST MEDICAL HISTORY: Remarkable for a sprain of her medial collateral ligament in her leg on the left. SUBSTANCE ABUSE HISTORY: Marisa has an extensive history of smoking marijuana and K2. She denies drinking alcohol. She has declined to give a urine sample for us to have a drug screen. HOME MEDICATIONS: At this point were olanzapine 10, Depakote 500 p.r.n., alprazolam, lactobacillus, atomoxetine and several others that are not contributory to her psychiatric presentation. ALLERGIES: PENICILLIN with a reaction of rash. FAMILY HISTORY: The patient was born in [place] and moved to the [facility] when she was a child. She grew up in the [facility]. After finishing school, she went to college; however, she could not continue long because of repeated hospitalizations for mental health reasons. She has 2 sisters and a younger brother. She is the oldest of all the siblings. There is no known history of mental illness in her family members, although there are hints of it from her father who is somewhat estranged. PERSONAL AND SOCIAL HISTORY: Marisa lives in a apartment by herself and was followed by the ACT team. She is currently seeing [facility] , specifically Dr. Maddox. REVIEW OF SYMPTOMS: The patient reports feeling fatigued due to having been sedated in the emergency room. She denies shortness of breath, heat or cold intolerance, chest pain or abdominal pain. She denies neurological symptoms. She denies fevers. She denies changes in weight. PHYSICAL EXAMINATION VITAL SIGNS: On 08/16/18 at 0855, temperature is 98 degrees, pulse 123, respirations 18, O2 sat 100%, blood pressure 139/79. For further exam data, please see emergency department records. LABORATORY DATA: On 08/15/18, all data are within normal limits. Her sickle cell strain is negative. Sodium is low at 133. Carbon dioxide is low at 21. Toxicology report shows that valproic acid level is low at 15. She was unwilling to provide a urine sample. MENTAL STATUS EXAMINATION: Physical description: This is a woman who is short , who is wearing a covering over her hair. She is quite sleepy and her eyes continue to close while we talked. She is calm. She is irritable. Her speech is normal rate and tone. Her volume is very soft and she begins to slur. She is dysphoric. Her affect is constricted. Her thought process is slow. Her though content appears to be free of delusions. She does not endorse homicidality or suicidality. Hallucinations are not obvious. Her insight is poor. Her judgement is poor. She is alert and awake but very very tired. DIAGNOSES: [place] I: Schizoaffective disorder. [place] II: Deferred. [place] III: Medial collateral ligament damage on the left knee. IMPRESSION: This is a 23-year-old [place] Indian woman with a known history of schizoaffective disorder and an extensive history of substance use, who is being rehospitalized due to psychosis and disorganization. PLAN: The patient is admitted to the adult behavioral health unit and placed on q.15-minute checks for her own safety. She is encouraged to participate in supportive milieu, individual and group therapies. Estimated length of stay is 5 to 7 days. We will titrate medications to efficacy and monitor for mood and though content. Discharge planning will include family involvement and outpatient providers. TRI SHEPHERD, NICOLE [id number]/CPS #: [id number] DANNA
[2018-08-16] MEDS: Nicotine GUM* 2 MG PO PRN (20:26)
[2018-08-16] MEDS: Nicotine Patch Removal NOTE PATCH OFF SCH (20:29)
[2018-08-16] MEDS: hydrOXYzine HCL TAB* 50 MG PO PRN (23:47)
[2018-08-17] MEDS: Vitamin THERAPEUTIC TAB PO SCH (07:39)
[2018-08-17] MEDS: Acetaminophen TAB* 325 MG PO PRN (07:39)
[2018-08-17] MEDS: Gabapentin CAP(*) 400 MG PO SCH ×3 (07:40→22:30)
[2018-08-17] MEDS: OLANzapine TAB* 10 MG PO SCH ×2 (07:40→21:56)
[2018-08-17] MEDS: Docusate CAP* 100 MG PO SCH (07:40)
[2018-08-17] MEDS: Divalproex DR TAB(*) 500 MG PO SCH ×2 (07:43→21:56)
[2018-08-17] MEDS: Nicotine PATCH 14 MG/24 HR* PATCH TRANSDERM SCH (07:43)
[2018-08-17] MEDS: Nicotine GUM* 2 MG PO PRN ×2 (15:26→19:52)
[2018-08-17] MEDS: LORazepam TAB(*) 1 MG PO PRN ×2 (15:26→22:29)
[2018-08-17] MEDS: Nicotine Patch Removal NOTE PATCH OFF SCH (21:56)
[2018-08-17] MEDS: hydrOXYzine HCL TAB* 50 MG PO PRN (23:43)
[2018-08-18] MEDS: hydrOXYzine HCL TAB* 50 MG PO PRN (06:41)
[2018-08-18] MEDS: Gabapentin CAP(*) 400 MG PO SCH (08:45)
[2018-08-18] MEDS: Divalproex DR TAB(*) 500 MG PO SCH (08:47)
[2018-08-18] MEDS: Docusate CAP* 100 MG PO SCH (08:47)
[2018-08-18] MEDS: Vitamin THERAPEUTIC TAB PO SCH (08:48)
[2018-08-18] MEDS: OLANzapine TAB* 10 MG PO SCH (08:48)
[2018-08-18] MEDS: Nicotine PATCH 14 MG/24 HR* PATCH TRANSDERM SCH (08:49)
[2018-08-18] MEDS: LORazepam TAB(*) 1 MG PO PRN (10:04)
[2018-08-18] MEDS ORDERED: Olanzapine INJ(NF) 10 MG VIAL IM ONE (12:00)
[2018-08-18] MEDS: Nicotine GUM* 2 MG PO PRN (13:11)
--- NOTE | 2018-08-18 14:00 | PN ---
Subjective - Subjective Date of Service: 08/18/18 Service Type: 91468 Hosp care 15 min low complexity Subjective: Sreedhar is seen in weekend coverage for NPP, [facility]. The patient has been selectively adherent with medications, skipping doses of olanzapine in particular. She is stalking various peers on the unit and is intrusive and threatening. She denies SI or HI but is paranoid with little insight. "That's why I hate coming here...it's a setup." Objective - Appearance Appearance: Well Developed/Nourished Dysmorphic Features: No Hygiene: Normal Grooming: Disheveled - Behavior Psychomotor Activities: Abnormal-Increased Exhibits Abnormal Movement: No - Attitude and Relatedness Attitude and Relatedness: Psychotically Related Eye Contact: Fair - Speech Quality: Pressured Latencies: Long Quantity: Terse - Mood Patient's Decription of Mood: "Terrible" - Affect Observed Affect: Labile Affect Consistent with: Dysphoria - Thought Process Patient's Thought Process: Disorganized Thought Content: Yes Paranoid Ideation, No Passive Wish, No Suicidal Planning, No Homicidal Ideation - Sensorium Experiencing Hallucinations: No, Sensorium is Clear Type of Hallucinations: Visual: No, Auditory: No, Command: No - Level of Consciousness Level of Consciousness: Agitated Orientation: Yes Intact, Yes Orientated to Time, Yes Orientated to Place, Yes Orientated to Person - Impulse Control Impulse Control: Poor - Insight and Judgement Insight and Judgement: Impaired - Group Participation Particating in Group Activities: Yes - Medication Management Medication Management Adherence: Yes Assessment - Assessment Merits Inpatient Hospitalization: For Immediate Safety, For Stabilization Inpatient DSM-V Dx: F25.0 Clinical Impression: 23 y.o. single, born female with a history of schizoaffective disorder arrives via 9.41 due to agitated, threatening behavior at the [facility], with whom she has an apartment, apparently in the context of poor adherence with medication. Plan - Plan Treatment Plan: Name: SREEDHAR MUKHERJEE Birthdate: 1995 [id number] Continue Depakote and olanzapine therapies. Patient needs further inpatient level care. Continued Medication Management: Continue Outpt Medication Medications: Current Medications Acetaminophen (Tylenol Tab*) 650 mg PO Q4H PRN PRN Reason: for pain; or Temp >101 F Last Admin: 08/17/18 07:39 Dose: 650 mg Al Hydrox/Mg Hydrox/Simethicone (Maalox Plus*) 30 ml PO Q4H PRN PRN Reason: INDIGESTION Divalproex Sodium (Depakote Dr Tab(*)) 500 mg PO BEDTIME [facility] Last Admin: 08/17/18 21:56 Dose: Not Given Divalproex Sodium (Depakote Dr Tab(*)) 500 mg PO DAILY [facility] Last Admin: 08/18/18 08:47 Dose: 500 mg Docusate Sodium (Colace Cap*) 100 mg PO DAILY [facility] Last Admin: 08/18/18 08:47 Dose: 100 mg Gabapentin (Neurontin Cap(*)) 800 mg PO BID [facility] Last Admin: 08/18/18 08:45 Dose: 800 mg Hydroxyzine HCl (Atarax Tab*) 25 mg PO Q4H PRN PRN Reason: anxiety/insomnia Last Admin: 08/18/18 06:41 Dose: 25 mg Lorazepam (Ativan Tab(*)) 1 mg PO Q8H PRN PRN Reason: anxiety and agitation Last Admin: 08/18/18 10:04 Dose: 1 mg Multivitamins (Theragran Tab*) 1 tab PO DAILY [facility] Last Admin: 08/18/18 08:48 Dose: 1 tab Nicotine (Nicotine Inhaler*) 10 mg INH Q2H PRN PRN Reason: CRAVING Nicotine (Nicotine Patch 14 Mg/24 Hr*) 1 patch TRANSDERM DAILY [facility] Last Admin: 08/18/18 08:49 Dose: Not Given Nicotine Polacrilex (Nicotine Gum*) 2 mg PO Q2H PRN PRN Reason: CRAVINGS Last Admin: 08/18/18 13:11 Dose: 2 mg Olanzapine (Zyprexa Tab*) 10 mg PO BID [facility] Last Admin: 08/18/18 08:48 Dose: Not Given Pharmacy Profile Note (Nicotine Patch Removal Note*) 1 note PATCH OFF 2100 [facility] Last Admin: 08/17/18 21:56 Dose: Not Given Risperidone (Risperdal-M Tab *) 2 mg PO Q6H PRN; Protocol PRN Reason: AGITATION - Discharge Plan Discharge Plan: Inpatient Hospitalization Lab Results - Lab Results Lab Results: 08/15/18 08/15/18 08/15/18 12:34 12:34 12:34 WBC 6.1 RBC 4.77 Hgb 13.3 Hct 40 MCV 85 MCH 28 MCHC 33 RDW 14 Plt Count 293 MPV 7.7 Neut % (Auto) 67.4 Lymph % (Auto) 23.3 Forest % (Auto) 8.2 Eos % (Auto) 0.7 Baso % (Auto) 0.4 Absolute Neuts (auto) 4.1 Absolute Lymphs (auto) 1.4 Absolute Monos (auto) 0.5 Absolute Eos (auto) 0 Absolute Basos (auto) 0 Absolute Nucleated RBC 0 Nucleated RBC % 0 Sickle Cell Screen Negative Sodium 133 L Potassium 4.0 Chloride 105 Carbon Dioxide 21 L Anion Gap 7 BUN 12 Creatinine 0.78 Est GFR ( Amer) 111.7 Est GFR (Non-Af Amer) 92.4 BUN/Creatinine Ratio 15.4 Glucose 97 Hemoglobin A1c 5.0 Calcium 9.3 Total Bilirubin 0.60 AST 13 ALT 12 Alkaline Phosphatase 59 Total Protein 7.1 Albumin 4.3 Globulin 2.8 Albumin/Globulin Ratio 1.5 Triglycerides 71 Cholesterol 142 LDL Cholesterol 70 HDL Cholesterol 57.4 TSH 0.92 Beta HCG, Quant < 0.60 Salicylates < 2.50 Acetaminophen < 15 Valproic Acid 15.0 L Serum Alcohol < 10
--- NOTE | 2018-08-18 15:28 | PROCNOTE ---
- Assessment for Patient Restraint Evaluation of the Patient's Immediate Situation: Pt was noted to be agitated-please see Dr. Lanza's report and received 10 mg IM Olanzapine ordered by psychiatry service. Patient's Reaction to Intervention: Pt is calm, early abusable, but appear sot be sleeping, minimally verbal Patient's Medication and Behavioral Condition: See DR. Lanza's note re: pt's behavior today. Evaluate Need for Continued Restraint: Terminate
[2018-08-18] MEDS ORDERED: diPHENhydraMINE PO* 50 MG PO ONE (17:58)
[2018-08-18] MEDS ORDERED: Haloperidol INJ IV/IM* 5 MG/ML AMP IM ONE (17:58)
[2018-08-18] MEDS ORDERED: LORazepam INJ* 2 MG/ML 1 ML VIAL IM ONE (17:58)
[2018-08-18] MEDS ORDERED: LORazepam INJ* 2 MG/ML 1 ML VIAL ONE (18:05)
[2018-08-18] MEDS ORDERED: diPHENhydraMINE PO* 50 MG ONE (18:05)
[2018-08-18] MEDS ORDERED: LORazepam TAB(*) 1 MG ONE (18:05)
[2018-08-18] MEDS ORDERED: Haloperidol INJ IV/IM* 5 MG/ML AMP ONE (18:06)
[2018-08-18] MEDS ORDERED: Haloperidol TAB* 5 MG ONE (18:06)
[2018-08-18] MEDS: Nicotine Patch Removal NOTE PATCH OFF SCH (22:26)
[2018-08-19] MEDS: Divalproex DR TAB(*) 500 MG PO SCH ×5 (00:29→21:04)
[2018-08-19] MEDS: Gabapentin CAP(*) 400 MG PO SCH ×4 (00:29→20:31)
[2018-08-19] MEDS: OLANzapine TAB* 10 MG PO SCH ×4 (00:30→20:32)
[2018-08-19] MEDS: Nicotine GUM* 2 MG PO PRN ×4 (09:47→23:19)
[2018-08-19] MEDS: Vitamin THERAPEUTIC TAB PO SCH (09:47)
[2018-08-19] MEDS: Nicotine Inhaler* 10 MG AMP INH PRN ×3 (09:47→21:04)
[2018-08-19] MEDS: Nicotine PATCH 14 MG/24 HR* PATCH TRANSDERM SCH (09:49)
[2018-08-19] MEDS: Docusate CAP* 100 MG PO SCH (09:56)
[2018-08-19] MEDS: Acetaminophen TAB* 325 MG PO PRN (10:57)
--- NOTE | 2018-08-19 10:57 | PN ---
Subjective - Subjective Date of Service: 08/19/18 Service Type: [id number] Hosp care 15 min low complexity Subjective: I spoke to Sreedhar this morning regarding her negative behaviors over the weekend and the treatment team's understanding of it. I attempted to discuss her selective taking of medications as well as her targeting of individual peers as undesirable behaviors and that her continued similar behavior would result in her being referred [facility]. Sreedhar did not respond to me verbally. She simply stared at me. When I attempted to confirm that she heard me, she continued to stare. When I walked away, she got up and went back to sitting with peers. She did request ibuprofen, which was ordered. She would not state where her pain was or at what number she rated it. Her behavior over the weekend as well as this morning has warranted constant observations while around other peers. Objective - Appearance Appearance: Healthy Appearing Dysmorphic Features: No Hygiene: Normal Grooming: Well Kept - Behavior Psychomotor Activities: Normal Exhibits Abnormal Movement: No - Attitude and Relatedness Attitude and Relatedness: Psychotically Related Eye Contact: Good - Mood Patient's Decription of Mood: Silent - Affect Observed Affect: Constricted Affect Consistent with: Dysphoria - Thought Process Thought Content: Yes Paranoid Ideation - Level of Consciousness Level of Consciousness: Alert Orientation: Yes Intact, Yes Orientated to Time, Yes Orientated to Place, Yes Orientated to Person - Impulse Control Impulse Control: Impaired - Insight and Judgement Insight and Judgement: Impaired - Medication Management Medication Management Adherence: Partial Assessment - Assessment Merits Inpatient Hospitalization: For Immediate Safety Inpatient DSM-V Dx: F25.0 Clinical Impression: 23 y.o. single, born female with a history of schizoaffective disorder arrives via .41 due to agitated, threatening behavior at the [facility], with whom she has an apartment, apparently in the context of poor adherence with medication. Plan - Plan Treatment Plan: Name: SREEDHAR MUKHERJEE Birthdate: 1995 [id number] Continue Depakote and olanzapine therapies. Patient needs further inpatient level care. Medications: Current Medications Acetaminophen (Tylenol Tab*) 650 mg PO Q4H PRN PRN Reason: for pain; or Temp >101 F Last Admin: 08/17/18 07:39 Dose: 650 mg Al Hydrox/Mg Hydrox/Simethicone (Maalox Plus*) 30 ml PO Q4H PRN PRN Reason: INDIGESTION Divalproex Sodium (Depakote Dr Tab(*)) 500 mg PO BEDTIME [facility] Last Admin: 08/19/18 00:29 Dose: 500 mg Divalproex Sodium (Depakote Dr Tab(*)) 500 mg PO DAILY [facility] Last Admin: 08/19/18 09:56 Dose: Not Given Docusate Sodium (Colace Cap*) 100 mg PO DAILY [facility] Last Admin: 08/19/18 09:56 Dose: Not Given Gabapentin (Neurontin Cap(*)) 800 mg PO BID [facility] Last Admin: 08/19/18 09:56 Dose: Not Given Hydroxyzine HCl (Atarax Tab*) 25 mg PO Q4H PRN PRN Reason: anxiety/insomnia Last Admin: 08/18/18 06:41 Dose: 25 mg Lorazepam (Ativan Tab(*)) 1 mg PO Q8H PRN PRN Reason: anxiety and agitation Last Admin: 08/18/18 10:04 Dose: 1 mg Multivitamins (Theragran Tab*) 1 tab PO DAILY [facility] Last Admin: 08/19/18 09:47 Dose: 1 tab Nicotine (Nicotine Inhaler*) 10 mg INH Q2H PRN PRN Reason: CRAVING Last Admin: 08/19/18 09:47 Dose: 10 mg Nicotine (Nicotine Patch 14 Mg/24 Hr*) 1 patch TRANSDERM DAILY [facility] Last Admin: 08/19/18 09:49 Dose: Not Given Nicotine Polacrilex (Nicotine Gum*) 2 mg PO Q2H PRN PRN Reason: CRAVINGS Last Admin: 08/19/18 09:47 Dose: 2 mg Olanzapine (Zyprexa Tab*) 10 mg PO BID [facility] Last Admin: 08/19/18 09:49 Dose: Not Given Pharmacy Profile Note (Nicotine Patch Removal Note*) 1 note PATCH OFF 2100 [facility] Last Admin: 08/18/18 22:26 Dose: Not Given Risperidone (Risperdal-M Tab *) 2 mg PO Q6H PRN; Protocol PRN Reason: AGITATION - Discharge Plan Discharge Plan: Consider Longer Term Tx Additional Comments: Sreedhar is not complying with treatment recommendations and not communicating with staff. At this time, her presentation [facility]. She has been interviewed by other providers.
[2018-08-19] MEDS ORDERED: Ibuprofen TAB* 600 MG ONE (13:51)
[2018-08-19] MEDS: Ibuprofen TAB* 600 MG PO PRN (13:55)
[2018-08-19] MEDS: LORazepam TAB(*) 1 MG PO PRN (13:55)
[2018-08-19] MEDS: Nicotine Patch Removal NOTE PATCH OFF SCH (20:59)
[2018-08-20] MEDS: Nicotine GUM* 2 MG PO PRN ×4 (02:30→22:06)
[2018-08-20] MEDS: Nicotine Inhaler* 10 MG AMP INH PRN ×2 (06:37→18:37)
[2018-08-20] MEDS: Gabapentin CAP(*) 400 MG PO SCH ×2 (08:14→22:50)
[2018-08-20] MEDS: Divalproex DR TAB(*) 500 MG PO SCH ×2 (08:14→22:50)
[2018-08-20] MEDS: Vitamin THERAPEUTIC TAB PO SCH (08:14)
[2018-08-20] MEDS: Nicotine PATCH 14 MG/24 HR* PATCH TRANSDERM SCH (08:18)
[2018-08-20] MEDS: Docusate CAP* 100 MG PO SCH (08:18)
[2018-08-20] MEDS: OLANzapine TAB* 10 MG PO SCH (08:19)
[2018-08-20] MEDS: LORazepam TAB(*) 1 MG PO PRN (12:57)
--- NOTE | 2018-08-20 14:42 | PN ---
Subjective - Subjective Date of Service: 08/20/18 Service Type: [id number] Hosp care 15 min low complexity Subjective: Sreedhar has been seclusive to her room for the most part. She continues staring and not responding to people. Her behavior is disorganized and odd, even hostile. For example, she requested a PRN, took it from the nurse who had just explained the importance of following instructions and being reasonable, dropped it into her pitcher of drink, and walked away. Objective - Appearance Appearance: Healthy Appearing Dysmorphic Features: No Hygiene: Normal Grooming: Well Kept - Behavior Psychomotor Activities: Normal Exhibits Abnormal Movement: No - Attitude and Relatedness Attitude and Relatedness: Psychotically Related Eye Contact: Fair - Speech Quantity: Terse - Mood Patient's Decription of Mood: silent - Affect Observed Affect: Tense Affect Consistent with: Dysphoria - Thought Process Thought Content: Yes Paranoid Ideation - Level of Consciousness Orientation: Yes Orientated to Place - Impulse Control Impulse Control: Impaired - Insight and Judgement Insight and Judgement: Poor - Group Participation Particating in Group Activities: No - Medication Management Medication Management Adherence: Partial Assessment - Assessment Merits Inpatient Hospitalization: For Immediate Safety Inpatient DSM-V Dx: F25.0 Clinical Impression: 23 y.o. single, born female with a history of schizoaffective disorder arrives via .41 due to agitated, threatening behavior at the [facility], with whom she has an apartment, apparently in the context of poor adherence with medication. Plan - Plan Treatment Plan: Name: SREEDHAR MUKHERJEE Birthdate: 1995 [id number] Continue Depakote and olanzapine therapies. Patient needs further inpatient level care. Medications: Current Medications Acetaminophen (Tylenol Tab*) 650 mg PO Q4H PRN PRN Reason: for pain; or Temp >101 F Last Admin: 08/19/18 10:57 Dose: 650 mg Al Hydrox/Mg Hydrox/Simethicone (Maalox Plus*) 30 ml PO Q4H PRN PRN Reason: INDIGESTION Divalproex Sodium (Depakote Dr Tab(*)) 500 mg PO BEDTIME [facility] Last Admin: 08/19/18 21:04 Dose: 500 mg Divalproex Sodium (Depakote Dr Tab(*)) 500 mg PO DAILY [facility] Last Admin: 08/20/18 08:14 Dose: 500 mg Docusate Sodium (Colace Cap*) 100 mg PO DAILY [facility] Last Admin: 08/20/18 08:18 Dose: Not Given Gabapentin (Neurontin Cap(*)) 800 mg PO BID [facility] Last Admin: 08/20/18 08:14 Dose: 400 mg Hydroxyzine HCl (Atarax Tab*) 25 mg PO Q4H PRN PRN Reason: anxiety/insomnia Last Admin: 08/18/18 06:41 Dose: 25 mg Ibuprofen (Motrin Tab*) 600 mg PO Q8H PRN PRN Reason: PAIN Last Admin: 08/19/18 13:55 Dose: 600 mg Lorazepam (Ativan Tab(*)) 1 mg PO Q8H PRN PRN Reason: anxiety and agitation Last Admin: 08/20/18 12:57 Dose: 1 mg Multivitamins (Theragran Tab*) 1 tab PO DAILY [facility] Last Admin: 08/20/18 08:14 Dose: 1 tab Nicotine (Nicotine Inhaler*) 10 mg INH Q2H PRN PRN Reason: CRAVING Last Admin: 08/20/18 06:37 Dose: 10 mg Nicotine (Nicotine Patch 14 Mg/24 Hr*) 1 patch TRANSDERM DAILY [facility] Last Admin: 08/20/18 08:18 Dose: Not Given Nicotine Polacrilex (Nicotine Gum*) 2 mg PO Q2H PRN PRN Reason: CRAVINGS Last Admin: 08/20/18 06:52 Dose: 2 mg Olanzapine (Zyprexa Tab*) 10 mg PO BID [facility] Last Admin: 08/20/18 08:19 Dose: Not Given Pharmacy Profile Note (Nicotine Patch Removal Note*) 1 note PATCH OFF 2100 [facility] Last Admin: 08/19/18 20:59 Dose: Not Given Risperidone (Risperdal-M Tab *) 2 mg PO Q6H PRN; Protocol PRN Reason: AGITATION - Discharge Plan Discharge Plan: Outpatient Follow [facility] Additional Comments: Sreedhar is not complying with treatment recommendations and not communicating with staff. At this time, her presentation warrants [facility] referral. She has been interviewed by other providers. 08/20/18: Sreedhar will be referred to [facility]. Communication with them has begun. Additionally, a plan to give her medications one at a time so that her intake can be better ascertained is in place.
[2018-08-20] MEDS ORDERED: risperiDONE-M * 1 MG TAB.ORADIS PO PRN (15:47)
--- NOTE | 2018-08-20 16:22 | PN ---
Subjective - Subjective Date of Service: 08/20/18 Service Type: [id number] Hosp care 15 min low complexity Subjective: Sreedhar asked to speak to me later in the day. She had been drinking water from a painting activity. She was not stopped in this drinking by requesting that she stopped. In the exchange we shared, she stared at me, spoke to me in an accent, made several incomplete statements, and then said, after drawing on the table with her finger, "I am tired of this hopscotch." I spoke to Dr. Meli Maddox at the [facility] clinic. Dr. Maddox indicated that Sreedhar is frequently not in compliance with her medication regimen, including the time when she had injections of Sustenna. She did not arrive for her appointments. At one point, she was admitted to the hospital while on Invega injections, albeit a 117 mg dose. Assessment - Assessment Inpatient DSM-V Dx: F25.0 Clinical Impression: 23 y.o. single, born female with a history of schizoaffective disorder arrives via 9.41 due to agitated, threatening behavior at the [facility], with whom she has an apartment, apparently in the context of poor adherence with medication. Plan - Plan Treatment Plan: Name: SREEDHAR MUKHERJEE Birthdate: 1995 [id number] Continue Depakote and olanzapine therapies. Patient needs further inpatient level care. Medications: Current Medications Acetaminophen (Tylenol Tab*) 650 mg PO Q4H PRN PRN Reason: for pain; or Temp >101 F Last Admin: 08/19/18 10:57 Dose: 650 mg Al Hydrox/Mg Hydrox/Simethicone (Maalox Plus*) 30 ml PO Q4H PRN PRN Reason: INDIGESTION Divalproex Sodium (Depakote Dr Tab(*)) 500 mg PO BEDTIME [facility] Last Admin: 08/19/18 21:04 Dose: 500 mg Divalproex Sodium (Depakote Dr Tab(*)) 500 mg PO DAILY [facility] Last Admin: 08/20/18 08:14 Dose: 500 mg Docusate Sodium (Colace Cap*) 100 mg PO DAILY [facility] Last Admin: 08/20/18 08:18 Dose: Not Given Gabapentin (Neurontin Cap(*)) 800 mg PO BID [facility] Last Admin: 08/20/18 08:14 Dose: 400 mg Hydroxyzine HCl (Atarax Tab*) 25 mg PO Q4H PRN PRN Reason: anxiety/insomnia Last Admin: 08/18/18 06:41 Dose: 25 mg Ibuprofen (Motrin Tab*) 600 mg PO Q8H PRN PRN Reason: PAIN Last Admin: 08/19/18 13:55 Dose: 600 mg Lorazepam (Ativan Tab(*)) 1 mg PO Q8H PRN PRN Reason: anxiety and agitation Last Admin: 08/20/18 12:57 Dose: 1 mg Multivitamins (Theragran Tab*) 1 tab PO DAILY [facility] Last Admin: 08/20/18 08:14 Dose: 1 tab Nicotine (Nicotine Inhaler*) 10 mg INH Q2H PRN PRN Reason: CRAVING Last Admin: 08/20/18 06:37 Dose: 10 mg Nicotine (Nicotine Patch 14 Mg/24 Hr*) 1 patch TRANSDERM DAILY [facility] Last Admin: 08/20/18 08:18 Dose: Not Given Nicotine Polacrilex (Nicotine Gum*) 2 mg PO Q2H PRN PRN Reason: CRAVINGS Last Admin: 08/20/18 06:52 Dose: 2 mg Olanzapine (Zyprexa Tab*) 10 mg PO BID [facility] Last Admin: 08/20/18 08:19 Dose: Not Given Pharmacy Profile Note (Nicotine Patch Removal Note*) 1 note PATCH OFF 2100 [facility] Last Admin: 08/19/18 20:59 Dose: Not Given Risperidone (Risperdal-M Tab *) 2 mg PO Q6H PRN; Protocol PRN Reason: Agitation/psychosis - Discharge Plan Additional Comments: Sreedhar is not complying with treatment recommendations and not communicating with staff. At this time, her presentation warrants [facility] referral. She has been interviewed by other providers. 08/20/18: Sreedhar will be referred to [facility]. Communication with them has begun. Additionally, a plan to give her medications one at a time so that her intake can be better ascertained is in place.
[2018-08-20] MEDS ORDERED: Mouth Piece, Nicotine* 1 EACH CARTRIDGE ONE (18:36)
[2018-08-20] MEDS: risperiDONE-M * 1 MG TAB.ORADIS PO SCH (22:51)
[2018-08-20] MEDS: Nicotine Patch Removal NOTE PATCH OFF SCH (22:51)
[2018-08-21] MEDS: Nicotine GUM* 2 MG PO PRN ×3 (04:10→13:49)
[2018-08-21] MEDS: Divalproex DR TAB(*) 500 MG PO SCH ×2 (06:15→07:42)
[2018-08-21] MEDS: Gabapentin CAP(*) 400 MG PO SCH ×2 (06:15→07:42)
[2018-08-21] MEDS: risperiDONE-M * 1 MG TAB.ORADIS PO SCH ×2 (07:36→07:42)
[2018-08-21] MEDS: Vitamin THERAPEUTIC TAB PO SCH (07:42)
[2018-08-21] MEDS: Nicotine PATCH 14 MG/24 HR* PATCH TRANSDERM SCH (07:42)
[2018-08-21] MEDS: Docusate CAP* 100 MG PO SCH (07:42)
[2018-08-21] MEDS: Nicotine Inhaler* 10 MG AMP INH PRN (13:47)
[2018-08-21] MEDS ORDERED: Mouth Piece, Nicotine* 1 EACH CARTRIDGE ONE (13:48)
--- NOTE | 2018-08-21 14:11 | PN ---
Subjective - Subjective Date of Service: 08/21/18 Service Type: [id number] Hosp care 15 min low complexity Subjective: Sreedhar was found today at the med window from which she eventually walked away without getting the nicotine replacement she had requested. When I approach her , she meets my gaze and, by not immediately walking away, engages with me. I ask her if she is interested in trying a new medication, clozapine. She stares at me without speaking and then walks away from me. I encourage her to talk to me when she is ready. Objective - Appearance Appearance: Healthy Appearing Dysmorphic Features: No Hygiene: Normal Grooming: Well Kept - Behavior Psychomotor Activities: Normal Exhibits Abnormal Movement: No - Attitude and Relatedness Attitude and Relatedness: Psychotically Related Eye Contact: Good - Speech Quantity: Terse - Mood Patient's Decription of Mood: silent - Affect Observed Affect: Unvariable Affect Consistent with: Dysphoria - Thought Process Thought Content: Yes Paranoid Ideation - Level of Consciousness Level of Consciousness: Agitated Orientation: Yes Intact, Yes Orientated to Time, Yes Orientated to Place, Yes Orientated to Person - Impulse Control Impulse Control: Poor - Insight and Judgement Insight and Judgement: Poor - Group Participation Particating in Group Activities: No - Medication Management Medication Management Adherence: No Assessment - Assessment Merits Inpatient Hospitalization: For Immediate Safety Inpatient DSM-V Dx: F25.0 Clinical Impression: 23 y.o. single, born female with a history of schizoaffective disorder arrives via .41 due to agitated, threatening behavior at the [facility], with whom she has an apartment, apparently in the context of poor adherence with medication. Plan - Plan Treatment Plan: Name: SREEDHAR MUKHERJEE Birthdate: 1995 [id number] Continue Depakote and olanzapine therapies. Patient needs further inpatient level care. Medications: Current Medications Acetaminophen (Tylenol Tab*) 650 mg PO Q4H PRN PRN Reason: for pain; or Temp >101 F Last Admin: 08/19/18 10:57 Dose: 650 mg Al Hydrox/Mg Hydrox/Simethicone (Maalox Plus*) 30 ml PO Q4H PRN PRN Reason: INDIGESTION Divalproex Sodium (Depakote Dr Tab(*)) 500 mg PO BEDTIME [facility] Last Admin: 08/21/18 06:15 Dose: 500 mg Divalproex Sodium (Depakote Dr Tab(*)) 500 mg PO DAILY [facility] Last Admin: 08/21/18 07:42 Dose: Not Given Docusate Sodium (Colace Cap*) 100 mg PO DAILY [facility] Last Admin: 08/21/18 07:42 Dose: Not Given Gabapentin (Neurontin Cap(*)) 800 mg PO BID [facility] Last Admin: 08/21/18 07:42 Dose: Not Given Hydroxyzine HCl (Atarax Tab*) 25 mg PO Q4H PRN PRN Reason: anxiety/insomnia Last Admin: 08/18/18 06:41 Dose: 25 mg Ibuprofen (Motrin Tab*) 600 mg PO Q8H PRN PRN Reason: PAIN Last Admin: 08/19/18 13:55 Dose: 600 mg Lorazepam (Ativan Tab(*)) 1 mg PO Q8H PRN PRN Reason: anxiety and agitation Last Admin: 08/20/18 12:57 Dose: 1 mg Multivitamins (Theragran Tab*) 1 tab PO DAILY [facility] Last Admin: 08/21/18 07:42 Dose: Not Given Nicotine (Nicotine Inhaler*) 10 mg INH Q2H PRN PRN Reason: CRAVING Last Admin: 08/21/18 13:47 Dose: 10 mg Nicotine (Nicotine Patch 14 Mg/24 Hr*) 1 patch TRANSDERM DAILY [facility] Last Admin: 08/21/18 07:42 Dose: Not Given Nicotine Polacrilex (Nicotine Gum*) 2 mg PO Q2H PRN PRN Reason: CRAVINGS Last Admin: 08/21/18 13:49 Dose: 2 mg Pharmacy Profile Note (Nicotine Patch Removal Note*) 1 note PATCH OFF 2099 [facility] Last Admin: 08/20/18 22:51 Dose: Not Given Risperidone (Risperdal-M Tab *) 2 mg PO Q6H PRN; Protocol PRN Reason: Agitation/psychosis Risperidone (Risperdal-M Tab *) 2 mg PO BID [facility]; Protocol Last Admin: 08/21/18 07:42 Dose: Not Given - Discharge Plan Discharge Plan: Consider Longer Term Tx Additional Comments: Ihotu is not complying with treatment recommendations and not communicating with staff. At this time, her presentation warrants state [facility]. She has been interviewed by other providers. 08/20/18: [facility] Communication with them has begun. Additionally, a plan to give her medications one at a time so that her intake can be better ascertained is in place. 08/21/18: Sreedhar has not been accepted to the [facility] at this time. We are going to pursue treatment over objection and have begun that process. Sreedhar has been invited to try clozapine, but she neither agreed nor disagreed. When asked if she declined, she simply looked at me. It seems a difficult path as Sreedhar has not been known to be compliant with her medications and even a three- day lapse in treatment, results in restarting the medication and interruptions in treatment are not helpful to Sreedhar.
[2018-08-22] MEDS: Nicotine Patch Removal NOTE PATCH OFF SCH ×2 (01:38→20:59)
[2018-08-22] MEDS: risperiDONE-M * 1 MG TAB.ORADIS PO SCH ×2 (01:38→10:18)
[2018-08-22] MEDS: Divalproex DR TAB(*) 500 MG PO SCH ×2 (01:38→10:17)
[2018-08-22] MEDS: Gabapentin CAP(*) 400 MG PO SCH ×2 (01:38→10:17)
[2018-08-22] MEDS: Nicotine PATCH 14 MG/24 HR* PATCH TRANSDERM SCH (10:17)
[2018-08-22] MEDS: Docusate CAP* 100 MG PO SCH (10:17)
[2018-08-22] MEDS: Vitamin THERAPEUTIC TAB PO SCH (10:18)
--- NOTE | 2018-08-22 12:51 | PN ---
Subjective - Subjective Date of Service: 08/22/18 Service Type: [id number] Hosp care 15 min low complexity Subjective: Sreedhar does not respond to me today, once again. She does speak with a tech for a moment when talking about what she would like for breakfast. She is pacing from her room to the milieu and back over and over again. I did speak to Dr. Meade about getting [facility], but he stated we needed to have the treatment over objection order in place first and with the court's holiday, that will be the first week of September. Objective - Appearance Appearance: Healthy Appearing Dysmorphic Features: No Hygiene: Normal Grooming: Well Kept - Behavior Psychomotor Activities: Normal Exhibits Abnormal Movement: No - Attitude and Relatedness Attitude and Relatedness: Psychotically Related Eye Contact: Good - Speech Quantity: Terse - Mood Patient's Decription of Mood: silent - Affect Observed Affect: Unvariable Affect Consistent with: Dysphoria - Thought Process Thought Content: Yes Paranoid Ideation - Level of Consciousness Level of Consciousness: Alert - Impulse Control Impulse Control: Poor - Insight and Judgement Insight and Judgement: Poor - Group Participation Particating in Group Activities: No - Medication Management Medication Management Adherence: No Assessment - Assessment Merits Inpatient Hospitalization: For Immediate Safety Inpatient DSM-V Dx: F25.0 Clinical Impression: 23 y.o. single, born female with a history of schizoaffective disorder arrives via .41 due to agitated, threatening behavior at the [facility], with whom she has an apartment, apparently in the context of poor adherence with medication. Plan - Plan Treatment Plan: Name: SREEDHAR MUKHERJEE Birthdate: 1995 [id number] Continue Depakote and olanzapine therapies. Patient needs further inpatient level care. Continued Medication Management: Start Medication Medications: Current Medications Acetaminophen (Tylenol Tab*) 650 mg PO Q4H PRN PRN Reason: for pain; or Temp >101 F Last Admin: 08/19/18 10:57 Dose: 650 mg Al Hydrox/Mg Hydrox/Simethicone (Maalox Plus*) 30 ml PO Q4H PRN PRN Reason: INDIGESTION Divalproex Sodium (Depakote Dr Tab(*)) 500 mg PO BEDTIME [facility] Last Admin: 08/22/18 01:38 Dose: Not Given Divalproex Sodium (Depakote Dr Tab(*)) 500 mg PO DAILY [facility] Last Admin: 08/22/18 10:17 Dose: Not Given Docusate Sodium (Colace Cap*) 100 mg PO DAILY [facility] Last Admin: 08/22/18 10:17 Dose: Not Given Gabapentin (Neurontin Cap(*)) 800 mg PO BID [facility] Last Admin: 08/22/18 10:17 Dose: Not Given Hydroxyzine HCl (Atarax Tab*) 25 mg PO Q4H PRN PRN Reason: anxiety/insomnia Last Admin: 08/18/18 06:41 Dose: 25 mg Ibuprofen (Motrin Tab*) 600 mg PO Q8H PRN PRN Reason: PAIN Last Admin: 08/19/18 13:55 Dose: 600 mg Lorazepam (Ativan Tab(*)) 1 mg PO Q8H PRN PRN Reason: anxiety and agitation Last Admin: 08/20/18 12:57 Dose: 1 mg Multivitamins (Theragran Tab*) 1 tab PO DAILY [facility] Last Admin: 08/22/18 10:18 Dose: Not Given Nicotine (Nicotine Inhaler*) 10 mg INH Q2H PRN PRN Reason: CRAVING Last Admin: 08/21/18 13:47 Dose: 10 mg Nicotine (Nicotine Patch 14 Mg/24 Hr*) 1 patch TRANSDERM DAILY [facility] Last Admin: 08/22/18 10:17 Dose: Not Given Nicotine Polacrilex (Nicotine Gum*) 2 mg PO Q2H PRN PRN Reason: CRAVINGS Last Admin: 08/21/18 13:49 Dose: 2 mg Pharmacy Profile Note (Nicotine Patch Removal Note*) 1 note PATCH OFF 2100 [facility] Last Admin: 08/22/18 01:38 Dose: Not Given Risperidone (Risperdal-M Tab *) 2 mg PO Q6H PRN; Protocol PRN Reason: Agitation/psychosis Risperidone (Risperdal-M Tab *) 2 mg PO BID [facility]; Protocol Last Admin: 08/22/18 10:18 Dose: Not Given - Discharge Plan Discharge Plan: Consider Longer Term Tx Additional Comments: Sreedhar is not complying with treatment recommendations and not communicating with staff. At this time, her [facility]. She has been interviewed by other providers. 08/20/18: Ihotu will be referred to [facility]. Communication with them has begun. Additionally, a plan to give her medications one at a time so that her intake can be better ascertained is in place. 08/21/18: Sreedhar has not been accepted to the [facility] at this time. We are going to pursue treatment over objection and have begun that process. Sreedhar has been invited to try clozapine, but she neither agreed nor disagreed. When asked if she declined, she simply looked at me. It seems a difficult path as Sreedhar has not been known to be compliant with her medications and even a three- day lapse in treatment, results in restarting the medication and interruptions in treatment are not helpful to Sreedhar. 08/22/18: Sreedhar continues to be noncompliant with medication recommendations and is also not responsive to most people who are working with her. An attempt to get her to the [facility] more quickly was not successful due to legal/ paperwork issues.
[2018-08-23] MEDS: risperiDONE-M * 1 MG TAB.ORADIS PO SCH ×3 (00:38→22:12)
[2018-08-23] MEDS: Divalproex DR TAB(*) 500 MG PO SCH ×3 (00:38→22:12)
[2018-08-23] MEDS: Gabapentin CAP(*) 400 MG PO SCH ×3 (00:38→22:12)
[2018-08-23] MEDS: Docusate CAP* 100 MG PO SCH (09:32)
[2018-08-23] MEDS: Nicotine PATCH 14 MG/24 HR* PATCH TRANSDERM SCH (09:32)
[2018-08-23] MEDS: Vitamin THERAPEUTIC TAB PO SCH (09:33)
--- NOTE | 2018-08-23 11:18 | PN ---
Subjective - Subjective Date of Service: 08/23/18 Service Type: 40339 Hosp care 15 min low complexity Subjective: Sreedhar regards me with a stare, but she does not verbally respond to me. She walks past me into her room with a pitcher of a drink. Her mother called today to ask if she should come visit and did choose to come visit, but Sreedhar did not consent to see her mother. She continues to be silent when spoken to and meets my gaze. Objective - Appearance Appearance: Healthy Appearing Dysmorphic Features: No Hygiene: Normal Grooming: Well Kept - Behavior Psychomotor Activities: Normal Exhibits Abnormal Movement: No - Attitude and Relatedness Attitude and Relatedness: Psychotically Related Eye Contact: Good - Mood Patient's Decription of Mood: Sreedhar is silent. - Affect Observed Affect: Unvariable Affect Consistent with: Dysphoria - Level of Consciousness Level of Consciousness: Alert - Impulse Control Impulse Control: Poor - Insight and Judgement Insight and Judgement: Poor - Group Participation Particating in Group Activities: No - Medication Management Medication Management Adherence: No Assessment - Assessment Inpatient DSM-V Dx: F25.0 Clinical Impression: 23 y.o. single, born female with a history of schizoaffective disorder arrives via 9.41 due to agitated, threatening behavior at the [facility], with whom she has an apartment, apparently in the context of poor adherence with medication. Plan - Plan Treatment Plan: Name: SREEDHAR MUKHERJEE Birthdate: 1995 [id number] Continue Depakote and olanzapine therapies. Patient needs further inpatient level care. Medications: Current Medications Acetaminophen (Tylenol Tab*) 650 mg PO Q4H PRN PRN Reason: for pain; or Temp >101 F Last Admin: 08/19/18 10:57 Dose: 650 mg Al Hydrox/Mg Hydrox/Simethicone (Maalox Plus*) 30 ml PO Q4H PRN PRN Reason: INDIGESTION Divalproex Sodium (Depakote Dr Tab(*)) 500 mg PO BEDTIME [facility] Last Admin: 08/23/18 00:38 Dose: Not Given Divalproex Sodium (Depakote Dr Tab(*)) 500 mg PO DAILY [facility] Last Admin: 08/23/18 09:32 Dose: Not Given Docusate Sodium (Colace Cap*) 100 mg PO DAILY [facility] Last Admin: 08/23/18 09:32 Dose: Not Given Gabapentin (Neurontin Cap(*)) 800 mg PO BID [facility] Last Admin: 08/23/18 09:32 Dose: Not Given Hydroxyzine HCl (Atarax Tab*) 25 mg PO Q4H PRN PRN Reason: anxiety/insomnia Last Admin: 08/18/18 06:41 Dose: 25 mg Ibuprofen (Motrin Tab*) 600 mg PO Q8H PRN PRN Reason: PAIN Last Admin: 08/19/18 13:55 Dose: 600 mg Lorazepam (Ativan Tab(*)) 1 mg PO Q8H PRN PRN Reason: ANXIETY AND AGITATION Multivitamins (Theragran Tab*) 1 tab PO DAILY [facility] Last Admin: 08/23/18 09:33 Dose: Not Given Nicotine (Nicotine Inhaler*) 10 mg INH Q2H PRN PRN Reason: CRAVING Last Admin: 08/21/18 13:47 Dose: 10 mg Nicotine (Nicotine Patch 14 Mg/24 Hr*) 1 patch TRANSDERM DAILY [facility] Last Admin: 08/23/18 09:32 Dose: Not Given Nicotine Polacrilex (Nicotine Gum*) 2 mg PO Q2H PRN PRN Reason: CRAVINGS Last Admin: 08/21/18 13:49 Dose: 2 mg Pharmacy Profile Note (Nicotine Patch Removal Note*) 1 note PATCH OFF 2100 [facility] Last Admin: 08/22/18 20:59 Dose: Not Given Risperidone (Risperdal-M Tab *) 2 mg PO Q6H PRN; Protocol PRN Reason: Agitation/psychosis Risperidone (Risperdal-M Tab *) 2 mg PO BID [facility]; Protocol Last Admin: 08/23/18 09:33 Dose: Not Given - Discharge Plan Discharge Plan: Inpatient Hospitalization Additional Comments: Sreedhar is not complying with treatment recommendations and not communicating with staff. At this time, her presentation warrants [facility] referral. She has been interviewed by other providers. 08/20/18: Sreedhar will be referred to [facility]. Communication with them has begun. Additionally, a plan to give her medications one at a time so that her intake can be better ascertained is in place. 08/21/18: Sreedhar has not been accepted to the [facility] at this time. We are going to pursue treatment over objection and have begun that process. Sreedhar has been invited to try clozapine, but she neither agreed nor disagreed. When asked if she declined, she simply looked at me. It seems a difficult path as Sreedhar has not been known to be compliant with her medications and even a three- day lapse in treatment, results in restarting the medication and interruptions in treatment are not helpful to Sreedhar. 08/22/18: Sreedhar continues to be noncompliant with medication recommendations and is also not responsive to most people who are working with her. An attempt to get her to the [facility] more quickly was not successful due to legal/ paperwork issues. 08/23/18: Sreedhar's status remains unchanged. Sreedhar did not consent to see her mother today. The plan remains the same.
[2018-08-23] MEDS: Nicotine Patch Removal NOTE PATCH OFF SCH (22:10)
[2018-08-23] MEDS: Nicotine GUM* 2 MG PO PRN (22:11)
[2018-08-24] MEDS: Nicotine GUM* 2 MG PO PRN (04:53)
[2018-08-24] MEDS: Divalproex DR TAB(*) 500 MG PO SCH ×2 (10:34→19:04)
[2018-08-24] MEDS: Docusate CAP* 100 MG PO SCH (10:34)
[2018-08-24] MEDS: Gabapentin CAP(*) 400 MG PO SCH ×2 (10:34→19:04)
[2018-08-24] MEDS: Nicotine PATCH 14 MG/24 HR* PATCH TRANSDERM SCH (10:34)
[2018-08-24] MEDS: Vitamin THERAPEUTIC TAB PO SCH (10:35)
[2018-08-24] MEDS: risperiDONE-M * 1 MG TAB.ORADIS PO SCH ×2 (10:35→19:04)
[2018-08-24] MEDS: Nicotine Patch Removal NOTE PATCH OFF SCH (19:04)
[2018-08-25] MEDS ORDERED: LORazepam INJ* 2 MG/ML 1 ML VIAL IM ONE (01:00)
[2018-08-25] MEDS ORDERED: Haloperidol INJ IV/IM* 5 MG/ML AMP IM ONE (01:00)
[2018-08-25] MEDS: Nicotine Inhaler* 10 MG AMP INH PRN ×3 (01:10→22:15)
[2018-08-25] MEDS: Divalproex DR TAB(*) 500 MG PO SCH ×2 (10:16→21:21)
[2018-08-25] MEDS: Docusate CAP* 100 MG PO SCH (10:16)
[2018-08-25] MEDS: Gabapentin CAP(*) 400 MG PO SCH ×2 (10:16→21:20)
[2018-08-25] MEDS: Vitamin THERAPEUTIC TAB PO SCH (10:17)
[2018-08-25] MEDS: risperiDONE-M * 1 MG TAB.ORADIS PO SCH ×2 (10:17→21:37)
[2018-08-25] MEDS: Nicotine PATCH 14 MG/24 HR* PATCH TRANSDERM SCH (10:17)
[2018-08-25] MEDS: Ibuprofen TAB* 600 MG PO PRN (12:55)
[2018-08-25] MEDS: LORazepam TAB(*) 1 MG PO PRN (21:09)
[2018-08-25] MEDS: Nicotine Patch Removal NOTE PATCH OFF SCH (21:37)
[2018-08-26] MEDS: Nicotine Inhaler* 10 MG AMP INH PRN ×5 (04:15→18:24)
[2018-08-26] MEDS: Nicotine GUM* 2 MG PO PRN ×5 (04:15→18:23)
[2018-08-26] MEDS: LORazepam TAB(*) 1 MG PO PRN ×2 (06:51→15:25)
[2018-08-26] MEDS: Gabapentin CAP(*) 400 MG PO SCH ×2 (07:32→21:45)
[2018-08-26] MEDS: Vitamin THERAPEUTIC TAB PO SCH (07:32)
[2018-08-26] MEDS: Docusate CAP* 100 MG PO SCH (07:52)
[2018-08-26] MEDS: Nicotine PATCH 14 MG/24 HR* PATCH TRANSDERM SCH (07:52)
[2018-08-26] MEDS: Divalproex DR TAB(*) 500 MG PO SCH ×2 (07:52→21:43)
[2018-08-26] MEDS: risperiDONE-M * 1 MG TAB.ORADIS PO SCH ×2 (07:53→21:44)
--- NOTE | 2018-08-26 11:29 | PN ---
Subjective - Subjective Date of Service: 08/26/18 Service Type: [id number] Hosp care 15 min low complexity Subjective: I spoke to Sreedhar today to say good morning and hello. She regarded me with a stare and followed me out of the side of her eye as I walked by. She has removed the hair covering she has been wearing. She seems to be hanging around the nursing station, but she is not speaking to people. Objective - Appearance Appearance: Healthy Appearing Dysmorphic Features: No Hygiene: Normal Grooming: Well Kept - Behavior Psychomotor Activities: Normal Exhibits Abnormal Movement: No - Attitude and Relatedness Attitude and Relatedness: Psychotically Related Eye Contact: Good - Mood Patient's Decription of Mood: pt. is silent - Affect Observed Affect: Tense Affect Consistent with: Dysphoria - Level of Consciousness Level of Consciousness: Alert - Impulse Control Impulse Control: Poor - Insight and Judgement Insight and Judgement: Poor - Group Participation Particating in Group Activities: No - Medication Management Medication Management Adherence: No Assessment - Assessment Merits Inpatient Hospitalization: For Immediate Safety Inpatient DSM-V Dx: F25.0 Clinical Impression: 23 y.o. single, born female with a history of schizoaffective disorder arrives via .41 due to agitated, threatening behavior at the [facility], with whom she has an apartment, apparently in the context of poor adherence with medication. Plan - Plan Treatment Plan: Name: SREEDHAR MUKHERJEE Birthdate: 1995 [id number] Continue Depakote and olanzapine therapies. Patient needs further inpatient level care. Medications: Current Medications Acetaminophen (Tylenol Tab*) 650 mg PO Q4H PRN PRN Reason: for pain; or Temp >101 F Last Admin: 08/19/18 10:57 Dose: 650 mg Al Hydrox/Mg Hydrox/Simethicone (Maalox Plus*) 30 ml PO Q4H PRN PRN Reason: INDIGESTION Divalproex Sodium (Depakote Dr Tab(*)) 500 mg PO BEDTIME [facility] Last Admin: 08/25/18 21:21 Dose: 500 mg Divalproex Sodium (Depakote Dr Tab(*)) 500 mg PO DAILY [facility] Last Admin: 08/26/18 07:52 Dose: Not Given Docusate Sodium (Colace Cap*) 100 mg PO DAILY [facility] Last Admin: 08/26/18 07:52 Dose: Not Given Gabapentin (Neurontin Cap(*)) 800 mg PO BID [facility] Last Admin: 08/26/18 07:32 Dose: 400 mg Hydroxyzine HCl (Atarax Tab*) 25 mg PO Q4H PRN PRN Reason: anxiety/insomnia Last Admin: 08/18/18 06:41 Dose: 25 mg Ibuprofen (Motrin Tab*) 600 mg PO Q8H PRN PRN Reason: PAIN Last Admin: 08/25/18 12:55 Dose: 600 mg Lorazepam (Ativan Tab(*)) 1 mg PO Q8H PRN PRN Reason: ANXIETY AND AGITATION Last Admin: 08/26/18 06:51 Dose: 1 mg Multivitamins (Theragran Tab*) 1 tab PO DAILY [facility] Last Admin: 08/26/18 07:32 Dose: 1 tab Nicotine (Nicotine Inhaler*) 10 mg INH Q2H PRN PRN Reason: CRAVING Last Admin: 08/26/18 10:58 Dose: 10 mg Nicotine (Nicotine Patch 14 Mg/24 Hr*) 1 patch TRANSDERM DAILY [facility] Last Admin: 08/26/18 07:52 Dose: Not Given Nicotine Polacrilex (Nicotine Gum*) 2 mg PO Q2H PRN PRN Reason: CRAVINGS Last Admin: 08/26/18 10:59 Dose: 2 mg Pharmacy Profile Note (Nicotine Patch Removal Note*) 1 note PATCH OFF 2100 [facility] Last Admin: 08/25/18 21:37 Dose: Not Given Risperidone (Risperdal-M Tab *) 2 mg PO Q6H PRN; Protocol PRN Reason: Agitation/psychosis Risperidone (Risperdal-M Tab *) 2 mg PO BID [facility]; Protocol Last Admin: 08/26/18 07:53 Dose: Not Given - Discharge Plan Discharge Plan: Inpatient Hospitalization Additional Comments: Sreedhar is not complying with treatment recommendations and not communicating with staff. At this time, her presentation warrants [facility] referral. She has been interviewed by other providers. 08/20/18: Sreedhar will be referred to [facility]. Communication with them has begun. Additionally, a plan to give her medications one at a time so that her intake can be better ascertained is in place. 08/21/18: Sreedhar has not been accepted to the [facility] at this time. We are going to pursue treatment over objection and have begun that process. Sreedhar has been invited to try clozapine, but she neither agreed nor disagreed. When asked if she declined, she simply looked at me. It seems a difficult path as Sreedhar has not been known to be compliant with her medications and even a three- day lapse in treatment, results in restarting the medication and interruptions in treatment are not helpful to Sreedhar. 08/22/18: Sreedhar continues to be noncompliant with medication recommendations and is also not responsive to most people who are working with her. An attempt to get her to the [facility] more quickly was not successful due to legal/ paperwork issues. 08/23/18: Sreedhar's status remains unchanged. Sreedhar did not consent to see her mother today. The plan remains the same. 08/26/18: Sreedhar continues to be noncommunicative. She stares rather than talks and makes demands of techs and of nurses.
[2018-08-26] MEDS ORDERED: Lidocaine 4% TOPICAL* 50 ML TOP.SOLN TOPICAL PRN (14:10)
[2018-08-26] MEDS: hydrOXYzine HCL TAB* 25 MG PO PRN (16:11)
[2018-08-26] MEDS ORDERED: Mouth Piece, Nicotine* 1 EACH CARTRIDGE ONE (18:20)
[2018-08-26] MEDS: Nicotine Patch Removal NOTE PATCH OFF SCH (21:50)
[2018-08-27] MEDS ORDERED: Haloperidol INJ IV/IM* 5 MG/ML AMP IM ONE (01:18)
[2018-08-27] MEDS ORDERED: Benztropine INJ* 1 MG/ML 2 ML AMP IM ONE (01:18)
[2018-08-27] MEDS ORDERED: Haloperidol INJ IV/IM* 5 MG/ML AMP ONE ×2 (01:20→01:32)
[2018-08-27] MEDS ORDERED: Benztropine INJ* 1 MG/ML 2 ML AMP ONE (01:21)
[2018-08-27] MEDS: LORazepam TAB(*) 1 MG PO PRN ×3 (02:05→20:11)
[2018-08-27] MEDS: Gabapentin CAP(*) 400 MG PO SCH ×3 (02:32→20:11)
[2018-08-27] MEDS: Nicotine Inhaler* 10 MG AMP INH PRN ×2 (09:52→18:04)
[2018-08-27] MEDS: Nicotine GUM* 2 MG PO PRN ×3 (09:52→20:12)
[2018-08-27] MEDS: Divalproex DR TAB(*) 500 MG PO SCH ×2 (11:18→20:16)
[2018-08-27] MEDS: Nicotine PATCH 14 MG/24 HR* PATCH TRANSDERM SCH (11:18)
[2018-08-27] MEDS: risperiDONE-M * 1 MG TAB.ORADIS PO SCH ×2 (11:18→20:16)
[2018-08-27] MEDS: Docusate CAP* 100 MG PO SCH (11:18)
[2018-08-27] MEDS: Vitamin THERAPEUTIC TAB PO SCH (11:18)
[2018-08-27] MEDS: hydrOXYzine HCL TAB* 25 MG PO PRN (18:04)
[2018-08-27] MEDS: Nicotine Patch Removal NOTE PATCH OFF SCH (20:16)
[2018-08-27] MEDS: Ibuprofen TAB* 600 MG PO PRN (23:39)
[2018-08-28] MEDS: Nicotine Inhaler* 10 MG AMP INH PRN (04:35)
[2018-08-28] MEDS: Nicotine GUM* 2 MG PO PRN (05:51)
[2018-08-28] MEDS: risperiDONE-M * 1 MG TAB.ORADIS PO SCH ×2 (11:58→22:24)
[2018-08-28] MEDS: Gabapentin CAP(*) 400 MG PO SCH ×2 (11:58→22:23)
[2018-08-28] MEDS: Docusate CAP* 100 MG PO SCH (11:58)
[2018-08-28] MEDS: Divalproex DR TAB(*) 500 MG PO SCH ×2 (11:58→22:23)
[2018-08-28] MEDS: Vitamin THERAPEUTIC TAB PO SCH (11:58)
[2018-08-28] MEDS: Nicotine PATCH 14 MG/24 HR* PATCH TRANSDERM SCH (11:58)
--- NOTE | 2018-08-28 14:15 | PN ---
Subjective - Subjective Date of Service: 08/28/18 Service Type: [id number] Hosp care 15 min low complexity Subjective: Despite my greeting Sreedhar and pursuing a conversation, Brady walked past me with a glassy-eyed stare carrying a cup of coffee encased in approximately five styrofoam coffee cups. Staff have eliminated plastic marrero and cups from the milieu area and require that all patients ask for what they need rather than allow Sreedhar to have plastic marrero (which she had used yesterday to threaten staff ) or more cups. Apparently Sreedhar had called her mom this morning several times, but when Sreedhar' s mother returned the call, Sreedhar walked toward and then away from the phone in a disorganized fashion, never picking up the phone. On the other hand, Sreedhar has been quite chatty with some staff members. Objective - Appearance Appearance: Healthy Appearing Dysmorphic Features: No Hygiene: Normal Grooming: Well Kept - Behavior Psychomotor Activities: Normal Exhibits Abnormal Movement: No - Attitude and Relatedness Attitude and Relatedness: Psychotically Related Eye Contact: Fair - Mood Patient's Decription of Mood: pt. is silent - Impulse Control Impulse Control: Poor - Insight and Judgement Insight and Judgement: Poor - Group Participation Particating in Group Activities: No - Medication Management Medication Management Adherence: No Assessment - Assessment Merits Inpatient Hospitalization: For Immediate Safety Inpatient DSM-V Dx: F25.0 Clinical Impression: 23 y.o. single, born female with a history of schizoaffective disorder arrives via 9.41 due to agitated, threatening behavior at the [facility], with whom she has an apartment, apparently in the context of poor adherence with medication. MHU: Problem List - Patient Problems (1) Schizoaffective disorder, bipolar type Current Visit: Yes Status: Acute Code(s): F25.0 - SCHIZOAFFECTIVE DISORDER, BIPOLAR TYPE SNOMED Code(s): 17088543 Plan - Plan Treatment Plan: Name: SREEDHAR MUKHERJEE Birthdate: 1995 [id number] Continue Depakote and olanzapine therapies. Patient needs further inpatient level care. Medications: Current Medications Acetaminophen (Tylenol Tab*) 650 mg PO Q4H PRN PRN Reason: for pain; or Temp >101 F Last Admin: 08/19/18 10:57 Dose: 650 mg Al Hydrox/Mg Hydrox/Simethicone (Maalox Plus*) 30 ml PO Q4H PRN PRN Reason: INDIGESTION Last Admin: 08/27/18 18:05 Dose: 30 ml Divalproex Sodium (Depakote Dr Tab(*)) 500 mg PO BEDTIME [facility] Last Admin: 08/27/18 20:16 Dose: Not Given Divalproex Sodium (Depakote Dr Tab(*)) 500 mg PO DAILY [facility] Last Admin: 08/28/18 11:58 Dose: Not Given Docusate Sodium (Colace Cap*) 100 mg PO DAILY [facility] Last Admin: 08/28/18 11:58 Dose: Not Given Gabapentin (Neurontin Cap(*)) 800 mg PO BID [facility] Last Admin: 08/28/18 11:58 Dose: Not Given Hydroxyzine HCl (Atarax Tab*) 25 mg PO Q4H PRN PRN Reason: anxiety/insomnia Last Admin: 08/27/18 18:04 Dose: 25 mg Ibuprofen (Motrin Tab*) 600 mg PO Q8H PRN PRN Reason: PAIN Last Admin: 08/27/18 23:39 Dose: 600 mg Lidocaine HCl (Lidocaine 4% Topical*) 1 applic TOPICAL Q4H PRN PRN Reason: PAIN Lorazepam (Ativan Tab(*)) 1 mg PO Q8H PRN PRN Reason: ANXIETY AND AGITATION Last Admin: 08/27/18 20:11 Dose: 1 mg Multivitamins (Theragran Tab*) 1 tab PO DAILY [facility] Last Admin: 08/28/18 11:58 Dose: Not Given Nicotine (Nicotine Inhaler*) 10 mg INH Q2H PRN PRN Reason: CRAVING Last Admin: 08/28/18 04:35 Dose: 10 mg Nicotine (Nicotine Patch 14 Mg/24 Hr*) 1 patch TRANSDERM DAILY [facility] Last Admin: 08/28/18 11:58 Dose: Not Given Nicotine Polacrilex (Nicotine Gum*) 2 mg PO Q2H PRN PRN Reason: CRAVINGS Last Admin: 08/28/18 05:51 Dose: 2 mg Pharmacy Profile Note (Nicotine Patch Removal Note*) 1 note PATCH OFF 2100 [facility] Last Admin: 08/27/18 20:16 Dose: Not Given Risperidone (Risperdal-M Tab *) 2 mg PO Q6H PRN; Protocol PRN Reason: Agitation/psychosis Risperidone (Risperdal-M Tab *) 2 mg PO BID [facility]; Protocol Last Admin: 08/28/18 11:58 Dose: Not Given - Discharge Plan Discharge Plan: Inpatient Hospitalization Additional Comments: Sreedhar is not complying with treatment recommendations and not communicating with staff. At this time, her presentation warrants [facility] referral. She has been interviewed by other providers. 08/20/18: Sreedhar will be referred to [facility]. Communication with them has begun. Additionally, a plan to give her medications one at a time so that her intake can be better ascertained is in place. 08/21/18: Sreedhar has not been accepted to the [facility] at this time. We are going to pursue treatment over objection and have begun that process. Sreedhar has been invited to try clozapine, but she neither agreed nor disagreed. When asked if she declined, she simply looked at me. It seems a difficult path as Sreedhar has not been known to be compliant with her medications and even a three- day lapse in treatment, results in restarting the medication and interruptions in treatment are not helpful to Sreedhar. 08/22/18: Sreedhar continues to be noncompliant with medication recommendations and is also not responsive to most people who are working with her. An attempt to get her to the [facility] more quickly was not successful due to legal/ paperwork issues. 08/23/18: Sreedhar's status remains unchanged. Sreedhar did not consent to see her mother today. The plan remains the same. 08/26/18: Sreedhar continues to be noncommunicative. She stares rather than talks and makes demands of techs and of nurses. 08/28/18: The plan for Sreedhar continues to be that she will have treatment over objection and then move on to [facility].
[2018-08-28] MEDS: Nicotine Patch Removal NOTE PATCH OFF SCH (22:24)
[2018-08-29] MEDS: Nicotine Inhaler* 10 MG AMP INH PRN (09:10)
[2018-08-29] MEDS: LORazepam TAB(*) 1 MG PO PRN (09:11)
[2018-08-29] MEDS ORDERED: LORazepam TAB(*) 1 MG PO PRN (10:00)
[2018-08-29] MEDS: Docusate CAP* 100 MG PO SCH (10:28)
[2018-08-29] MEDS: Divalproex DR TAB(*) 500 MG PO SCH ×2 (10:28→20:22)
[2018-08-29] MEDS: Gabapentin CAP(*) 400 MG PO SCH ×2 (10:29→20:22)
[2018-08-29] MEDS: risperiDONE-M * 1 MG TAB.ORADIS PO SCH ×2 (10:29→20:23)
[2018-08-29] MEDS: Vitamin THERAPEUTIC TAB PO SCH (10:29)
[2018-08-29] MEDS: Nicotine PATCH 14 MG/24 HR* PATCH TRANSDERM SCH (10:29)
[2018-08-29] MEDS: Nicotine Patch Removal NOTE PATCH OFF SCH (20:23)
[2018-08-30] MEDS: Nicotine Inhaler* 10 MG AMP INH PRN ×3 (04:00→20:20)
[2018-08-30] MEDS: Divalproex DR TAB(*) 500 MG PO SCH ×3 (04:00→11:51)
[2018-08-30] MEDS: Gabapentin CAP(*) 400 MG PO SCH ×4 (04:00→20:21)
[2018-08-30] MEDS: Nicotine PATCH 14 MG/24 HR* PATCH TRANSDERM SCH (11:17)
[2018-08-30] MEDS: Docusate CAP* 100 MG PO SCH ×2 (11:17→11:46)
[2018-08-30] MEDS: risperiDONE-M * 1 MG TAB.ORADIS PO SCH ×2 (11:18→22:14)
[2018-08-30] MEDS: Vitamin THERAPEUTIC TAB PO SCH (11:18)
[2018-08-30] MEDS: Nicotine GUM* 2 MG PO PRN (11:47)
[2018-08-30] MEDS: LORazepam TAB(*) 1 MG PO PRN ×2 (11:47→20:21)
[2018-08-30] MEDS: Mouth Piece, Nicotine* 1 EACH CARTRIDGE ONE ×2 (12:36→20:25)
--- NOTE | 2018-08-30 13:52 | PN ---
Subjective - Subjective Date of Service: 08/30/18 Service Type: [id number] Hosp care 25 min moderate complexity Subjective: Sreedhar talked for approximately 20 minutes today at a table with me, Ira العلي LMSW, and TYLER MarshallT. Sreedhar spoke in eloquent language, but the message was disorganized and revolved around her having access to food. She spoke circumstantially and used phrases that were nearly correct, but ended with the wrong metaphor. In a later exchange where Sreedhar wanted to discuss her medications, she stated, "You are like clockwork and I've never even read that book." I did make a medication change for her: I changed Depakote DR 500 mg BID to Depakote ER 500 mg QHS. She also explained that her olanzapine that she took outpatient was something she took "frequently" and that she took the Depakote as a PRN to help her sleep. The conversation, however, was bizarre and confrontational. Objective - Appearance Appearance: Healthy Appearing Dysmorphic Features: No Hygiene: Normal Grooming: Well Kept - Behavior Psychomotor Activities: Normal Exhibits Abnormal Movement: No - Attitude and Relatedness Attitude and Relatedness: Psychotically Related Eye Contact: Good - Speech Quality: Unpressured Latencies: Short Quantity: Copious - Mood Patient's Decription of Mood: "Angry" - Affect Observed Affect: Fair Affect Consistent with: Dysphoria - Thought Process Patient's Thought Process: Disorganized, Circumstantial Thought Content: Yes Paranoid Ideation, No Passive Wish, No Suicidal Planning, No Homicidal Ideation - Sensorium Experiencing Hallucinations: No, Sensorium is Clear Type of Hallucinations: Visual: No, Auditory: No, Command: No - Level of Consciousness Level of Consciousness: Alert Orientation: Yes Intact, Yes Orientated to Time, Yes Orientated to Place, Yes Orientated to Person - Impulse Control Impulse Control: Impaired - Insight and Judgement Insight and Judgement: Poor - Group Participation Particating in Group Activities: No - Medication Management Medication Management Adherence: No Assessment - Assessment Inpatient DSM-V Dx: F25.0 Clinical Impression: 23 y.o. single, born female with a history of schizoaffective disorder arrives via due to agitated, threatening behavior at the [facility], with whom she has an apartment, apparently in the context of poor adherence with medication. MHU: Problem List - Patient Problems (1) Schizoaffective disorder, bipolar type Current Visit: Yes Status: Acute Code(s): F25.0 - SCHIZOAFFECTIVE DISORDER, BIPOLAR TYPE SNOMED Code(s): 15003121 Plan - Plan Treatment Plan: Name: SREEDHAR MUKHERJEE Birthdate: 1995 [id number] Continue Depakote and olanzapine therapies. Patient needs further inpatient level care. Continued Medication Management: Start Medication Medications: Current Medications Acetaminophen (Tylenol Tab*) 650 mg PO Q4H PRN PRN Reason: for pain; or Temp >101 F Last Admin: 08/19/18 10:57 Dose: 650 mg Al Hydrox/Mg Hydrox/Simethicone (Maalox Plus*) 30 ml PO Q4H PRN PRN Reason: INDIGESTION Last Admin: 08/27/18 18:05 Dose: 30 ml Divalproex Sodium (Depakote Dr Tab(*)) 500 mg PO BEDTIME [facility] Last Admin: 08/30/18 04:00 Dose: 500 mg Divalproex Sodium (Depakote Dr Tab(*)) 500 mg PO DAILY [facility] Last Admin: 08/30/18 11:51 Dose: Not Given Docusate Sodium (Colace Cap*) 100 mg PO DAILY [facility] Last Admin: 08/30/18 11:46 Dose: 100 mg Gabapentin (Neurontin Cap(*)) 800 mg PO BID [facility] Last Admin: 08/30/18 11:45 Dose: 800 mg Hydroxyzine HCl (Atarax Tab*) 25 mg PO Q4H PRN PRN Reason: anxiety/insomnia Last Admin: 08/27/18 18:04 Dose: 25 mg Ibuprofen (Motrin Tab*) 600 mg PO Q8H PRN PRN Reason: PAIN Last Admin: 08/27/18 23:39 Dose: 600 mg Lidocaine HCl (Lidocaine 4% Topical*) 1 applic TOPICAL Q4H PRN PRN Reason: PAIN Lorazepam (Ativan Tab(*)) 2 mg PO Q4H PRN PRN Reason: ANXIETY AND AGITATION Last Admin: 08/30/18 11:47 Dose: 2 mg Multivitamins (Theragran Tab*) 1 tab PO DAILY [facility] Last Admin: 08/30/18 11:18 Dose: Not Given Nicotine (Nicotine Inhaler*) 10 mg INH Q2H PRN PRN Reason: CRAVING Last Admin: 08/30/18 11:47 Dose: 10 mg Nicotine (Nicotine Patch 14 Mg/24 Hr*) 1 patch TRANSDERM DAILY [facility] Last Admin: 08/30/18 11:17 Dose: Not Given Nicotine Polacrilex (Nicotine Gum*) 2 mg PO Q2H PRN PRN Reason: CRAVINGS Last Admin: 08/30/18 11:47 Dose: 2 mg Pharmacy Profile Note (Nicotine Patch Removal Note*) 1 note PATCH OFF 2100 [facility] Last Admin: 08/29/18 20:23 Dose: Not Given Risperidone (Risperdal-M Tab *) 2 mg PO Q6H PRN; Protocol PRN Reason: Agitation/psychosis Risperidone (Risperdal-M Tab *) 2 mg PO BID [facility]; Protocol Last Admin: 08/30/18 11:18 Dose: Not Given - Discharge Plan Discharge Plan: Inpatient Hospitalization Additional Comments: Sreedhar is not complying with treatment recommendations and not communicating with staff. At this time, her presentation warrants [facility] referral. She has been interviewed by other providers. 08/20/18: Sreedhar will be referred to [facility]. Communication with them has begun. Additionally, a plan to give her medications one at a time so that her intake can be better ascertained is in place. 08/21/18: Sreedhar has not been accepted to the [facility] at this time. We are going to pursue treatment over objection and have begun that process. Sreedhar has been invited to try clozapine, but she neither agreed nor disagreed. When asked if she declined, she simply looked at me. It seems a difficult path as Sreedhar has not been known to be compliant with her medications and even a three- day lapse in treatment, results in restarting the medication and interruptions in treatment are not helpful to Sreedhar. 08/22/18: Sreedhar continues to be noncompliant with medication recommendations and is also not responsive to most people who are working with her. An attempt to get her to the [facility] more quickly was not successful due to legal/ paperwork issues. 08/23/18: Sreedhar's status remains unchanged. Sreedhar did not consent to see her mother today. The plan remains the same. 08/26/18: Ihotu continues to be noncommunicative. She stares rather than talks and makes demands of techs and of nurses. 08/28/18: The plan for Sreedhar continues to be that she will have treatment over objection and then move on to [facility]. 08/30/18: Depakote is changed from DR 500 mg BID to ER 500 mg QHS as a compromise from her request to take ER 250 mg PRN. Sreedhar's change of heart about conversing is surprising. She seems as if she wants to discuss her plan for becoming better, but she is unwilling to compromise.
[2018-08-30] MEDS: hydrOXYzine HCL TAB* 25 MG PO PRN (16:45)
[2018-08-30] MEDS ORDERED: Mouth Piece, Nicotine* 1 EACH CARTRIDGE ONE (20:25)
[2018-08-30] MEDS: Divalproex ER TAB(*) 500 MG PO SCH (23:28)
[2018-08-30] MEDS: Nicotine Patch Removal NOTE PATCH OFF SCH (23:28)
[2018-08-31] MEDS: Nicotine Inhaler* 10 MG AMP INH PRN ×2 (05:15→22:36)
[2018-08-31] MEDS: LORazepam TAB(*) 1 MG PO PRN ×3 (06:39→23:18)
[2018-08-31] MEDS: Gabapentin CAP(*) 400 MG PO SCH ×2 (08:56→22:36)
[2018-08-31] MEDS: Nicotine GUM* 2 MG PO PRN ×2 (08:57→22:36)
[2018-08-31] MEDS: Vitamin THERAPEUTIC TAB PO SCH (09:21)
[2018-08-31] MEDS: Docusate CAP* 100 MG PO SCH (09:50)
[2018-08-31] MEDS: risperiDONE-M * 1 MG TAB.ORADIS PO SCH ×2 (09:50→22:41)
[2018-08-31] MEDS: Nicotine PATCH 14 MG/24 HR* PATCH TRANSDERM SCH (09:50)
[2018-08-31] MEDS: hydrOXYzine HCL TAB* 25 MG PO PRN (13:11)
[2018-08-31] MEDS ORDERED: Haloperidol TAB* 5 MG PO ONE (17:26)
[2018-08-31] MEDS ORDERED: LORazepam INJ* 2 MG/ML 1 ML VIAL IM ONE (17:26)
[2018-08-31] MEDS ORDERED: LORazepam TAB(*) 1 MG PO ONE (17:26)
[2018-08-31] MEDS ORDERED: LORazepam INJ* 2 MG/ML 1 ML VIAL ONE (17:31)
[2018-08-31] MEDS ORDERED: Haloperidol TAB* 5 MG ONE (17:31)
[2018-08-31] MEDS ORDERED: LORazepam TAB(*) 1 MG ONE (17:31)
[2018-08-31] MEDS ORDERED: Haloperidol INJ IV/IM* 5 MG/ML AMP ONE (17:31)
[2018-08-31] MEDS ORDERED: Haloperidol INJ IV/IM* 5 MG/ML AMP IM ONE (20:00)
[2018-08-31] MEDS: Divalproex ER TAB(*) 500 MG PO SCH (22:36)
[2018-08-31] MEDS ORDERED: Mouth Piece, Nicotine* 1 EACH CARTRIDGE ONE (22:40)
[2018-08-31] MEDS: Nicotine Patch Removal NOTE PATCH OFF SCH (22:41)
[2018-09-01] MEDS: Nicotine GUM* 2 MG PO PRN ×4 (01:36→20:58)
[2018-09-01] MEDS: Nicotine Inhaler* 10 MG AMP INH PRN ×2 (02:49→18:24)
[2018-09-01] MEDS: hydrOXYzine HCL TAB* 25 MG PO PRN (10:06)
[2018-09-01] MEDS: Vitamin THERAPEUTIC TAB PO SCH (10:06)
[2018-09-01] MEDS: LORazepam TAB(*) 1 MG PO PRN ×3 (10:06→20:57)
[2018-09-01] MEDS: Docusate CAP* 100 MG PO SCH (10:06)
[2018-09-01] MEDS: risperiDONE-M * 1 MG TAB.ORADIS PO SCH (10:10)
[2018-09-01] MEDS: Nicotine PATCH 14 MG/24 HR* PATCH TRANSDERM SCH (10:10)
[2018-09-01] MEDS: Gabapentin CAP(*) 400 MG PO SCH ×2 (10:10→20:47)
[2018-09-01] MEDS ORDERED: Ziprasidone IM INJ* 20 MG/ML VIAL ONE ×2 (12:49→22:49)
[2018-09-01] MEDS: Ibuprofen TAB* 600 MG PO PRN (18:28)
[2018-09-01] MEDS: Nicotine Patch Removal NOTE PATCH OFF SCH (19:47)
[2018-09-01] MEDS ORDERED: Ziprasidone IM INJ* 20 MG/ML VIAL IM ONE (22:43)
[2018-09-02] MEDS: risperiDONE-M * 1 MG TAB.ORADIS PO SCH ×3 (03:44→22:24)
[2018-09-02] MEDS: Divalproex ER TAB(*) 500 MG PO SCH ×2 (03:44→22:24)
[2018-09-02] MEDS: Nicotine GUM* 2 MG PO PRN ×6 (07:27→22:51)
[2018-09-02] MEDS: Nicotine Inhaler* 10 MG AMP INH PRN ×5 (07:27→20:37)
[2018-09-02] MEDS: Docusate CAP* 100 MG PO SCH (09:17)
[2018-09-02] MEDS: Vitamin THERAPEUTIC TAB PO SCH (09:17)
[2018-09-02] MEDS: Gabapentin CAP(*) 400 MG PO SCH ×2 (09:17→20:36)
[2018-09-02] MEDS: LORazepam TAB(*) 1 MG PO PRN ×2 (09:20→16:45)
[2018-09-02] MEDS: Nicotine PATCH 14 MG/24 HR* PATCH TRANSDERM SCH (09:22)
[2018-09-02] MEDS: hydrOXYzine HCL TAB* 25 MG PO PRN (10:45)
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
[2018-09-02] MEDS: Nicotine Patch Removal NOTE PATCH OFF SCH (22:24)
[2018-09-03] MEDS: Nicotine Inhaler* 10 MG AMP INH PRN ×4 (01:57→22:15)
[2018-09-03] MEDS ORDERED: hydrOXYzine HCL TAB* 25 MG ONE (05:40)
[2018-09-03] MEDS: hydrOXYzine HCL TAB* 25 MG PO PRN (05:41)
[2018-09-03] MEDS: Gabapentin CAP(*) 400 MG PO SCH ×2 (08:59→23:18)
[2018-09-03] MEDS: Vitamin THERAPEUTIC TAB PO SCH (08:59)
[2018-09-03] MEDS: LORazepam TAB(*) 1 MG PO PRN (09:00)
[2018-09-03] MEDS: risperiDONE-M * 1 MG TAB.ORADIS PO SCH ×2 (09:01→23:19)
[2018-09-03] MEDS: Docusate CAP* 100 MG PO SCH (09:01)
[2018-09-03] MEDS: Nicotine PATCH 14 MG/24 HR* PATCH TRANSDERM SCH (09:01)
[2018-09-03] MEDS: Nicotine GUM* 2 MG PO PRN (09:14)
[2018-09-03] MEDS: Divalproex ER TAB(*) 500 MG PO SCH (23:18)
[2018-09-03] MEDS: Nicotine Patch Removal NOTE PATCH OFF SCH (23:19)
[2018-09-04] MEDS: Divalproex ER TAB(*) 500 MG PO SCH ×2 (06:30→21:21)
[2018-09-04] MEDS: Nicotine Inhaler* 10 MG AMP INH PRN ×3 (06:30→16:40)
[2018-09-04] MEDS: LORazepam TAB(*) 1 MG PO PRN ×2 (06:30→12:04)
[2018-09-04] MEDS: Ibuprofen TAB* 600 MG PO PRN (07:20)
[2018-09-04] MEDS: Gabapentin CAP(*) 400 MG PO SCH ×2 (07:27→21:21)
[2018-09-04] MEDS: Docusate CAP* 100 MG PO SCH ×2 (08:11→14:16)
[2018-09-04] MEDS: Nicotine PATCH 14 MG/24 HR* PATCH TRANSDERM SCH (08:11)
[2018-09-04] MEDS: risperiDONE-M * 1 MG TAB.ORADIS PO SCH ×2 (08:12→21:21)
[2018-09-04] MEDS: Vitamin THERAPEUTIC TAB PO SCH (08:12)
[2018-09-04] MEDS: Nicotine GUM* 2 MG PO PRN ×2 (12:06→16:40)
[2018-09-04] MEDS ORDERED: Paliperidone SUSTENNA* 234 MG/1.5 ML IM ONE (14:50)
--- NOTE | 2018-09-04 14:54 | PN ---
Subjective - Subjective Date of Service: 09/04/18 Service Type: [id number] Hosp care 15 min low complexity Subjective: Patient taken to court today successfully for treatment over her objection. She is uncooperative and remains non-adherent with medications. She is accepted for transfer to [facility] tomorrow. Objective - Appearance Appearance: Obese Dysmorphic Features: No Hygiene: Normal Grooming: Fairly Well Kept - Behavior Psychomotor Activities: Normal Exhibits Abnormal Movement: No - Attitude and Relatedness Attitude and Relatedness: Psychotically Related Eye Contact: Poor - Speech Quality: Unpressured Latencies: Normal Quantity: Terse - Mood Patient's Decription of Mood: "Terrible" - Affect Observed Affect: Tense Affect Consistent with: Dysphoria - Thought Process Patient's Thought Process: Disorganized Thought Content: Yes Paranoid Ideation, No Passive Wish, No Suicidal Planning, No Homicidal Ideation - Sensorium Experiencing Hallucinations: No, Sensorium is Clear Type of Hallucinations: Visual: No, Auditory: No, Command: No - Level of Consciousness Level of Consciousness: Alert Orientation: Yes Intact, Yes Orientated to Time, Yes Orientated to Place, Yes Orientated to Person - Impulse Control Impulse Control: Poor - Insight and Judgement Insight and Judgement: Impaired - Group Participation Particating in Group Activities: No - Medication Management Medication Management Adherence: No Assessment - Assessment Merits Inpatient Hospitalization: For Immediate Safety, For Stabilization Inpatient DSM-V Dx: F25.0 Clinical Impression: 23 y.o. single, born female with a history of schizoaffective disorder arrives via 9.41 due to agitated, threatening behavior at the [facility], with whom she has an apartment, apparently in the context of poor adherence with medication. Plan - Plan Treatment Plan: Name: SREEDHAR MUKHERJEE Birthdate: 1995 [id number] Continue Depakote and risperidone therapies. Per T.O.O. order, will start paliperidone Sustena 234mg IM times one. Likely transfer to [facility] tomorrow. Continued Medication Management: Continue Outpt Medication Medications: Current Medications Acetaminophen (Tylenol Tab*) 650 mg PO Q4H PRN PRN Reason: for pain; or Temp >101 F Last Admin: 08/19/18 10:57 Dose: 650 mg Al Hydrox/Mg Hydrox/Simethicone (Maalox Plus*) 30 ml PO Q4H PRN PRN Reason: INDIGESTION Last Admin: 08/27/18 18:05 Dose: 30 ml Divalproex Sodium (Depakote Er Tab(*)) 500 mg PO BEDTIME [facility] Last Admin: 09/04/18 06:30 Dose: 500 mg Docusate Sodium (Colace Cap*) 100 mg PO DAILY [facility] Last Admin: 09/04/18 14:16 Dose: 100 mg Gabapentin (Neurontin Cap(*)) 800 mg PO BID [facility] Last Admin: 09/04/18 07:27 Dose: 800 mg Hydroxyzine HCl (Atarax Tab*) 25 mg PO Q4H PRN PRN Reason: anxiety/insomnia Last Admin: 09/03/18 05:41 Dose: 25 mg Ibuprofen (Motrin Tab*) 600 mg PO Q8H PRN PRN Reason: PAIN Last Admin: 09/04/18 07:20 Dose: 600 mg Lidocaine HCl (Lidocaine 4% Topical*) 1 applic TOPICAL Q4H PRN PRN Reason: PAIN Lorazepam (Ativan Tab(*)) 2 mg PO Q4H PRN PRN Reason: ANXIETY AND AGITATION Last Admin: 09/04/18 12:04 Dose: 2 mg Multivitamins (Theragran Tab*) 1 tab PO DAILY [facility] Last Admin: 09/04/18 08:12 Dose: Not Given Nicotine (Nicotine Inhaler*) 10 mg INH Q2H PRN PRN Reason: CRAVING Last Admin: 09/04/18 12:06 Dose: 10 mg Nicotine (Nicotine Patch 14 Mg/24 Hr*) 1 patch TRANSDERM DAILY [facility] Last Admin: 09/04/18 08:11 Dose: Not Given Nicotine Polacrilex (Nicotine Gum*) 2 mg PO Q2H PRN PRN Reason: CRAVINGS Last Admin: 09/04/18 12:06 Dose: 2 mg Pharmacy Profile Note (Nicotine Patch Removal Note*) 1 note PATCH OFF 2100 [facility] Last Admin: 09/03/18 23:19 Dose: Not Given Risperidone (Risperdal-M Tab *) 2 mg PO Q6H PRN; Protocol PRN Reason: Agitation/psychosis Risperidone (Risperdal-M Tab *) 2 mg PO BID [facility]; Protocol Last Admin: 09/04/18 08:12 Dose: Not Given - Discharge Plan Discharge Plan: Consider Longer Term Tx
[2018-09-04] MEDS: hydrOXYzine HCL TAB* 25 MG PO PRN (16:38)
[2018-09-04] MEDS: Nicotine Patch Removal NOTE PATCH OFF SCH (21:21)
[2018-09-05] MEDS: hydrOXYzine HCL TAB* 25 MG PO PRN (06:45)
[2018-09-05] MEDS: risperiDONE-M * 1 MG TAB.ORADIS PO SCH (11:18)
[2018-09-05] MEDS: Nicotine PATCH 14 MG/24 HR* PATCH TRANSDERM SCH (11:18)
[2018-09-05] MEDS: Vitamin THERAPEUTIC TAB PO SCH (11:18)
[2018-09-05] MEDS: Gabapentin CAP(*) 400 MG PO SCH (11:18)
[2018-09-05] MEDS: Docusate CAP* 100 MG PO SCH (11:18)
[2018-09-05] MEDS ORDERED: LORazepam INJ* 2 MG/ML 1 ML VIAL IM ONE (12:00)
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
== END 2018-09-05 11:30 | DRG 750 ==
LOC: ED 11:57 → BSU 21:00
PROVIDERS: ADMIT Psychiatry & Neurology Psychiatry; ATTEND Psychiatry & Neurology Psychiatry
DX: F25.0 Schizoaffective disorder, bipolar type (principal); F41.9 Anxiety disorder, unspecified; G89.29 Other chronic pain; F17.210 Nicotine dependence, cigarettes, uncomplicated; M54.9 Dorsalgia, unspecified; M23.8X2 Other internal derangements of left knee; Z81.8 Family history of other mental and behavioral disorders; Z88.0 Allergy status to penicillin; Z78.1 Physical restraint status; Z91.14 Patient's other noncompliance with medication regimen; E66.9 Obesity, unspecified; Z68.29 Body mass index [BMI] 29.0-29.9, adult
CPT/HCPCS: 36415; 80053; 80061; 80164; 80320; 80329; 83036; 84443; 84702; 85025; 85660; 93005; 99222; 99231; 99232; 99238; 99284; A9270-GY; G0480; J0515; J1630; J2060; J3486

== ENCOUNTER 2019-06-12 15:40 | Emergency (ER) | payer MEDICARE, MEDICAID ==
[2019-06-12] MEDS ORDERED: LORazepam INJ* 2 MG/ML 1 ML VIAL ONE ×2 (16:00→18:00)
--- NOTE | 2019-06-12 16:26 | ED ---
Complex/Multi-Sys Presentation - HPI Summary HPI Summary: Patient is a 24 y/o F presenting to [facility] under 9.45 status. Nurse Leo reports that the patient had HR of 150s in triage that was confirmed via palpation. Patient states that she is feeling dehydrated. Patient has had multiple previous visits per medical records. It is noted that the patient has been combative and uncooperative during previous visits to ED and in-patient psychiatric unit. For this visit, patient is cooperating, but very slowly. She reports no chance of . LNMP was not in last thirty days, notes that her menstrual cycle is sporadic. She is not on control. She was asked to undress to her skin, but when EKG was done, she still had metal back brace on. On triage, pain is denied, nothing is noted to aggravate/alleviate Sx. Home medications and allergies are reviewed. She is a level 5 caveat due to unwillingness to cooperate with evaluation. Per Idalia Marte, [employer], note LABS Collateral Dr. Meli Maddox from [facility] phoned concerning patient she stated that patient is an AOT. She requested that lab work be done to show whether patient has been compliant with her medications. Because patient is an AOT, she needs the results. Patient has been has a diagnosis of Schizo Affective disorder. She has missed 2 appointments and a home visit was done. Patient has been having increased psychosis with increased bizarre behavior. Her medications are: Olanzapine 15 mg/day Depakote 500/day Cogentin 1 mg/day Gabapentin 800 /day Dr. Meli Maddox [phone] Karlo Ashley - [facility] therapist phoned and confirmed information. - History Of Current Complaint Hx Obtained From: Patient - minimal, Medical Records, Other: - Idalia Marte social science instructor with collateral Hx From Patient Unobtainable Due To: Other - level 5 caveat due to unwillingness to cooperate with evaluation. Onset/Duration: Still Present Timing: Constant Severity Currently: None - pain denied on triage Aggravating Factor(s): nothing Alleviating Factor(s): nothing Associated Signs And Symptoms: Positive: Other - dehydration, 9.45 status Related History: Other - pt is on AOT, and has missed appts. - Allergies/Home Medications Allergies/Adverse Reactions: Allergies Allergy/AdvReac Type Severity Reaction Status Date / Time Penicillins Allergy Intermediate Rash Verified 02/08/18 18:41 Home Medications: Home Medications Benztropine TAB* [Cogentin TAB*] 1 mg PO BID 06/12/19 [History Confirmed ] Divalproex ER TAB(*) [Depakote ER TAB(*)] 500 mg PO BEDTIME 06/12/19 [History Confirmed 06/12/19] Gabapentin CAP(*) [Neurontin 400 mg CAP(*)] 800 mg PO BID 06/12/19 [History Confirmed 06/12/19] OLANzapine TAB* [Zyprexa 10 MG TAB*] 15 mg PO DAILY 06/12/19 [History Confirmed 06/12/19] PMH/Surg Hx/FS Hx/Imm Hx Previously Healthy: No Endocrine/Hematology History: Denies: Hx Diabetes Cardiovascular History: Denies: Hx Hypertension, Hx Pacemaker/ICD Respiratory History: Denies: Hx Asthma History: Denies: Hx Renal Disease Musculoskeletal History: Reports: Hx Back Problems - Chronic back pain- no objective functional problems observed Sensory History: Denies: Hx Cataracts, Hx Contacts or Glasses, Hx Eye Injury, Hx Eye Prosthesis, Hx Hearing Aid Opthamlomology History: Denies: Hx Cataracts, Hx Contacts or Glasses, Hx Eye Injury, Hx Eye Prosthesis Psychiatric History: Reports: Hx Anxiety, Hx Depression, Hx Inpatient Treatment , Hx Community Mental Health Tx, Hx Schizophrenia, Hx Bipolar Disorder, Hx of Violent Episodes Against Others - pt has been combative in the ED and [facility] , Hx Substance Abuse - Marijuana, K2 Denies: Hx Eating Disorder, Hx Panic Disorder - Surgical History Surgical History: None Surgery Procedure, Year, and Place: None - Immunization History Date of Tetanus Vaccine: unk Date of Influenza Vaccine: unk Infectious Disease History: No - Family History Known Family History: Positive: Other - possible schizophrenia and depression to father. Brother -- autism - Social History Alcohol Use: None Hx Substance Use: No Substance Use Type: Reports: None Substance Use Comment - Amount & Last Used: Vague regarding amount and frequency , only acknowledges the use Hx Tobacco Use: Yes Smoking Status (MU): Current Every Day Smoker Type: Cigarettes Amount Used/How Often: 3-4 sig a day Length of Time of Smoking/Using Tobacco: patient has smoked cigarettes within the last 30 days. Have You Smoked in the Last Year: Yes Review of Systems - ROS Summary Review of Systems Summary: level 5 caveat due to unwillingness to cooperate with evaluation. Constitutional: Other - positive - dehydration Negative: Fever - on vitals, temp is 98.4 F Psychological: Other - per social science instructor note, increased psychosis, bizarre behavior, poor cooperation in ED, poor eye contact, minimal answers to questions All Other Systems Reviewed And Are Negative: No - Comments Additional Review of Systems Comments: level 5 caveat due to unwillingness to cooperate with evaluation. Physical Exam - Summary Physical Exam Summary: Appearance: Well-appearing, no pain distress, well-nourished Skin: Warm, color reflects adequate perfusion, dry Head: Normal Head/Face inspection, atraumatic Eyes: Conjunctiva clear ENT: Normal inspection Neck: Supple, no nodes, no JVD Respiratory: Lungs clear, normal breath sounds, no respiratory distress Cardio: RRR, No murmur, pulses normal, brisk capillary refill Abdomen: Soft, nontender Bowel sounds: Present Musculoskeletal: Strength Intact/ROM intact, no calf tenderness, no edema. Psychological: Suspicious of staff, asks many questions, remains calm if allowed time to react to requests Neuro: Alert, muscle tone normal, no focal deficit Triage Information Reviewed: Yes Vital Signs On Initial Exam: Initial Vitals Temp Pulse Resp BP Pulse Ox 98.4 F 152 16 149/122 99 06/12/19 15:56 06/12/19 15:56 06/12/19 15:56 06/12/19 15:56 06/12/19 15:56 Vital Signs Reviewed: Yes Completion Of Physical Exam Limited Due To: Level 5 Procedures - Sedation Patient Received Moderate/Deep Sedation with Procedure: No Diagnostics - Laboratory Result Diagrams: 06/12/19 16:36 06/12/19 16:36 Lab Statement: Any lab studies that have been ordered have been reviewed, and results considered in the medical decision making process. - EKG 1617 Cardiac Rate: Tachycardia - rate of 108 BPM EKG Rhythm: Sinus Tachycardia ST Segment: Non-Specific Ectopy: None EKG Comparison: No Significant Change - compared to 08/15/18 EKG Summary of EKG Findings: EKG showed sinus tachycardia with rate of 108 BPM, nml AVIVCT, nml QTc, no acute changes, compared to 08/15/18, EKG is unchanged. EKG was reviewed and interpreted by Dr. Hand. Re-Evaluation - Re-Evaluation First Eval Re-Evaluation Time: 17:34 Change: Improved Comment: She is agreeable with Ativan 2 mg PO. Second Eval Re-Evaluation Time: 18:30 Change: Unchanged Comment: She is medially cleared for MHE. Third Eval Re-Evaluation Time: 20:15 Change: Unchanged Comment: Pt is resting, has eaten and been drinking. No complaints. Fourth Eval Re-Evaluation Time: 22:50 Change: Unchanged Comment: Pt remains calm. Allows vitals. Nighttime bid meds and additional Ativan given to pt. Complex Multi-Symp Course/Dx Course Of Treatment: Patient is a 24 y/o F presenting to [facility] under 9.45 status. Nurse Leo reports that the patient had HR of 150s in triage that was confirmed via palpation. Patient states that she is feeling dehydrated. Patient has had multiple previous visits per medical records. It is noted that the patient has been combative and uncooperative during previous visits to ED and in -patient psychiatric unit. For this visit, patient is cooperating, but very slowly. She reports no chance of . LNMP was not in last thirty days, notes that her menstrual cycle is sporadic. She is not on control. She was asked to undress to her skin, but when EKG was done, she still had metal back brace on. On triage, pain is denied, noting is noted to aggravate/ alleviate Sx. Home medications and allergies are reviewed. Per Idalia Marte, [employer], note LABS Collateral. Dr. Meli Maddox from [facility] phoned concerning patient she stated that patient is an AOT. She requested that lab work be done to show whether patient has been compliant with her medications. Because patient is an AOT, she needs the results. Patient has been has a diagnosis of Schizo Affective disorder. She has missed 2 appointments and a home visit was done. Patient has been having increased psychosis with increased bizarre behavior. Her medications are: Olanzapine 15 mg/day. Depakote 500/ day. Cogentin 1 mg/day. Gabapentin 800 /day. Dr. Meli Maddox [phone]. Karlo Ashley - [facility] therapist phoned and confirmed information.. EKG showed sinus tachycardia with rate of 108 BPM, nml AVIVCT, nml QTc, no acute changes, compared to 12/13/18, EKG is unchanged. EKG was done for HR of 150 at triage. Bloodwork was obtained. Abnormal values include sodium 133, glucose 118, total creatinine kinase 300. UA negative. Tox screen showed valproic acid of 37 (low) . Her urine tox screen and alcohol level were negative. Patient received 2 mg PO Ativan that she took willingly so that she could remain calm. She was medically cleared for MHE. Pt's pulse and BP both returned to more normal levels while she was in the ED. She was given evening meds of Gabapentin 800mg, Cogentin 1mg, Divalproex ER 500mg and additional Ativan 2mg at 1050pm. A nicotine patch was also applied as pt is an every day smoker. Pt has eaten and drunk fluids in the ED and has remained in behavioral control Patient was signed -out to Dr. Hill at 2200 06/12/19 shift change pending MHE and disposition. - Diagnoses Provider Diagnoses: Schizoaffective disorder Discharge ED - Sign-Out/Discharge Documenting (check all that apply): Sign-Out Patient Signing out patient TO: Bandar Hill - Discharge Plan Condition: Stable Referrals: Odessa Schafer MD [Primary Care Provider] - - Billing Disposition and Condition Condition: STABLE - Attestation Statements Document Initiated by Gómez: Yes Documenting Scribe: HANSEL HARRINGTON Provider For Whom Gómez is Documenting (Include Credential): HEIKE HAND MD Scribe Attestation: HANSEL Calderón, scribed for HEIKE HAND MD on 06/12/19 at 2308. Scribe Documentation Reviewed: Yes Provider Attestation: The documentation as recorded by the HANSEL pastor accurately reflects the service I personally performed and the decisions made by me, HEIKE HAND MD Status of Scribe Document: Viewed
[2019-06-12] MEDS ORDERED: LORazepam TAB(*) 1 MG PO ONE ×2 (16:37→22:28)
[2019-06-12 17:04] LABS: ALT 10 U/L (7-52); AST 17 U/L (13-39); Albumin 4.2 g/dL (3.2-5.2); Albumin/Globulin Ratio 1.6 (1-3); Alkaline Phosphatase 66 U/L (34-104); Anion Gap 5 mmol/L (2-11); BUN/Creatinine Ratio 11.1 (8-20); Blood Urea Nitrogen 9 mg/dL (6-24); CO2 Carbon Dioxide 23 mmol/L (22-32); Calcium 9.1 mg/dL (8.6-10.3); Chloride 105 mmol/L (101-111); Creatine Kinase 300 U/L (10-223); EGFR Non-African American 87.6 (>60); Globulin 2.7 g/dL (2-4); Glucose 118 mg/dL (70-100); Potassium 3.7 mmol/L (3.5-5.0); Sodium 133 mmol/L (135-145); Total Protein 6.9 g/dL (6.4-8.9)
[2019-06-12 17:07] LABS: ABS Monocytes 0.5 10^3/ul (0-0.8); Eosinophil % 0.3 %; Hematocrit 38 % (35-47); Hemoglobin 12.8 g/dL (12.0-16.0); Lymphocyte % 30.8 %; Mean Corpuscular HGB Conc 34 g/dL (31-36); Mean Corpuscular Hemoglobin 29 pg (27-31); Mean Corpuscular Volume 84 fL (80-97); Mean Platelet Volume 8.1 fL (7.4-10.4); Nucleated Red Blood Cells % 0.1; Platelet Count 260 10^3/uL (150-450); Red Blood Count 4.49 10^6 /uL (3.70-4.87); Red Cell Distribution Width 14 % (10-15); White Blood Count 6.6 10^3/uL (3.5-10.8)
[2019-06-12 17:11] LABS: HCG Pregnancy < 0.60 mIU/mL
[2019-06-12 17:14] LABS: Acetaminophen < 15 mcg/mL; Alcohol < 10 mg/dL (<10); Salicylate < 2.50 mg/dL (<30)
[2019-06-12 17:25] LABS: Urine Appearance Clear; Urine Bilirubin Negative (Negative); Urine Blood Negative (Negative); Urine Color Yellow; Urine Glucose Negative (Negative); Urine Ketones Negative (Negative); Urine Nitrite Negative (Negative); Urine Protein Negative (Negative); Urine Specific Gravity 1.005 (1.010-1.030); Urine Urobilinogen Negative (Negative)
[2019-06-12 17:28] LABS: TSH (Thyroid Stimulating Horm) 1.32 mcIU/mL (0.34-5.60)
[2019-06-12 17:51] LABS: Urine Benzodiazepine Screen None Detected (None Detect); Urine Opiates Screen None Detected (None Detect)
[2019-06-12] MEDS ORDERED: Haloperidol INJ IV/IM* 5 MG/ML AMP ONE (18:00)
[2019-06-12] MEDS ORDERED: diPHENhydraMINE IV* 50 MG/ML 1 ml VIAL (BENADRYL) ONE (18:00)
[2019-06-12] MEDS ORDERED: Benztropine TAB* 1 MG PO ONE (22:32)
[2019-06-12] MEDS ORDERED: Divalproex ER TAB(*) 500 MG PO ONE (22:32)
[2019-06-12] MEDS ORDERED: Gabapentin CAP(*) 400 MG PO ONE (22:33)
[2019-06-12] MEDS ORDERED: Gabapentin CAP(*) 300 MG PO ONE (22:33)
[2019-06-12] MEDS ORDERED: Nicotine PATCH 7 MG/24 HR* PATCH TRANSDERM ONE (23:13)
--- NOTE | 2019-06-13 00:48 | ED ---
Progress - Progress Note Progress Note: Pt is a sign-out from Dr. Myrick at 22:00 on 06/12/19. At 00:41 on 06/13/19, MH credit relationship manager reports that Dr. Lanza reviewed pts case. Pt will be discharged with a diagnosis of schizoaffective disorder. Blast Setter feels comfortable w discharge after obtaining collateral. I expressed Dr. Myrick's concerns to him about admission. Dr. Lanza agrees w discharge. - Consult/PCP Time Called: 23:14 Re-Evaluation - Re-Evaluation First Eval Re-Evaluation Time: 17:34 Change: Improved Comment: She is agreeable with Ativan 2 mg PO. Second Eval Re-Evaluation Time: 18:30 Change: Unchanged Comment: She is medially cleared for MHE. Third Eval Re-Evaluation Time: 20:15 Change: Unchanged Comment: Pt is resting, has eaten and been drinking. No complaints. Fourth Eval Re-Evaluation Time: 22:50 Change: Unchanged Comment: Pt remains calm. Allows vitals. Nighttime bid meds and additional Ativan given to pt. Course/Dx - Diagnoses Provider Diagnoses: Schizoaffective disorder Discharge ED - Sign-Out/Discharge Documenting (check all that apply): Patient Departure - Discharge Plan Condition: Stable Disposition: HOME Patient Education Materials: Schizoaffective Disorder (ED) Referrals: Odessa Schafer MD [Primary Care Provider] - aTn GOINS,Meli Montague [Medical Doctor] - As Soon As Possible (Please attend your next scheduled appointment, and/or schedule an appointment as soon as possible.) - Billing Disposition and Condition Condition: STABLE Disposition: Home - Attestation Statements Document Initiated by Goldieibe: Yes Documenting Scribe: Katarzyna Cobb Provider For Whom Gómez is Documenting (Include Credential): Bandar Hill MD Scribe Attestation: I, Katarzyna Cobb, scribed for Bandar Hill MD on 06/13/19 at 0105. Scribe Documentation Reviewed: Yes Provider Attestation: The documentation as recorded by the Katarzyna pastor accurately reflects the service I personally performed and the decisions made by me, Bandar Hill MD Status of Scribe Document: Viewed
[2019-06-13 01:03] VITALS: BP 111/64
== END 2019-06-13 00:55 | disposition home or self-care (01) ==
LOC: ED 15:40
DX: F25.9 Schizoaffective disorder, unspecified (principal); Z79.899 Other long term (current) drug therapy; F41.9 Anxiety disorder, unspecified; F17.210 Nicotine dependence, cigarettes, uncomplicated
CPT/HCPCS: 36415; 80053; 80164; 80307; 80320; 80329; 81003; 82550; 84443; 84702; 85025; 93005; 99284; A9270-GY; G0480; J1200; J1630; J2060

== ENCOUNTER 2022-09-19 15:02 | Inpatient (IN) ==
[2022-09-19 17:11] LABS: Urine Appearance Cloudy; Urine Bilirubin Negative (Negative); Urine Blood Negative (Negative); Urine Color Yellow; Urine Glucose Negative (Negative); Urine Ketones Negative (Negative); Urine Nitrite Negative (Negative); Urine Protein Negative (Negative); Urine Specific Gravity 1.023 (1.002-1.030); Urine Urobilinogen Negative (Negative)
[2022-09-19 17:11] LABS: ABS Lymphocytes 2.2 10^3/ul (1.0-4.8); ABS Monocytes 0.5 10^3/ul (0-0.8); ABS Neutrophils 3.8 10^3/ul (1.5-7.7); Eosinophil % 0.6 %; Hematocrit 38 % (35-47); Hemoglobin 12.3 g/dL (12.0-16.0); Lymphocyte % 33.5 %; Mean Corpuscular HGB Conc 33 g/dL (31-36); Mean Corpuscular Hemoglobin 27 pg (27-31); Mean Corpuscular Volume 83 fL (80-97); Mean Platelet Volume 7.5 fL (7.4-10.4); Nucleated Red Blood Cells % 0.2; Platelet Count 376 10^3/uL (150-450); Red Blood Count 4.53 10^6 /uL (3.70-4.87); Red Cell Distribution Width 16 % (10-15); White Blood Count 6.5 10^3/uL (3.5-10.8)
[2022-09-19 17:28] LABS: Urine Benzodiazepine Screen None Detected (None Detect); Urine Cannabinoids Screen Presumptive Positive (None Detect); Urine Opiates Screen None Detected (None Detect)
[2022-09-19 17:30] LABS: ALT 8 U/L (7-52); AST 11 U/L (13-39); Acetaminophen < 15 mcg/mL; Albumin 4.2 g/dL (3.2-5.2); Albumin/Globulin Ratio 1.5 (1-3); Alcohol, S < 13 mg/dL (<13); Alkaline Phosphatase 60 U/L (35-149); Anion Gap 5 mmol/L (2-11); Blood Urea Nitrogen 10 mg/dL (6-24); CO2 Carbon Dioxide 25 mmol/L (22-32); Calcium 9.3 mg/dL (8.6-10.3); Chloride 108 mmol/L (101-111); Creatinine, Serum 0.75 mg/dL (0.51-0.95); Globulin 2.8 g/dL (2-4); Glucose 88 mg/dL (70-100); Potassium 4.2 mmol/L (3.5-5.0); Salicylate < 2.50 mg/dL (<30); Sodium 138 mmol/L (135-145); eGFR CKD-EPI 112.5 (>60)
[2022-09-19 17:42] LABS: TSH Ultra Thyroid Stim Horm 0.87 mcIU/mL (0.34-5.60)
[2022-09-20] MEDS ORDERED: OLANZapine 10 mg TAB*ODT PO PRN (04:12)
[2022-09-20] MEDS: Vitamin THERAPEUTIC TAB PO SCH (09:57)
[2022-09-21] MEDS: Vitamin THERAPEUTIC TAB PO SCH (08:09)
[2022-09-21 08:16] LABS: HDL Cholesterol 51.8 mg/dL
[2022-09-22] MEDS: Vitamin THERAPEUTIC TAB PO SCH (08:45)
[2022-09-23] MEDS: Vitamin THERAPEUTIC TAB PO SCH (08:35)
[2022-09-24] MEDS: Vitamin THERAPEUTIC TAB PO SCH (09:21)
[2022-09-25] MEDS: Vitamin THERAPEUTIC TAB PO SCH (08:25)
[2022-09-25] MEDS: Nicotine GUM 2MG FRUIT FLAVOR PO PRN (19:51)
[2022-09-26] MEDS: Vitamin THERAPEUTIC TAB PO SCH (09:52)
[2022-09-26] MEDS: Nicotine GUM 2MG FRUIT FLAVOR PO PRN ×2 (13:57→21:33)
[2022-09-27] MEDS: Vitamin THERAPEUTIC TAB PO SCH (08:25)
[2022-09-27] MEDS: Nicotine GUM 2MG FRUIT FLAVOR PO PRN ×3 (09:15→18:22)
[2022-09-28] MEDS: Vitamin THERAPEUTIC TAB PO SCH (08:34)
[2022-09-28] MEDS: Nicotine GUM 2MG FRUIT FLAVOR PO PRN ×4 (08:59→22:41)
[2022-09-29] MEDS: Vitamin THERAPEUTIC TAB PO SCH (08:09)
[2022-09-29] MEDS ORDERED: risperiDONE-M 1 mg Oradis TAB PO SCH (09:00)
[2022-09-29] MEDS: Nicotine GUM 2MG FRUIT FLAVOR PO PRN (17:53)
[2022-09-29] MEDS: risperiDONE-M 1 mg Oradis TAB PO SCH (21:35)
[2022-09-30] MEDS: risperiDONE-M 1 mg Oradis TAB PO SCH ×2 (10:03→20:01)
[2022-09-30] MEDS: Vitamin THERAPEUTIC TAB PO SCH (10:03)
[2022-09-30] MEDS: OLANZapine 5 mg TAB *ODT PO PRN (18:34)
[2022-09-30] MEDS: Nicotine GUM 2MG FRUIT FLAVOR PO PRN (23:40)
[2022-10-01] MEDS: risperiDONE-M 1 mg Oradis TAB PO SCH ×2 (07:21→20:10)
[2022-10-01] MEDS: Vitamin THERAPEUTIC TAB PO SCH (07:22)
[2022-10-01] MEDS: OLANZapine 5 mg TAB *ODT PO PRN (08:52)
[2022-10-01] MEDS: Nicotine GUM 2MG FRUIT FLAVOR PO PRN ×2 (09:31→16:20)
[2022-10-02] MEDS: Vitamin THERAPEUTIC TAB PO SCH (09:40)
[2022-10-02] MEDS: risperiDONE-M 1 mg Oradis TAB PO SCH ×2 (09:40→20:11)
[2022-10-02] MEDS: Nicotine GUM 2MG FRUIT FLAVOR PO PRN (18:15)
[2022-10-02] MEDS ORDERED: OLANZapine 10 mg TAB*ODT PO SCH (21:00)
[2022-10-03] MEDS: risperiDONE-M 1 mg Oradis TAB PO SCH (08:50)
[2022-10-03] MEDS: Vitamin THERAPEUTIC TAB PO SCH (08:50)
[2022-10-03] MEDS: OLANZapine 5 mg TAB *ODT PO SCH (20:24)
[2022-10-04] MEDS: risperiDONE-M 1 mg Oradis TAB PO SCH (09:28)
[2022-10-04] MEDS: Vitamin THERAPEUTIC TAB PO SCH (09:29)
[2022-10-04] MEDS: OLANZapine 5 mg TAB *ODT PO SCH (20:27)
[2022-10-05] MEDS: Vitamin THERAPEUTIC TAB PO SCH (08:17)
[2022-10-05] MEDS: Nicotine GUM 2MG FRUIT FLAVOR PO PRN (12:23)
[2022-10-05] MEDS: OLANZapine 5 mg TAB *ODT PO SCH (21:39)
[2022-10-06] MEDS: Nicotine GUM 2MG FRUIT FLAVOR PO PRN ×3 (06:10→17:28)
[2022-10-06] MEDS: Vitamin THERAPEUTIC TAB PO SCH (08:40)
[2022-10-06] MEDS: OLANZapine 10 mg TAB*ODT PO SCH (20:07)
[2022-10-07] MEDS: Nicotine GUM 2MG FRUIT FLAVOR PO PRN ×2 (07:24→19:23)
[2022-10-07] MEDS: Vitamin THERAPEUTIC TAB PO SCH (07:25)
[2022-10-07] MEDS: OLANZapine 10 mg TAB*ODT PO SCH (21:10)
[2022-10-08] MEDS: Vitamin THERAPEUTIC TAB PO SCH (09:16)
[2022-10-08] MEDS: OLANZapine 10 mg TAB*ODT PO SCH (21:09)
[2022-10-08] MEDS: Nicotine GUM 2MG FRUIT FLAVOR PO PRN (21:15)
[2022-10-09] MEDS: Vitamin THERAPEUTIC TAB PO SCH (10:06)
[2022-10-09] MEDS: Nicotine GUM 2MG FRUIT FLAVOR PO PRN ×2 (16:07→20:59)
[2022-10-09] MEDS: Haloperidol LIQ ORALSYR 2 MG/ML PO SCH (20:00)
[2022-10-09] MEDS: OLANZapine 10 mg TAB*ODT PO SCH (20:01)
[2022-10-10] MEDS: Nicotine GUM 2MG FRUIT FLAVOR PO PRN (06:27)
[2022-10-10] MEDS: Vitamin THERAPEUTIC TAB PO SCH (09:22)
[2022-10-10] MEDS: Haloperidol LIQ ORALSYR 2 MG/ML PO SCH ×2 (09:22→20:45)
[2022-10-10] MEDS: OLANZapine 10 mg TAB*ODT PO SCH (20:48)
[2022-10-11] MEDS: Vitamin THERAPEUTIC TAB PO SCH (07:40)
[2022-10-11] MEDS: Haloperidol LIQ ORALSYR 2 MG/ML PO SCH ×2 (07:41→20:55)
[2022-10-11] MEDS ORDERED: Polyethylene Glycol 3350 17 GM PACKET PO PRN (12:00)
[2022-10-11] MEDS: Nicotine GUM 2MG FRUIT FLAVOR PO PRN (17:00)
[2022-10-11] MEDS: OLANZapine 10 mg TAB*ODT PO SCH (20:54)
[2022-10-12] MEDS: Nicotine GUM 2MG FRUIT FLAVOR PO PRN (07:53)
[2022-10-12] MEDS: Vitamin THERAPEUTIC TAB PO SCH (07:53)
[2022-10-12] MEDS: Haloperidol LIQ ORALSYR 2 MG/ML PO SCH ×2 (08:58→21:28)
[2022-10-12] MEDS: OLANZapine 10 mg TAB*ODT PO SCH (21:28)
[2022-10-13] MEDS: Haloperidol LIQ ORALSYR 2 MG/ML PO SCH ×2 (08:52→21:16)
[2022-10-13] MEDS: Vitamin THERAPEUTIC TAB PO SCH (08:53)
[2022-10-13] MEDS: Nicotine GUM 2MG FRUIT FLAVOR PO PRN (14:10)
[2022-10-13] MEDS: OLANZapine 10 mg TAB*ODT PO SCH (21:15)
[2022-10-14] MEDS: Vitamin THERAPEUTIC TAB PO SCH (10:02)
[2022-10-14] MEDS: Haloperidol LIQ ORALSYR 2 MG/ML PO SCH (10:04)
[2022-10-15] MEDS: OLANZapine 10 mg TAB*ODT PO SCH ×2 (00:39→20:26)
[2022-10-15] MEDS: Haloperidol LIQ ORALSYR 2 MG/ML PO SCH ×3 (00:40→20:26)
[2022-10-15] MEDS: Vitamin THERAPEUTIC TAB PO SCH (09:46)
[2022-10-15] MEDS: Nicotine GUM 2MG FRUIT FLAVOR PO PRN (22:09)
[2022-10-16] MEDS: Vitamin THERAPEUTIC TAB PO SCH (10:09)
[2022-10-16] MEDS: Haloperidol LIQ ORALSYR 2 MG/ML PO SCH ×2 (10:14→22:57)
[2022-10-16] MEDS: OLANZapine 10 mg TAB*ODT PO SCH (22:57)
[2022-10-17] MEDS: Vitamin THERAPEUTIC TAB PO SCH (10:22)
[2022-10-17] MEDS: Haloperidol LIQ ORALSYR 2 MG/ML PO SCH ×2 (10:22→20:54)
[2022-10-17] MEDS: OLANZapine 10 mg TAB*ODT PO SCH (20:53)
[2022-10-17] MEDS: Nicotine GUM 2MG FRUIT FLAVOR PO PRN (21:00)
[2022-10-18] MEDS: Vitamin THERAPEUTIC TAB PO SCH (09:59)
[2022-10-18] MEDS: Haloperidol LIQ ORALSYR 2 MG/ML PO SCH ×2 (10:00→20:40)
[2022-10-18] MEDS: OLANZapine 10 mg TAB*ODT PO SCH (20:40)
[2022-10-19] MEDS: Haloperidol LIQ ORALSYR 2 MG/ML PO SCH ×2 (09:42→20:45)
[2022-10-19] MEDS: Vitamin THERAPEUTIC TAB PO SCH (11:20)
[2022-10-19] MEDS: OLANZapine 10 mg TAB*ODT PO SCH (20:45)
[2022-10-20] MEDS: Haloperidol LIQ ORALSYR 2 MG/ML PO SCH (09:31)
[2022-10-20] MEDS: Vitamin THERAPEUTIC TAB PO SCH (09:36)
[2022-10-20] MEDS: OLANZapine 10 mg TAB*ODT PO SCH (19:55)
[2022-10-21] MEDS: Vitamin THERAPEUTIC TAB PO SCH (09:13)
[2022-10-21] MEDS: Nicotine GUM 2MG FRUIT FLAVOR PO PRN ×2 (16:29→22:19)
[2022-10-21] MEDS: OLANZapine 10 mg TAB*ODT PO SCH (21:55)
[2022-10-22] MEDS: Vitamin THERAPEUTIC TAB PO SCH (10:11)
[2022-10-22] MEDS: OLANZapine 10 mg TAB*ODT PO SCH (23:09)
[2022-10-23] MEDS: Vitamin THERAPEUTIC TAB PO SCH (09:41)
[2022-10-23] MEDS: OLANZapine 10 mg TAB*ODT PO SCH (19:56)
[2022-10-24] MEDS: Vitamin THERAPEUTIC TAB PO SCH (09:37)
[2022-10-24] MEDS: Nicotine GUM 2MG FRUIT FLAVOR PO PRN ×2 (17:50→20:00)
[2022-10-24] MEDS: Al Hydrox/Mg Hydrox/Simet LIQ 30 ML UDC PO PRN (19:08)
[2022-10-24] MEDS: OLANZapine 10 mg TAB*ODT PO SCH (20:22)
[2022-10-25] MEDS: Vitamin THERAPEUTIC TAB PO SCH (11:00)
[2022-10-25] MEDS: OLANZapine 10 mg TAB*ODT PO SCH (20:10)
[2022-10-25] MEDS: Al Hydrox/Mg Hydrox/Simet LIQ 30 ML UDC PO PRN (21:09)
[2022-10-26] MEDS: Vitamin THERAPEUTIC TAB PO SCH (09:21)
[2022-10-26] MEDS: OLANZapine 10 mg TAB*ODT PO SCH (20:42)
[2022-10-27] MEDS: Vitamin THERAPEUTIC TAB PO SCH (09:45)
[2022-10-27] MEDS: OLANZapine 10 mg TAB*ODT PO SCH (20:51)
[2022-10-27] MEDS: Nicotine GUM 2MG FRUIT FLAVOR PO PRN (21:52)
[2022-10-28] MEDS: Vitamin THERAPEUTIC TAB PO SCH (08:54)
[2022-10-28] MEDS: Nicotine GUM 2MG FRUIT FLAVOR PO PRN ×2 (17:32→21:02)
[2022-10-28] MEDS: Al Hydrox/Mg Hydrox/Simet LIQ 30 ML UDC PO PRN ×2 (18:21→22:18)
[2022-10-28] MEDS: OLANZapine 10 mg TAB*ODT PO SCH (21:02)
[2022-10-29] MEDS: Vitamin THERAPEUTIC TAB PO SCH (08:42)
[2022-10-29] MEDS: OLANZapine 10 mg TAB*ODT PO SCH (21:42)
[2022-10-30] MEDS: Vitamin THERAPEUTIC TAB PO SCH (09:41)
[2022-10-30 12:57] VITALS: BP 113/49
[2022-10-30] MEDS: Nicotine GUM 2MG FRUIT FLAVOR PO PRN ×4 (15:07→23:07)
[2022-10-30] MEDS: OLANZapine 10 mg TAB*ODT PO SCH (21:02)
[2022-10-31] MEDS: Vitamin THERAPEUTIC TAB PO SCH (09:18)
[2022-10-31] MEDS: Nicotine GUM 2MG FRUIT FLAVOR PO PRN (14:50)
== END 2022-10-31 15:15 | disposition home or self-care (01) | DRG 885 ==
LOC: ED 15:02 → BSU 09-20 03:00
PROVIDERS: ADMIT Psychiatry & Neurology Psychiatry; ATTEND Psychiatry & Neurology Psychiatry

== ENCOUNTER 2023-12-21 18:20 | Inpatient (IN) ==
[2023-12-21 19:34] LABS: ABS Lymphocytes 1.6 10^3/uL (1.0-4.8); ABS Monocytes 0.5 10^3/uL (0.0-0.9); ABS Neutrophils 5.6 10^3/uL (1.5-7.6); ABS Nucleated RBC 0.02 10^3/ul; Eosinophil % 0.1 %; Hematocrit 37.8 % (35-45); Hemoglobin 12.4 g/dL (11.5-14.3); Lymphocyte % 20.9 %; Mean Corpuscular Hemoglobin 26.7 pg (27-33); Mean Corpuscular Hgb Conc 32.8 g/dL (31-36); Mean Corpuscular Volume 81.4 fL (80-97); Mean Platelet Volume 7.9 fL (7.5-11.2); Nucleated Red Blood Cells % 0.2 %/100WBC (0.0-0.8); Platelet Count 335 10^3/uL (150-450); Red Blood Count 4.64 10^6/uL (3.63-4.92); Red Cell Distribution Width 15.6 % (12-17); White Blood Count 7.8 10^3/uL (3.8-11.8)
[2023-12-21] MEDS ORDERED: Lorazepam PYXIS KEY PRN (20:44)
[2023-12-21 20:49] LABS: ALT 8 U/L (7-52); AST 13 U/L (13-39); Acetaminophen < 15 mcg/mL; Albumin 4.7 g/dL (3.2-5.2); Albumin/Globulin Ratio 1.7 (1-3); Alcohol, S < 13 mg/dL (<13); Alkaline Phosphatase 79 U/L (35-149); Anion Gap 15 mmol/L (2-16); Blood Urea Nitrogen 18 mg/dL (6-24); CO2 Carbon Dioxide 20 mmol/L (22-32); Calcium 10.1 mg/dL (8.6-10.3); Chloride 102 mmol/L (101-111); Creatine Kinase 258 U/L (10-223); Creatinine, Serum 1.03 mg/dL (0.51-0.95); Globulin 2.8 g/dL (2-4); Glucose 88 mg/dL (70-100); Potassium 4.3 mmol/L (3.5-5.0); Salicylate < 2.50 mg/dL (<30); Sodium 137 mmol/L (135-145); Total Bilirubin 0.8 mg/dL (0.2-1.0); Total Protein 7.5 g/dL (6.4-8.9); eGFR CKD-EPI 76.4 (>60)
[2023-12-21] MEDS: Haloperidol 5 mg/ml SDV IV/IM 5 MG/ML AMP IM ONE (20:54)
[2023-12-21] MEDS: LORazepam 2 mg VIAL 1 ml IM ONE (20:54)
[2023-12-21 20:56] LABS: HCG Pregnancy < 0.60 mIU/mL
[2023-12-21 22:10] LABS: Urine Benzodiazepine Screen None Detected (None Detect); Urine Cannabinoids Screen Presumptive Positive (None Detect); Urine Opiates Screen None Detected (None Detect)
[2023-12-21 22:13] LABS: Urine Appearance Clear; Urine Bilirubin Negative (Negative); Urine Blood 3+ (Negative); Urine Color Yellow; Urine Glucose Negative (Negative); Urine Ketones 3+ (Negative); Urine Nitrite Negative (Negative); Urine Protein 1+ (>=30 mg/dL) (Negative); Urine Urobilinogen 1+ (Negative)
[2023-12-21 22:21] LABS: Urine Bacteria Absent /HPF (Absent); Urine Red Blood Cell 3+(>10/hpf) /HPF (0-Trace); Urine Squamous Epithelial Cell Present /HPF (Absent); Urine White Blood Cell 1+(6-10/hpf) /HPF (0-Trace)
[2023-12-22] MEDS: Ketamine HCL 50 mg/ml 10 ml VIAL (500 MG) IM ONE (01:12)
[2023-12-22] MEDS: Vitamin THERAPEUTIC TAB PO SCH (07:05)
[2023-12-23 22:15] VITALS: BP 125/61
[2023-12-24] MEDS: risperiDONE-M 1 mg Oradis TAB PO SCH (21:18)
[2023-12-26] MEDS: OLANZapine 10 mg TAB*ODT PO PRN (17:40)
[2023-12-28] MEDS: OLANZapine 10 mg TAB*ODT PO SCH (19:49)
[2023-12-31] MEDS: Nicotine GUM 4MG FRUIT FLAVOR PO PRN (14:31)
[2024-01-01] MEDS: OLANZapine 10 mg TAB*ODT PO SCH (19:26)
[2024-01-06] MEDS: Al Hydrox/Mg Hydrox/Simet LIQ 30 ML UDC PO PRN (16:06)
[2024-01-11] MEDS: OLANZapine 10 mg TAB*ODT PO ONE (15:49)
[2024-01-12] MEDS: OLANZapine 10 mg TAB*ODT PO PRN (18:34)
[2024-01-14] MEDS ORDERED: OLANZapine 5 mg TAB *ODT PO PRN (15:32)
[2024-01-15] MEDS: OLANZapine 10 mg TAB*ODT PO SCH (08:44)
== END 2024-01-30 11:30 | DRG 885 ==
LOC: ED 18:20 → EDHOLD 12-22 00:07 → BSU 12-22 01:25
PROVIDERS: ADMIT Psychiatry & Neurology Psychiatry; ATTEND Psychiatry & Neurology Psychiatry